=== PATIENT | female | born 1965 | race Caucasian/White ===

== ENCOUNTER → 2016-10-14 | Outpatient (CLI) | payer BC ==
[~2016-10-14] MED LIST: VALA500T60 PO
== END | disposition home or self-care (01) ==
LOC: C.LAB1850 09:43
PROVIDERS: ATTEND Family Medicine
DX: Z11.59 Encounter for screening for other viral diseases (principal)

== ENCOUNTER → 2017-01-06 | Outpatient (CLI) | payer BC ==
[~2017-01-06] MED LIST changes: +ATV5X PO; +CMP/10 PO; +DXM/4 PO; +FAMO20TA11 IV; +LVNIS40 SQ; +METO-157 PO; +MRLP527 PO; +ONDA-63 PO; +OXYC-292 PO; +OXYC-609 PO; +PANC1CAP PO; +PANT40TA2 PO; +PIPE1INJ11 IV; +SCOP1.5D2 TD; +SENN1TAB91 PO; +SIME1CAP9 PO; +VANC1CAP3 IV
== END | disposition home or self-care (01) ==
LOC: C.PAPS 08:55
PROVIDERS: ATTEND Obstetrics & Gynecology
DX: Z01.419 Encounter for gynecological examination (general) (routine) without abnormal findings (principal)

== ENCOUNTER → 2017-06-13 | Outpatient (CLI) | payer BC ==
[~2017-06-13] MED LIST changes: -ATV5X PO; -CMP/10 PO; -DXM/4 PO; -FAMO20TA11 IV; -LVNIS40 SQ; -METO-157 PO; -MRLP527 PO; -ONDA-63 PO; -OXYC-292 PO; -OXYC-609 PO; -PANC1CAP PO; -PANT40TA2 PO; -PIPE1INJ11 IV; -SCOP1.5D2 TD; -SENN1TAB91 PO; -SIME1CAP9 PO; -VANC1CAP3 IV
--- NOTE | 2017-06-14 15:12 | MAMMOGRAPHY REPORT ---
BILATERAL DIGITAL SCREENING MAMMOGRAM TOMOSYNTHESIS WITH CAD: 06/13/2017 CLINICAL HISTORY: Routine screening. Patient has no complaints. TECHNIQUE: Breast tomosynthesis in addition to standard 2D mammography was performed. Current study was also evaluated with a Computer Aided Detection (CAD) system. COMPARISON: Comparison is made to exams dated: 06/10/2016 mammogram, 06/02/2015 mammogram, 05/30/2014 ma mmogram, 05/28/2013 mammogram, 05/26/2012 mammogram, and 05/27/2011 mammogram - [facility]. BREAST COMPOSITION: There are scattered areas of fibroglandular density in both breasts. FINDINGS: There are 3 stable circumscribed subcentimeter masses in the left breast. A few benign ri m calcifications bilaterally. No new suspicious mass, architectural distortion or cluster of microcal cifications is seen. IMPRESSION: ACR BI-RADS CATEGORY 2: BENIGN There is no mammographic evidence of malignancy. A 1 year screening mammogram is recommended. The pa tient will receive written notification of the results. Approximately 10% of breast cancers are not detected with mammography. A negative mammographic report should not delay biopsy if a clinically suggestive mass is present. Maricruz Zeng M.D. ay/:06/13/2017 16:21:51 Laborer Pipelines: Rona PATEL)(Angie)(BD), [facility] letter sent: Normal 1/2 BI-RADS Code: ACR BI-RADS Category 2: Benign
== END | disposition home or self-care (01) ==
LOC: C.MAMM 10:28
PROVIDERS: ATTEND Obstetrics & Gynecology
DX: Z12.31 Encounter for screening mammogram for malignant neoplasm of breast (principal)

== ENCOUNTER → 2017-06-25 | Outpatient (CLI) | payer BC ==
[2017-06-25 16:49] LABS: BASO % 0.6 %; BASO ABS # 0.05 K/uL (0-0.2); EOS % 1.1 %; HEMATOCRIT 40.2 % (37-47); IG% 0.2 %; LYMPH % 30.7 %; LYMPH ABS # 2.63 K/uL (1.2-3.4); MEAN CELL VOLUME 94.8 fL (80-100); MEAN CORPUSCULAR HEMOGLOBIN 31.4 pg (25-34); MEAN PLATELET VOLUME 12.2 fL (7.4-10.4); MONO % 9.5 %; NEUT % 57.9 %; PLATELET COUNT 209 K/uL (130-400); RED BLOOD COUNT 4.24 M/uL (4.2-5.4); WHITE BLOOD COUNT 8.56 K/uL (4.8-10.8)
[2017-06-25 16:50] LABS: COMPLETE YES; MEAN CORPUSCULAR HGB CONC 33.1 g/dl (32-36)
[2017-06-25 17:05] LABS: PROTHROMBIN TIME (PATIENT) 10.3 SECONDS (9.0-12.0)
[2017-06-25 17:32] LABS: ALKALINE PHOSPHATASE 463 U/L (45-117); ALT/SGPT 628 U/L (12-78); AST/SGOT 292 U/L (15-37); BLOOD UREA NITROGEN 12 mg/dl (7-18); BUN/CREATININE RATIO 14.9 (10-20); CALCIUM 9.7 mg/dl (8.5-10.1); CARBON DIOXIDE 26 mmol/L (21-32); CHLORIDE 102 mmol/L (98-107); CREATININE 0.77 mg/dl (0.60-1.20); GLUCOSE 88 mg/dl (70-99); POTASSIUM 3.5 mmol/L (3.5-5.1); SODIUM 138 mmol/L (136-145)
--- NOTE | 2017-06-25 17:47 | DIAGNOSTIC IMAGING REPORT ---
ABDOMINAL ULTRASOUND, RIGHT UPPER QUADRANT HISTORY: JAUNDICE R17 *STAT JAUNDICE R17 *STAT. COMPARISON: Abdomen and pelvis CT 11/07/2015. FINDINGS: Pancreas: The pancreas demonstrates a normal echotexture. Main pancreatic duct is normal in caliber measuring 2 mm Liver: 20 cm in length. There is moderate intrahepatic bile duct dilatation. Gallbladder: The gallbladder is distended measuring up to 13 cm in length. The gallbladder is filled with sludge. CBD: Distended up to 1.3 cm. Right kidney: No hydronephrosis. The 2.0 x 1.9 x 1.8 cm complex interpolar lesion is again noted. This is similar in size compared to the prior study. IMPRESSION: 1. Interval development of moderate intra and extra hepatic bile duct dilatation. This raises the possibility of an obstructing gallstone or mass. Of note, the pancreas appears to be unremarkable and the main pancreatic duct is not distended. Follow-up ERCP is recommended for further evaluation. 2. Distended gallbladder filled with sludge. This could represent developing acute cholecystitis. Clinical correlation recommended. 3. Mild hepatomegaly. 4. No significant change in size in the 2 cm complex indeterminate lesion within the right kidney. Electronically signed by: Jone Huitron M.D. 06/25/2017 5:46 PM Dictated Date/Time: 06/25/2017 5:40 PM
[2017-06-25 18:04] LABS: URINE APPEARANCE CLEAR (CLEAR); URINE COLOR DK YELLOW; URINE EPITHELIAL CELL AUTO 0-5 /lpf (0-5); URINE NITRITE NEG (NEG); URINE SPECIFIC GRAVITY 1.012 (1.000-1.030); UROBILINOGEN NEG (NEG)
[2017-06-25 18:19] LABS: MANUAL MICROSCOPIC REQUIRED? NO; REVIEW REQ? NO; URINE BILIRUBIN 1+ (NEG)
== END | disposition home or self-care (01) ==
LOC: C.ULTR 15:37
PROVIDERS: ATTEND Family Medicine Adolescent Medicine
DX: R17 Unspecified jaundice (principal)

== ENCOUNTER 2017-06-28 06:00 | Inpatient (IN) | payer BC ==
[~2017-06-28] VITALS: Ht 160 cm; Wt 72.7 kg
[2017-06-28] MEDS ORDERED: SODIUM CHLORIDE 0.9% 1000ML 1,000 ML IV STA ×2 (06:43→07:20)
[2017-06-28 06:45] LABS: BASO % 0.6 %; BASO ABS # 0.05 K/uL (0-0.2); COMPLETE YES; EOS % 1.4 %; HEMATOCRIT 38.9 % (37-47); IG% 0.1 %; LYMPH ABS # 2.35 K/uL (1.2-3.4); MEAN CELL VOLUME 91.3 fL (80-100); MEAN CORPUSCULAR HEMOGLOBIN 32.9 pg (25-34); MEAN PLATELET VOLUME 12.2 fL (7.4-10.4); MONO % 9.8 %; NEUT % 58.1 %; PLATELET COUNT 200 K/uL (130-400); RED BLOOD COUNT 4.26 M/uL (4.2-5.4); WHITE BLOOD COUNT 7.84 K/uL (4.8-10.8)
[2017-06-28] MEDS ORDERED: ONDANSETRON INJ 2 MG/ML 2 ML VIAL IV STA (06:47)
[2017-06-28] MEDS: HYDROmorphone INJ 1 MG/ML SYR IV PRN ×3 (06:54→22:01)
[2017-06-28 07:06] LABS: ALB/GLOB RATIO 0.8 (0.9-2); BUN/CREATININE RATIO 14.6 (10-20); CALCIUM 9.8 mg/dl (8.5-10.1); CREATININE 0.6 mg/dl (0.60-1.20); POTASSIUM 3.8 mmol/L (3.5-5.1)
[2017-06-28] MEDS ORDERED: AMPICILLIN/SULBACTAM SOD INJ 3,000 MG in SODIUM CHLORIDE 0.9% 100ML 100 ML IV ONE (07:15)
--- NOTE | 2017-06-28 08:13 | DIAGNOSTIC IMAGING REPORT ---
GALLBLADDER-ABD LIMITED HISTORY: 52 years-old Female worsening jaundice, severe RUQ pain acute right upper quadrant abdominal pain. Initial exam. COMPARISON: Ultrasound of the abdomen 06/25/2017, CT study 11/07/2015 TECHNIQUE: Multiple real-time sonographic images of the abdominal right upper quadrant were obtained assessing grayscale appearance and color flow. FINDINGS: The imaged pancreas is unremarkable and the pancreatic duct measures within the upper limits of normal at 3 mm. The common bile duct is again dilated, 1.1 cm which appears unchanged from prior. Moderate intrahepatic biliary ductal dilation is redemonstrated. No definite obstructing stone or mass is seen. The liver measures up to 21.8 cm in length. Distended sludge-filled gallbladder is again seen without definite gallbladder wall thickening. Gallbladder measures up to 13.3 cm in length. There is trace pericholecystic fluid noted. A positive sonographic Wild's sign was not reported. Complex indeterminate 2.4 cm lesion of the interpolar right kidney is again seen. This appears unchanged from prior. IMPRESSION: 1. Persistent moderate intrahepatic and extrahepatic biliary ductal dilation without definite obstructing stone or mass identified. The pancreatic duct measures in the upper limits of normal at 3 mm. Again, correlation with ERCP is recommended. 2. Sludge filled distended gallbladder is noted with trace pericholecystic fluid. Correlate clinically to exclude developing acute cholecystitis. 3. Complex indeterminate 2.4 cm right kidney lesion redemonstrated. The above report was generated using voice recognition software. It may contain grammatical, syntax or spelling errors. Electronically signed by: Matt Escalante M.D. 06/28/2017 8:11 AM Dictated Date/Time: 06/28/2017 8:05 AM
[2017-06-28] MEDS ORDERED: MAGNESIUM HYDROXIDE SUSP 30 ML UDC PO PRN (08:45)
[2017-06-28] MEDS ORDERED: ACETAMINOPHEN 325 MG TAB PO PRN (08:45)
[2017-06-28] MEDS ORDERED: ONDANSETRON INJ 2 MG/ML 2 ML VIAL IV PRN ×2 (08:45→15:45)
[2017-06-28] MEDS ORDERED: POLYETHYLENE (MIRALAX) 17 GM PACK PO PRN (08:45)
[2017-06-28 09:08] VITALS: O2SAT 99; Ht 160 cm; Wt 72.7 kg
--- NOTE | 2017-06-28 09:17 | History and Physical ---
History & Physical Date & Time of Service: Jun 28, 2017 at 08:54 Chief Complaint: Jaundice,Nausea,Pain Primary Care Physician: Carla Carolina C.R.N.P. History of Present Illness Source: patient This is a 52 yo F with PMHx of recurrent SBO, asthma, depression, R renal mass found to be renal glomerulosclerosis sized 1.[address] a/p on 11/07/15, and genital herpes simplex virus who presents after 1 week of feeling ill/abdominal pain. She reports last tuesday thought she had food poisioning d/t 1 episode of nausea and vomiting. She has had a decline in appetite over the past week as well. On Tuesday she developed worsening abdominal pain in the RUQ which wrapped around to her back, pain worsened, and due to concerns for hx of SBO, she presented to an urgent care center. A RUQ ultrasound was completed showing gallbladder sludge. She was scheduled for an ERCP today with Dr. Jackman. Pt has also noticed an increase in yellow colored skin and eyes. Yesterday her pain , nausea, and episodes of vomiting worsened so she presented to the ER today. Pt notes her bowel s moved yesterday and were tim colored, loose and floating. She denies fever, chills or sweats. Pt denies intake of alcohol other than 1x monthly. 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 Her pain is currently tolerable after pain medications administered in the ER. Here in [place] [id number], total bili is 9.8. AST 306, ALT 535, Alk phos 496. CBC wnl. VSS Gallbladder U/S reviewed showing CBD dilation to 1.1 cm, gallbladder sludge and trace pericholecystic fluid, and renal lesion measuring 2.4 cm. Past Medical/Surgical History Medical Problems: (1) Abdominal pain Status: Resolved (2) Asthma, Unspecified Status: Chronic (3) Depressive Disorder Nec Status: Chronic (4) Hand laceration Status: Resolved (5) Hemoperitoneum Status: Resolved (6) Ileus Status: Resolved (7) Ileus Status: Resolved (8) Ovarian cyst Status: Resolved (9) Renal cyst Status: Resolved (10) Small bowel obstruction Status: Resolved (11) Syncope Status: Resolved Surgical Problems: (1) History of appendectomy Status: Resolved (2) S/P tubal ligation Status: Resolved (3) Status post endometrial ablation Status: Resolved Family History Patient reports no known family medical history. Social History Smoking Status: Never Smoker Smokeless Tobacco Use: No Alcohol Use: occasionally Drug Use: none Marital Status: Occupational Status: employed Immunizations History of Influenza Vaccine: Unknown History of Tetanus Vaccine?: Unknown History of Pneumococcal: Unknown History of Hepatitis B Vaccine: Unknown Multi-Drug Resistant Organisms History of MDRO: No Allergies Coded Allergies: No Known Allergies (Unverified , 06/28/17) Home Medications Scheduled Valacyclovir (Valtrex), 500 MG PO DAILY Review of Systems Constitutional: No fever, No chills, No sweats Eyes: No diplopia, No problem reported ENT: No trouble swallowing Respiratory: No cough, No shortness of breath, No dyspnea on exertion Cardiovascular: No chest pain, No palpitations Abdomen: + pain, + nausea, + vomiting Musculoskeletal: No joint pain, No swelling Genitourinary - Female: No dysuria Neurologic: No memory loss, No numbness/tingling Psychiatric: No depression symptoms, No anxiety Endocrine: No fatigue Integumentary: No rash, No itch Physical Exam Vital Signs Date Time Temp Pulse Resp B/P (MAP) Pulse Ox O2 Delivery O2 Flow Rate FiO2 06/28/17 07:56 61 22 132/79 97 Room Air 06/28/17 06:57 67 23 148/95 99 Room Air 06/28/17 06:38 55 06/28/17 06:37 61 16 156/97 96 Room Air 06/28/17 06:03 36.9 70 20 156/83 97 Room Air General Appearance: WD/WN, + mild distress, + pertinent finding (+ jaundice) Head: normocephalic, atraumatic Eyes: PERRL, EOMI, + abnormal sclerae exam (+icterus) ENT: hearing grossly normal, pharynx normal Neck: supple, no JVD Respiratory/Chest: lungs clear, no respiratory distress, no accessory muscle use Cardiovascular: regular rate, rhythm, no murmur, + bradycardia Abdomen/GI: soft, + tenderness (RUQ, no guarding or rebound tenderness, negative Murpheys sign), + pertinent finding (hypoactive bowel sounds) Back: normal inspection, no CVA tenderness Extremities/Musculoskelatal: no calf tenderness, no pedal edema Neurologic/Psych: alert, normal mood/affect, oriented x 3 Skin: warm/dry, + jaundice Diagnostics Laboratory Results Results Past 24 Hours Test 06/28/17 06:25 Range/Units White Blood Count 7.84 4.8-10.8 K/uL Red Blood Count 4.26 4.2-5.4 M/uL Hemoglobin 14.0 12.0-16.0 g/dL Hematocrit 38.9 37-47 % Mean Corpuscular Volume 91.3 80-100 fL Mean Corpuscular Hemoglobin 32.9 25-34 pg Mean Corpuscular Hemoglobin Concent 36.0 32-36 g/dl Platelet Count 200 130-400 K/uL Mean Platelet Volume 12.2 7.4-10.4 fL Neutrophils (%) (Auto) 58.1 % Lymphocytes (%) (Auto) 30.0 % Monocytes (%) (Auto) 9.8 % Eosinophils (%) (Auto) 1.4 % Basophils (%) (Auto) 0.6 % Neutrophils # (Auto) 4.55 1.4-6.5 K/uL Lymphocytes # (Auto) 2.35 1.2-3.4 K/uL Monocytes # (Auto) 0.77 0.11-0.59 K/uL Eosinophils # (Auto) 0.11 0-0.5 K/uL Basophils # (Auto) 0.05 0-0.2 K/uL RDW Standard Deviation 43.3 36.4-46.3 fL RDW Coefficient of Variation 13.0 11.5-14.5 % Immature Granulocyte % (Auto) 0.1 % Immature Granulocyte # (Auto) 0.01 0.00-0.02 K/uL Sodium Level 137 136-145 mmol/L Potassium Level 3.8 3.5-5.1 mmol/L Chloride Level 102 98-107 mmol/L Carbon Dioxide Level 24 21-32 mmol/L Anion Gap 11.0 3-11 mmol/L Blood Urea Nitrogen 9 7-18 mg/dl Creatinine 0.60 0.60-1.20 mg/dl Est Creatinine Clear Calc Drug Dose 102.4 ml/min Estimated GFR () 119.8 Estimated GFR (Non- 103.3 BUN/Creatinine Ratio 14.6 10-20 Random Glucose 87 70-99 mg/dl Calcium Level 9.8 8.5-10.1 mg/dl Total Bilirubin 9.8 0.2-1 mg/dl Aspartate Amino Transf (AST/SGOT) 306 15-37 U/L Alanine Aminotransferase (ALT/SGPT) 535 12-78 U/L Alkaline Phosphatase 496 45-117 U/L Total Protein 7.8 6.4-8.2 gm/dl Albumin 3.5 3.4-5.0 gm/dl Globulin 4.3 2.5-4.0 gm/dl Albumin/Globulin Ratio 0.8 0.9-2 Lipase 83291 73-393 U/L Diagnostic Radiology GALLBLADDER-ABD LIMITED HISTORY: 52 years-old Female worsening jaundice, severe RUQ pain acute right upper quadrant abdominal pain. Initial exam. COMPARISON: Ultrasound of the abdomen 06/25/2017, CT study 11/07/2015 TECHNIQUE: Multiple real-time sonographic images of the abdominal right upper quadrant were obtained assessing grayscale appearance and color flow. FINDINGS: The imaged pancreas is unremarkable and the pancreatic duct measures within the upper limits of normal at 3 mm. The common bile duct is again dilated, 1.1 cm which appears unchanged from prior. Moderate intrahepatic biliary ductal dilation is redemonstrated. No definite obstructing stone or mass is seen. The liver measures up to 21.8 cm in length. Distended sludge-filled gallbladder is again seen without definite gallbladder wall thickening. Gallbladder measures up to 13.3 cm in length. There is trace pericholecystic fluid noted. A positive sonographic Wild's sign was not reported. Complex indeterminate 2.4 cm lesion of the interpolar right kidney is again seen. This appears unchanged from prior. IMPRESSION: 1. Persistent moderate intrahepatic and extrahepatic biliary ductal dilation without definite obstructing stone or mass identified. The pancreatic duct measures in the upper limits of normal at 3 mm. Again, correlation with ERCP is recommended. 2. Sludge filled distended gallbladder is noted with trace pericholecystic fluid. Correlate clinically to exclude developing acute cholecystitis. 3. Complex indeterminate 2.4 cm right kidney lesion redemonstrated. The above report was generated using voice recognition software. It may contain grammatical, syntax or spelling errors. Electronically signed by: Matt Escalante M.D. 06/28/2017 8:11 AM Dictated Date/Time: 06/28/2017 8:05 AM The status of this report is Signed. EKG Vent. rate 57 BPM WY interval 128 ms QRS duration 108 ms QT/QTc 450/438 ms P-R-T axes 38 49 38 Sinus bradycardia Minimal voltage criteria for LVH, may be normal variant Borderline ECG When compared with ECG of 13-NOV-2014 14:50, No significant change was found Impression Assessment and Plan This is a 52 yo F with PMHx of recurrent SBO, asthma, depression, R renal mass found to be renal glomerulosclerosis sized 1.[address] a/p on 11/07/15, and genital herpes simplex virus who presents after 1 week of feeling ill/abdominal pain. Pancreatitis, possibly due to gallstone/sludge ?Cholecystitis - [place] [address], total bili is 9.8. AST 306, ALT 535, Alk phos 496. - CBC wnl. - VSS - Gallbladder U/S reviewed showing CBD dilation to 1.1 cm, gallbladder sludge and trace pericholecystic fluid, and renal lesion measuring 2.4 cm. - Was started on Unasyn in the ER, will continue on Zosyn - Lactate ringers at 200ml/hr x 1 day - Pain control with dilaudid IV - GI consult, Dr. Tavera for ERCP today - NPO except meds for now Hx of SBO - Pt initially had SBO occur in 2012 which was resolved with bowel rest. Previous surgical intervention includes appendectomy, endometrial ablation and tubal ligation. Had laparoscopic surgery in Sep 2016 for lysis of adhesions and has not had SBO since that time - Repeat CT scan to r/o Hx of R renal lesion - Last CT completed on 11/07/15 which showed stability of the lesion. Biopsy was done in 2013 which showed renal glomerulosclerosis and is being monitored by her PCP, Dr. Harry with yearly CTs. - Repeat CT abd ordered here in the ER Bradycardia - Athletic heart secondary to intensive physical training. Asthma - Stable, not currently on any medications Depression - Improved with exercise and emotional wellbeing. 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 DVT ppx: Teds, scds, heparin subq CODE STATUS: FULL CODE Disposition: From home, discharge when medically stable. Level of Care Med/Surg Advanced Directives Existing Advance Directive: No Existing Living Will: No Existing Power of Machine Ii Cutter: No Existing Health Care Proxy: No Resuscitation Status FULL RESUSCITATION VTE Prophylaxis VTE Risk Assessment Done? Y/N: Yes Risk Level: Low Given or contraindicated: Unfractionated heparin SQ, T.E.D. Stockings, SCD's Note Attending Admission note & attestation: Pt seen/examined, chart reviewed, care plan d/w AMIE Ortiz. I agree with the mohan components of her admission documentation. 52yo female with h/o SBO and right-sided renal lesion (benign) who presented today with worsening abdominal pain. Labs c/w acute pancreatitis along with obstructive jaundice. Symptoms began about 7-10 days ago when she developed painless jaundice. This, however, changed in the last 3-4 days when her abdominal pain began. Chronically she has been in good health as she had been training for an "[employer] " competition. PMH, PSH, allergies, meds, sochx, famhx, ros - reviewed VSS gen - NAD, anxious skin - jaundice to about the upper chest eyes - icteric mouth - MM dry heart - RRR lungs - CTA b/l abd - liver edge palpable but nontender, minimal tenderness epigastric region, BS+ ext - no edema CT findings reviewed labs reviewed A/P: 1. acute pancreatitis - 2nd to gallstones/sludge? NPO, copious LR, pain meds, serial labs 2. abnormal pancreas with potential pancreatic head lesion - concerning for cancer. 3. liver lesions - concerning for metastatic cancer. 4. obstructive jaundice - to endo suite today for ERCP with Dr. Tavera. ERCP will dictate plan of care May need gen surgery consult Misha Walter MD Additional Copies To Carla Carolina C.R.N.P.
[2017-06-28] MEDS ORDERED: OPTIRAY 320 IV PRN (09:30)
[2017-06-28 09:39] LABS: URINE APPEARANCE CLOUDY (CLEAR); URINE COLOR DK YELLOW; URINE EPITHELIAL CELL AUTO 0-5 /lpf (0-5); URINE NITRITE NEG (NEG); URINE SPECIFIC GRAVITY 1.019 (1.000-1.030); UROBILINOGEN NEG (NEG); ZZUR CULT IF INDIC CLEAN CATCH NO
[2017-06-28 09:48] LABS: MANUAL MICROSCOPIC REQUIRED? NO; REVIEW REQ? NO; URINE BILIRUBIN 3+ (NEG)
--- NOTE | 2017-06-28 09:51 | EMERGENCY ROOM VISIT NOTE ---
History Report prepared by Duc: Patrick Blake Under the Supervision of: Dr. Jelani Acevedo M.D. First contact with patient: 06:43 Chief Complaint: OTHER COMPLAINT Stated Complaint: JAUNDICE,NAUSEA,PAIN History of Present Illness The patient is a 52 year old female who presents to the Emergency Room with complaints of worsening abdominal pain for the past three days. She currently rates her discomfort as an 8/10 in severity. The patient additionally states that she has been jaundiced for the past four days, and she states that she is scheduled for a ERCP today. She states that recently they did an ultrasound of her gall bladder, and they found sludge, her bile ducts were enlarged, her liver was enlarged, and her liver enzymes are elevated. She additionally has been tested for hepatitis, and she was negative for C and B, though she is unsure about A. She states that she has no known exposure to hepatitis. She states that she has not taken a lot of Tylenol, alcohol, and she has not eaten any raw mushrooms. She states that she has not been prescribed anything for pain , and she states that she has had a lot of surgeries, and her last one was in September to remove scar tissue in her bowels. She states that she has been nauseous, and she has been having some diarrhea. Pt denies LOC, headache, fevers , chills, diaphoresis, visual changes, neck pain, chest pain, breathing difficulties, vomiting, back pain, melena, hematochezia, urinary symptoms, numbness, weakness, lymphadenopathy, rash, itchiness, or other complaints. Source of History: patient Onset: three days ago Position: abdomen Symptom Intensity: 8/10 Timing: worsening Associated Symptoms: + nausea, + diarrhea Note: Associated symptoms: Jaundiced Review of Systems See HPI for pertinent positives and negatives. A total of ten systems were reviewed and were otherwise negative. Past Medical & Surgical Medical Problems: (1) Abdominal pain (2) Acute gallstone pancreatitis (3) Asthma, Unspecified (4) Asthma, Unspecified (5) Depressive Disorder Nec (6) Hand laceration (7) Hemoperitoneum (8) Ileus (9) Ileus (10) Ovarian cyst (11) Renal cyst (12) Small bowel obstruction (13) Small bowel obstruction (14) Syncope Surgical Problems: (1) History of appendectomy (2) S/P tubal ligation (3) Status post endometrial ablation Family History Patient reports no known family medical history. Social History Smoking Status: Never Smoker Alcohol Use: occasionally Drug Use: none Marital Status: Housing Status: lives with family Occupation Status: employed Current/Historical Medications Scheduled Valacyclovir (Valtrex), 500 MG PO DAILY Allergies Uncoded Allergies: STITCHES (Allergy, Unknown, did not heal, 06/28/17) Physical Exam Vital Signs Date Time Temp Pulse Resp B/P (MAP) Pulse Ox O2 Delivery O2 Flow Rate FiO2 06/28/17 09:10 58 21 126/72 99 Room Air 06/28/17 09:08 99 Room Air 06/28/17 07:56 61 22 132/79 97 Room Air 06/28/17 06:57 67 23 148/95 99 Room Air 06/28/17 06:38 55 06/28/17 06:37 61 16 156/97 96 Room Air 06/28/17 06:03 36.9 70 20 156/83 97 Room Air Physical Exam GENERAL: Awake, alert, uncomfortable-appearing, in no distress HENT: Normocephalic, atraumatic. Oropharynx unremarkable. EYES: Normal conjunctiva. Scleral icterus. NECK: Supple. No nuchal rigidity. FROM. No JVD. RESPIRATORY: Clear to auscultation. CARDIAC: Regular rate, normal rhythm. Extremities warm and well perfused. Pulses equal. ABDOMEN: Right upper quadrant tenderness. Soft, non-distended. No rebound or guarding. No masses. RECTAL: Deferred. MUSCULOSKELETAL: Chest examination reveals no tenderness. The back is symmetrical on inspection without obvious abnormality. There is no CVA tenderness to palpation. No joint edema. LOWER EXTREMITIES: Calves are equal size bilaterally and non-tender. No edema. No discoloration. NEURO: Normal sensorium. No sensory or motor deficits noted. SKIN: Significant jaundice. No rash Medical Decision & Procedures ER Provider Diagnostic Interpretation: Radiology results as stated below per my review and radiologist interpretation: GALLBLADDER-ABD LIMITED HISTORY: 52 years-old Female worsening jaundice, severe RUQ pain acute right upper quadrant abdominal pain. Initial exam. COMPARISON: Ultrasound of the abdomen 06/25/2017, CT study 11/07/2015 TECHNIQUE: Multiple real-time sonographic images of the abdominal right upper quadrant were obtained assessing grayscale appearance and color flow. FINDINGS: The imaged pancreas is unremarkable and the pancreatic duct measures within the upper limits of normal at 3 mm. The common bile duct is again dilated, 1.1 cm which appears unchanged from prior. Moderate intrahepatic biliary ductal dilation is redemonstrated. No definite obstructing stone or mass is seen. The liver measures up to 21.8 cm in length. Distended sludge-filled gallbladder is again seen without definite gallbladder wall thickening. Gallbladder measures up to 13.3 cm in length. There is trace pericholecystic fluid noted. A positive sonographic Wild's sign was not reported. Complex indeterminate 2.4 cm lesion of the interpolar right kidney is again seen. This appears unchanged from prior. IMPRESSION: 1. Persistent moderate intrahepatic and extrahepatic biliary ductal dilation without definite obstructing stone or mass identified. The pancreatic duct measures in the upper limits of normal at 3 mm. Again, correlation with ERCP is recommended. 2. Sludge filled distended gallbladder is noted with trace pericholecystic fluid. Correlate clinically to exclude developing acute cholecystitis. 3. Complex indeterminate 2.4 cm right kidney lesion redemonstrated. The above report was generated using voice recognition software. It may contain grammatical, syntax or spelling errors. Electronically signed by: Matt Escalante M.D. 06/28/2017 8:11 AM Dictated Date/Time: 06/28/2017 8:05 AM Laboratory Results 06/28/17 06:25 Red Blood Count 4.26, Mean Corpuscular Volume 91.3, Mean Corpuscular Hemoglobin 32.9, Mean Corpuscular Hemoglobin Concent 36.0, Mean Platelet Volume 12.2, Neutrophils (%) (Auto) 58.1, Lymphocytes (%) (Auto) 30.0, Monocytes (%) (Auto) 9.8, Eosinophils (%) (Auto) 1.4, Basophils (%) (Auto) 0.6, Neutrophils # (Auto) 4.55, Lymphocytes # (Auto) 2.35, Monocytes # (Auto) 0.77, Eosinophils # (Auto) 0.11, Basophils # (Auto) 0.05 06/28/17 06:25 Test 06/28/17 06:25 06/28/17 09:03 White Blood Count 7.84 K/uL (4.8-10.8) Red Blood Count 4.26 M/uL (4.2-5.4) Hemoglobin 14.0 g/dL (12.0-16.0) Hematocrit 38.9 % (37-47) Mean Corpuscular Volume 91.3 fL (80-100) Mean Corpuscular Hemoglobin 32.9 pg (25-34) Mean Corpuscular Hemoglobin Concent 36.0 g/dl (32-36) Platelet Count 200 K/uL (130-400) Mean Platelet Volume 12.2 fL (7.4-10.4) Neutrophils (%) (Auto) 58.1 % Lymphocytes (%) (Auto) 30.0 % Monocytes (%) (Auto) 9.8 % Eosinophils (%) (Auto) 1.4 % Basophils (%) (Auto) 0.6 % Neutrophils # (Auto) 4.55 K/uL (1.4-6.5) Lymphocytes # (Auto) 2.35 K/uL (1.2-3.4) Monocytes # (Auto) 0.77 K/uL (0.11-0.59) Eosinophils # (Auto) 0.11 K/uL (0-0.5) Basophils # (Auto) 0.05 K/uL (0-0.2) RDW Standard Deviation 43.3 fL (36.4-46.3) RDW Coefficient of Variation 13.0 % (11.5-14.5) Immature Granulocyte % (Auto) 0.1 % Immature Granulocyte # (Auto) 0.01 K/uL (0.00-0.02) Anion Gap 11.0 mmol/L (3-11) Est Creatinine Clear Calc Drug Dose 102.4 ml/min Estimated GFR () 119.8 Estimated GFR (Non- 103.3 BUN/Creatinine Ratio 14.6 (10-20) Calcium Level 9.8 mg/dl (8.5-10.1) Total Bilirubin 9.8 mg/dl (0.2-1) Aspartate Amino Transf (AST/SGOT) 306 U/L (15-37) Alanine Aminotransferase (ALT/SGPT) 535 U/L (12-78) Alkaline Phosphatase 496 U/L (45-117) Total Protein 7.8 gm/dl (6.4-8.2) Albumin 3.5 gm/dl (3.4-5.0) Globulin 4.3 gm/dl (2.5-4.0) Albumin/Globulin Ratio 0.8 (0.9-2) Lipase 92954 U/L (73-393) Urine Color DK YELLOW Urine Appearance CLOUDY (CLEAR) Urine pH 7.0 (4.5-7.5) Urine Specific [place] 1.019 (1.000-1.030) Urine Protein NEG (NEG) Urine Glucose (UA) NEG (NEG) Urine Ketones 2+ (NEG) Urine Occult Blood NEG (NEG) Urine Nitrite NEG (NEG) Urine Bilirubin 3+ (NEG) Urine Urobilinogen NEG (NEG) Urine Leukocyte Esterase TRACE (NEG) Urine WBC (Auto) 0 /hpf (0-5) Urine RBC (Auto) 0-4 /hpf (0-4) Urine Hyaline Casts (Auto) 0 /lpf (0-5) Urine Epithelial Cells (Auto) 0-5 /lpf (0-5) Urine Bacteria (Auto) NEG (NEG) Laboratory results reviewed by me Medications Administered Medications (Trade) Dose Ordered Sig/Poppy Route Start Time Stop Time Status Last Admin Dose Admin Sodium Chloride 1,000 ml @ 250 mls/hr Q4H STAT IV 06/28/17 06:43 06/28/17 10:42 06/28/17 06:54 250 MLS/HR Hydromorphone HCl (Dilaudid Inj) 1 mg Q15M PRN IV 06/28/17 07:00 07/12/17 06:59 06/28/17 09:08 1 MG Ondansetron HCl (Zofran Inj) 4 mg NOW STAT IV 06/28/17 06:47 06/28/17 06:48 DC 06/28/17 06:54 4 MG Ampicillin Sodium/ Sulbactam Sodium 3000 mg/Sodium Chloride 108 ml @ 200 mls/hr ONE ONCE IV 06/28/17 07:15 06/28/17 07:47 DC 06/28/17 07:29 200 MLS/HR Sodium Chloride 1,000 ml @ 999 mls/hr Q1H1M STAT IV 06/28/17 07:20 06/28/17 08:20 DC 06/28/17 07:29 999 MLS/HR ECG Indication: abdominal pain Rate (beats per minute): 57 Rhythm: sinus bradycardia Findings: no acute ischemic change, no ectopy, other (LVH) ED Course 0643: The patient was evaluated in room A3. A complete history and physical exam was performed. I ordered Sodium Chloride 1000 ml @ 250 mls/hr IV 0647: Zofran Inj 4mg IV 0700: Dilaudid Inj 1mg IV 0715: Ampicillin Sodium/ Sulbactam Sodium 3000mg/ Sodium Chloride 108ml @ 200mls/hr IV 0720: Sodium Chloride 1000 ml @ 999 mls/hr IV 0724: I reevaluated the patient, and I discussed the treatment plan with her. 0755: I discussed the patient's case with ALEXANDRIA Way, and he states that he will evaluate the patient. He agrees with [facility] use of antibiotics, CT scan, and further evaluation by a hospitalist. 08: Discussed the patient's case With Dr. Walter. The patient will be evaluated for further treatment and disposition. 0905: I reevaluated the patient, and she was doing well. Medical Decision Triage Nursing notes reviewed. The patient's presentation and history were concerning for abdominal and jaundice. Etiologies such as biliary pathology, pancreatitis, appendicitis, diverticulitis , obstruction, inflammatory bowel disease, renal colic, PUD, mesenteric ischemia, aortic pathology, infections, genitourinary, UTI, perforated viscus, as well as others were entertained. The patient was evaluated. She was uncomfortable. She had right upper quadrant tenderness. She was hydrated with normal saline and received a normal saline bolus. She received Zofran and multiple doses of IV Dilaudid. Blood work was obtained. Her CBC was unremarkable. Chemistry panel revealed elevated LFTs which were slightly worse than prior. The patient's urinalysis is pending. Her right upper quadrant ultrasound revealed findings concerning for an obstructive pattern with possible early cholecystitis. Given the pain the patient received IV Unasyn. I did consult with estrogen neurology who will evaluate the patient. I also consulted with internal medicine for admission. CT scan of the abdomen and pelvis was ordered. Results are pending. The patient was evaluated in the Emergency Room by internal medicine and admitted for further treatment. Medication Reconcilliation Current Medication List: was personally reviewed by me Blood Pressure Screening Patient's blood pressure: Elevated blood pressure Blood pressure disposition: Elevated BP felt to be situational Consults Time Called: 726 Consulting Physician: ALEXANDRIA Way Returned Call: [phone] I discussed the patient's case with Dr. Inverso, GI, and he states that he will evaluate the patient. He agrees with [facility] use of antibiotics, CT scan, and further evaluation by a hospitalist. Additional Consults: Time Called: 726 Consulted Physician: Dr. Walter Returned Call: 08 Additional Comments: Discussed the patient's case with Dr. Walter. The patient will be evaluated for further treatment and disposition. Impression Primary Impression: Pancreatitis Additional Impressions: Elevated LFTs Right upper quadrant abdominal pain Scribe Attestation The scribe's documentation has been prepared under my direction and personally reviewed by me in its entirety. I confirm that the note above accurately reflects all work, treatment, procedures, and medical decision making performed by me. Departure Information Dispostion Being Evaluated By Hospitalist Referrals Carla Carolina C.R.N.P. (PCP) Patient Instructions My [facility] Problem Qualifiers
[2017-06-28] MEDS ORDERED: PIPERACILLIN/TAZOBACTAM 4.5 GM/100ML D5W IV SCH (10:00)
[2017-06-28 10:30] VITALS: BP 154/87; PULSE 53; TEMP 36.6; O2SAT 96
--- NOTE | 2017-06-28 11:06 | DIAGNOSTIC IMAGING REPORT ---
ABDOMEN AND PELVIS CT WITH AND WITHOUT INTRAVENOUS CONTRAST, PANCREAS PROTOCOL HISTORY: Jaundice. Abnormal bile duct dilatation. elevated lfts, pancreatitis- pancreas protocol TECHNIQUE: Multiaxial CT images of the abdomen and pelvis were performed both before and after the intravenous administration of contrast to evaluate the pancreas. Oral contrast was also administered. COMPARISON STUDY: Abdominal ultrasound 06/28/2017. Abdomen and pelvis CT 11/07/2015. FINDINGS: Mild dependent changes seen within the lung bases. No suspicious lytic or blastic osseous lesions. No splenic masses. The adrenal glands are unremarkable. The gallbladder is mildly distended. There is again noted a 1.8 cm enhancing mass within the right kidney. This is stable to slightly increased in size compared to the studies dating back to 2013. Best seen on the delayed sequences there is a subtle 1.6 cm lesion within the periphery the right hepatic lobe on image 144. There may be an additional subtle slightly hypodense 1.2 cm lesion within the right hepatic lobe on image 188. The left kidney and adrenal glands are unremarkable. There is moderate intra and hepatic bile duct dilatation. There is abrupt cut off within the mid common bile duct. There is a subtle 2.1 cm hypoenhancing area within the pancreatic head at the level of the common bile duct narrowing. Therefore, this is consistent with a pancreatic mass. No retroperitoneal lymphadenopathy. Normal bladder, uterus, bilateral adnexa. No bowel wall thickening or obstruction. IMPRESSION: 1. Moderate intra and extra hepatic bile duct dilatation with an abrupt cut off at the mid common bile duct. At the location of the common bile duct narrowing there is a 2.1 cm hypoenhancing area at the pancreatic head consistent with a pancreatic mass. This is highly suspicious for pancreatic adenocarcinoma. 2. Stable to slight increase in size in the 1.8 cm enhancing lesion within the right kidney. This could represent a renal cell carcinoma. 3. There are 2 subtle lesions within the right hepatic lobe as described above. These were not present on the prior studies and are highly suspicious for metastatic disease. Electronically signed by: Jone Huitron M.D. 06/28/2017 11:05 AM Dictated Date/Time: 06/28/2017 10:47 AM
[2017-06-28] MEDS: LACTATED RINGER'S 1000ML 1,000 ML IV SCH ×3 (11:31→19:44)
--- NOTE | 2017-06-28 12:48 | History & Physical Bridge Note ---
H&P Re-Evaluation Bridge Note: I have examined the patient, reviewed the History & Physical and in the interval since the performance of the History & Physical I have noted the following changes of clinical significance: Full consult dictated Pt AAOx3 icteric Nl s1s2 Lungs CTA Abd soft NT/ND + BS - CCE ERCP with brushing No changes noted
[2017-06-28] MEDS: PIPERACILL/TAZOBAC IV 3.375 GM in DEXTROSE 5% 100ML 100 ML IV SCH (14:00)
[2017-06-28] MEDS: HEPARIN SOD 5000 UNIT/0.5 ML CARP SQ SCH ×2 (14:00→22:00)
--- NOTE | 2017-06-28 14:29 | GASTROINTESTINAL CONSULTATION ---
DATE OF CONSULTATION: 06/28/2017 CHIEF COMPLAINT: Gallstone pancreatitis, abnormal ultrasound, and abnormal liver tests. HISTORY OF PRESENT ILLNESS: Mrs. Guy is a 52-year-old white female, known to me, initially since yesterday at that time which she was seen in GI Clinic for an abnormal ultrasound and liver test. The patient was in her usual state of health until approximately 8 days ago or so when she began to notice increasing yellow appearance to her eyes and skin and some changes in her urine and stool color. She was actually training down in [place] for a half marathon and was seen at a local urgent clinic, where she was found to be jaundiced and was suspected of having viral hepatitis. It is unclear if she had any blood work done. The patient returned back to the [facility] where she lives and was seen in [facility] urgent clinic on Tuesday. An ultrasound at that time revealed markedly dilated intra and extrahepatic bile ducts along with an enlarged gallbladder filled with sludge. There was no evidence of acute cholecystitis. LFT showed an obstructive pattern, but there was no evidence of leukocytosis. She did not experience any fevers or chills during any of this time. Over the past 24-48 hours, she did experience a mild increase in abdominal pain, although this does not radiate to any place and was mostly in the right upper quadrant area. Plans were to have an outpatient ERCP this afternoon, As an afternoon case could not be added for the patient on Tuesday at the hospital. The patient was doing well overall, although approximately 10:00 p.m. through midnight, the patient noted an increase in abdominal discomfort and reports it as an 8/10 abdominal pain. She presented to the Emergency Room with there was evidence of elevated lipase around 25,000, mild increase in the LFTs that had previously elevated and an ultrasound that suggested a dilated gallbladder with sludge, some mild pericholecystic fluid and persistence of the dilated ductal system. I was contacted by the Emergency Room this morning at approximately 07:45 a.m. regarding the patient and plans for admission. PAST MEDICAL HISTORY: Includes a renal lesion that has been followed at [place], which has had a stable pattern. She had a CT scan in January 2017, which did not identify abnormalities in the liver, biliary system, pancreas ductal system or pancreas. The lesion in the right kidney was stable at that time. She does have a history of asthma, depressive disorder, hand laceration, surgeries for small bowel obstruction for which she underwent surgery [address] Iyer and this was as a result of prior gynecologic surgery with adhesion formation. These were taken down 1 year ago and the patient has actually done quite well without features of recurrent obstruction or abdominal pain. She has also a tubal ligation, endometrial ablation, renal cyst and ovarian cyst. SOCIAL HISTORY: The patient denies tobacco and only rarely uses alcoholic beverages. He is and employed at [employer]. ALLERGIES: TO STITCHES, but has no known drug allergies. HOME MEDICATIONS: Valtrex, but other than that she takes no other chronic medications either prescription or over the counter. FAMILY HISTORY: Noncontributory. There is no history of pancreatic cancer, liver disorders or gallstones. PHYSICAL EXAMINATION: VITAL SIGNS: Today on admission, the patient is afebrile at 36.9, blood pressure 156/83, heart rate 70, and respirations 20. GENERAL: The patient is awake, alert and oriented x3. She is 97% on room air. HEENT: Sclerae are anicteric. Conjunctiva is moist. Oral mucosa moist. NECK: There is no cervical or supraclavicular adenopathy. I do not appreciate thyromegaly. LUNGS: Clear to auscultation. There are no rales, rhonchi or wheezes on lung exam. ABDOMEN: Soft and flat. Tender mildly in the right upper quadrant and to a lesser extent in the right flank region. The patient does describe the pain wrapped around to the back on the right side, which was different than presentation yesterday. There is no evidence of ascites or shifting dullness. EXTREMITIES: Without clubbing, cyanosis or edema. RECTAL: Deferred. LABORATORY STUDIES: On admission this morning, white count 7.8, hemoglobin 14.0, MCV 91, and platelets 200,000. BUN and creatinine are 9 and 0.6, potassium 3.8, and sodium 137. The patient's LFTs are increased with now a total bilirubin of 9.8, which is up approximately 1 mg. AST of 306, ALT of 535, and alkaline phosphatase 496 with normal total protein and albumin. The lipase was elevated at 25,681. IMAGING STUDIES: On admission was a gallbladder study, which was described above and showed persistent intra and extrahepatic dilation without clear obstructing stone or mass identified. The pancreatic duct is 3 mm. Sludge was in the gallbladder and trace pericholecystic fluid was identified. Again, a renal lesion was identified in the right kidney and is chronic. After discussion with the ER attending, a CT scan was recommended along with antibiotics and the CT scan demonstrated features that are new compared to a prior CT scan in November 2015. Again, intra and extrahepatic bile duct dilation was noted to the level of mid common bile duct with a cutoff. Additionally, there is a common bile duct narrowing. There is a 2.1-cm hypoenhancing area at the pancreatic head consistent with a mass, which is suspicious for pancreatic adenocarcinoma. The renal lesion overall is stable to slight increase in size; however, 2 subtle right lesions within the right hepatic lobe are described. These were not seen previously. The one lesion is seen in the periphery of the right hepatic lobe and an additional possible subtle area within the right lobe of the liver. IMPRESSION: The patient is with symptoms of acute onset of jaundice without any meaningful weight loss over the past few months, although over the past 8 days, she did have an approximately 6-8 pound reduction of weight. She considers that some of her recent increase physical activity and dietary changes for a marathon training may have contributed to this and prior to this, she had actually reported a slight weight gain over the last many months. The early part of this syndrome was mostly painless, although 24-48 hours prior to admission today, she was experiencing some right upper quadrant pain. Differential diagnosis remains choledocholithiasis or sludge. There was evidence of sludge in the gallbladder. Acute cholecystitis is less likely with the absence of fever or leukocytosis, but may also be contributing to some of her discomfort. More concerning is the potential lesion in the head of the pancreas at 2.1 cm and smaller lesions in the periphery and central in the right lobe of the liver and these will need further assessment. For today, we will plan for ERCP to decompress the bile duct, extract any stones, and take fresh samples if necessary. Additionally, this may require stent placement. Surgery evaluation for gallbladder is prudent. A CA-19 and CEA levels would be also helpful. At some point, repeat imaging either with endoscopic ultrasound to interrogate the pancreas or a repeat cross-sectional imaging with attempts at CT guided biopsy of the peripheral right hepatic lobe lesions may be helpful to exclude metastatic disease. All questions answered. Consent was obtained for the patient the ERCP today after risks, benefits, and alternatives were discussed including worsening of pancreatitis, inability to accomplish drainage, possibility of stent placement, bleeding, infection, or perforation. She agreed to proceed. Would continue antibiotics. All questions answered. LORA
--- NOTE | 2017-06-28 15:39 | DIAGNOSTIC IMAGING REPORT ---
ERCP BILIARY DUCTAL HISTORY: 52 years-old Female ERCP new biliary ductal dilation with possible pancreatic head mass. COMPARISON: CT study of same day TECHNIQUE: Single frontal spot fluoroscopic image of the abdomen was obtained with ERCP. 325.3 seconds of fluoroscopy time was utilized. FINDINGS: Single image from ERCP demonstrates endoscope in the duodenum. No additional images were submitted. IMPRESSION: Fluoroscopic assistance as above. Please see procedural report for further details. The above report was generated using voice recognition software. It may contain grammatical, syntax or spelling errors. Electronically signed by: Matt Escalante M.D. 06/28/2017 3:38 PM Dictated Date/Time: 06/28/2017 3:36 PM
[2017-06-28] MEDS ORDERED: FENTANYL CITRATE INJ 50 MCG/1 ML 2 ML VIAL IV PRN (15:45)
[2017-06-28] MEDS ORDERED: ATROPINE SULFATE 0.1 MG/ML 5ML SYR IV PRN (15:45)
--- NOTE | 2017-06-28 16:11 | Anesthesiology Progress Note ---
Anesthesia Post Op Note Date & Time Jun 28, 2017 at 16:11 Vital Signs Pain Intensity: 0 Vital Signs Past 12 Hours Date Time Temp Pulse Resp B/P (MAP) Pulse Ox O2 Delivery O2 Flow Rate FiO2 06/28/17 16:05 36.9 49 17 136/82 100 Room Air 06/28/17 15:55 53 22 137/81 100 Room Air 06/28/17 15:45 52 21 142/83 100 Oxymask 10 06/28/17 15:35 53 21 142/83 100 Oxymask 10 06/28/17 15:29 36.7 64 20 145/88 100 Oxymask 10 06/28/17 10:30 Room Air 06/28/17 10:30 36.6 53 18 154/87 (109) 96 Room Air 06/28/17 10:03 53 20 118/84 96 Room Air 06/28/17 09:10 58 21 126/72 99 Room Air 06/28/17 09:08 99 Room Air 06/28/17 07:56 61 22 132/79 97 Room Air 06/28/17 06:57 67 23 148/95 99 Room Air 06/28/17 06:38 55 06/28/17 06:37 61 16 156/97 96 Room Air 06/28/17 06:03 36.9 70 20 156/83 97 Room Air Notes Mental Status: alert / awake / arousable, participated in evaluation Pt Amnestic to Procedure: Yes Nausea / Vomiting: adequately controlled Pain: adequately controlled Airway Patency, RR, SpO2: stable & adequate BP & HR: stable & adequate Hydration State: stable & adequate Anesthetic Complications: no major complications apparent
[2017-06-28 16:25] VITALS: BP 143/83; PULSE 55; TEMP 36.6; O2SAT 100
[2017-06-28 17:25] VITALS: BP 134/65; PULSE 57; TEMP 36.6; O2SAT 99
[2017-06-28] MEDS ORDERED: PANTOprazole INJ 80 MG in DEXTROSE 5% 100ML IV SCH (17:45)
--- NOTE | 2017-06-28 17:45 | GASTROENTEROLOGY PROGRESS NOTE ---
DATE: 06/28/2017 GASTROENTEROLOGY INPATIENT PROGRESS NOTE Addendum to earlier history and physical. SUBJECTIVE: I spoke with the patient and her following ERCP attempt. There are deeply ulcerated lesions may represent malignant involvement in the region of the ampulla that precluded proper identification of the ampulla. Several attempts were made to probe areas that may have represented an ampullary orifice; however, these were unsuccessful. There was also an ulcer in the duodenum in the postbulbar area which was deep, neither of these were bleeding, although the ulcerated lesion at the ampulla was friable. There is also a stenosis that occurs just proximal to the large ulcer in the periampullary region. Mucosal samples were taken of this. I did speak with the patient and her regarding these findings and that this may represent a malignancy of at the present time determine type. There is a pancreatic lesion and the pancreatic head of 2.1 cm and it is possible this represents pancreatic cancer. There is also concern that there are small lesions in the right lobe of the liver, one in the parenchyma and one near the periphery that may represent metastatic disease. The patient did have a colonoscopy at age 48 and therefore colon cancer is less likely. Malignancy of the biliary system may also be a culprit (cholangiocarcinoma). The presence of these deep ulcers also raises the possibility of Ariel-Martin syndrome and possible gastrinoma. The renal lesion has been stable in size and this is a less likely source for this, although this too remains a possibility. I made the following recommendations: I believe it would be prudent to transfer the patient to a referral center for several purposes, initially for a percutaneous drainage and decompression of the bile duct and possibly breast samples of the bile duct, if successful. 2. CT-guided biopsies of the suspected lesions in the liver would be helpful. At some point, endoscopic ultrasound if technically possible due to the stenosis may be reasonable to interrogate the pancreatic head and for any surrounding adenopathy. Will obtain gastrin level and await the mucosal biopsies. In addition, we will place the patient on a PPI drip. The patient does not use NSAIDs and therefore NSAID-induced peptic ulcer disease is less likely. The gastric mucosa had a normal appearance with this two with biopsy for H. pylori, although I think traditional peptic ulcer disease are less likely except for possibly hypersecretory state. I did speak with the interventional sales promotion representative and they would be happy to see the patient once transferred down at [place]. I will discuss this with Dr. Morocho so that a hospital transfer can be arranged at the earliest time. All questions answered for the patient and her . LORA
[2017-06-28] MEDS: PANTOprazole INJ 40 MG in DEXTROSE 5% 100ML IV SCH ×2 (18:20→22:35)
[2017-06-28 18:25] VITALS: BP 146/87; PULSE 59; TEMP 36.7; O2SAT 97
--- NOTE | 2017-06-28 19:41 | Discharge Instructions ---
Discharge Instructions Date of Service Jun 28, 2017. Admission Reason for Admission: acute pancreatitis Discharge Discharge Diagnosis / Problem: acute pancreatitis, obstructive jaundice, duodenal ulcers Discharge Goals Goal(s): Learn about illness, Diagnostic testing, Therapeutic intervention Activity Recommendations Activity Limitations: resume your previous activity . Current Hospital Diet Patient's current hospital diet: Discharge Diet Recommended Diet: N/A Procedures Procedures Performed: Attempted Endoscopic Retrograde Cholangiopancreatogram, Upper Endoscopy with Biopsy Pending Studies Studies pending at discharge: yes List of pending studies: CA 19-9 level gastrin level Medical Emergencies . Who to Call and When: Medical Emergencies: If at any time you feel your situation is an emergency, please call 911 immediately. . Non-Emergent Contact Non-Emergency issues call your: Tree Worker Call Non-Emergent contact if: temperature is above 100.5, your pain is not controlled . . "Provider Documentation" section prepared by Misha Walter. . VTE Core Measure Inpt VTE Proph given/why not?: Unfractionated heparin SAMEERA, TBacilioEClaude Martin, SCD 's
--- NOTE | 2017-06-28 21:11 | Discharge Summary ---
Discharge Summary Date of Service Jun 28, 2017. Discharge Summary Admission Date: Jun 28, 2017 at 08:53 Discharge Date: Jun 28, 2017 Discharge Disposition: Acute care facility ([facility] - accepting attending physician: Dr. Perla Noland) Principal Diagnosis: acute pancreatitis Problems/Secondary Diagnoses: 1. obstructive jaundice / CBD obstruction 2. concern of pancreatic head lesion 3. multiple duodenal ulcers - uncertain etiology 4. hepatic lesions concerning for possible metastatic disease 5. 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 asthma 7. depression Immunizations: Have You Had Influenza Vaccine: Unknown History of Tetanus Vaccine?: Unknown History of Pneumococcal: Unknown History of Hepatitis B Vaccine: Unknown Procedures: 1. RUQ ultrasound: FINDINGS: The imaged pancreas is unremarkable and the pancreatic duct measures within the upper limits of normal at 3 mm. The common bile duct is again dilated, 1.1 cm which appears unchanged from prior. Moderate intrahepatic biliary ductal dilation is re-demonstrated. No definite obstructing stone or mass is seen. The liver measures up to 21.8 cm in length. Distended sludge-filled gallbladder is again seen without definite gallbladder wall thickening. Gallbladder measures up to 13.3 cm in length. There is trace pericholecystic fluid noted. A positive sonographic Wild's sign was not reported. Complex indeterminate 2.4 cm lesion of the interpolar right kidney is again seen. This appears unchanged from prior. IMPRESSION: 1. Persistent moderate intrahepatic and extrahepatic biliary ductal dilation without definite obstructing stone or mass identified. The pancreatic duct measures in the upper limits of normal at 3 mm. Again, correlation with ERCP is recommended. 2. Sludge filled distended gallbladder is noted with trace pericholecystic fluid. Correlate clinically to exclude developing acute cholecystitis. 3. Complex indeterminate 2.4 cm right kidney lesion redemonstrated. 2. CT abdomen/pelvis: IMPRESSION: 1. Moderate intra and extra hepatic bile duct dilatation with an abrupt cut off at the mid common bile duct. At the location of the common bile duct narrowing there is a 2.1 cm hypoenhancing area at the pancreatic head consistent with a pancreatic mass. This is highly suspicious for pancreatic adenocarcinoma. 2. Stable to slight increase in size in the 1.8 cm enhancing lesion within the right kidney. This could represent a renal cell carcinoma. 3. There are 2 subtle lesions within the right hepatic lobe as described above. These were not present on the prior studies and are highly suspicious for metastatic disease. 3. ERCP - Higinio Tavera MD - see HOSPITAL COURSE section for procedure details Consultations: gastroenterology - Higinio Tavera MD Discharge Exam Physical Exam: General Appearance: WD/WN, no apparent distress Eyes: + abnormal sclerae exam (icterus) ENT: + pertinent finding (MM dry, mucosal icterus) Neck: no JVD Respiratory/Chest: lungs clear, no respiratory distress, no accessory muscle use Cardiovascular: regular rate, rhythm, no gallop, no murmur, normal peripheral pulses Abdomen / GI: normal bowel sounds, non tender, soft, no organomegaly Extremities: no pedal edema Neurologic/Psychiatric: alert, oriented x 3 Skin: + jaundice (to the upper chest ) Hospital Course HISTORY OF PRESENT ILLNESS: 52yo female with history of recurrent SBO, asthma, depression, and right-sided renal mass found to be renal glomerulosclerosis (followed by [facility]) who presented with 1 week of feeling ill, jaundice, and then abdominal pain. She reported that about one week ago while traveling in [place] she noted the jaundice. She was seen by a local urgent care in [place] and they felt she had viral hepatitis. In addition to the jaundice she had nausea and emesis. She subsequently traveled back to [place] where she had a gradual decline in appetite over the last week. Her abdominal pain worsened over the last 3-4 days and she experienced ongoing nausea with emesis. She denied fevers, chills or sweats. Patient denied any significant intake of alcohol other than once monthly. She was seen again at a local urgent care on where she underwent RUQ ultrasound showing gall bladder sludge but no evidence of acute cholecystitis. Finally, her abdominal pain became quite severe overnight and thus she presented to the [facility] ER overnight for evaluation. [place] [address], total bilirubin was 9.8, AST 306, ALT 535, Alk phos 496. CBC was normal. A repeat RUQ ultrasound showed CBD dilation to 1.1 cm, gallbladder sludge and trace pericholecystic fluid. A right-sided renal lesion measuring 2.4 cm was also seen corresponding to the previous renal mass that has been followed at [facility]. She was admitted with a working diagnosis of acute pancreatitis, perhaps due to gallstones. Over the last few months the patient had been feeling well. 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 HOSPITAL COURSE: While awaiting admission in the ER the patient underwent a contrast CT of the abdomen and pelvis showing a suspected pancreatic head lesion, obstruction of the common bile duct, potentially two lesions in the liver, as well as the right -sided renal lesion. She was started on lactated ringers, broad-spectrum IV antibiotic therapy, kept NPO, given pain medication, and Dr. Higinio Tavera from [facility] was consulted. He performed ERCP which demonstrated multiple , deep ulcers surrounding the ampulla. There was also an ulcer in the duodenum in the postbulbar area. None of the ulcers were bleeding. The ulcers precluded identification of the ampullary orifice and thus cannulation of the ampulla was not achieved. There was also a stenosis that occurred just proximal to one of the large ulcers in the periampullary region. Biopsy was taken of one of the ulcers. Following her ERCP she was initiated on a protonix drip. The significance of the ulcers seen on ERCP was uncertain. But, in light of the CT abd/pelvis findings, there was considerable concern that her constellation of findings represented some form of malignancy, whether it was of pancreatic or biliary origin or even a gastric secreting tumor. CEA was checked and found to be normal. Gastrin level and CA 19-9 levels were sent and were pending at time of discharge from [facility]. In light of the complexity of her radiographic and ERCP findings it was felt that she would be best served at a tertiary care center. Due to her prior relationship with [facility] they were contacted and Dr. Perla Noland of the hospitalist service graciously accepted the patient. Prior to transfer the patient was made aware of all radiographic and ERCP findings. She was agreeable to transfer to [facility]. All vital signs remained stable during her brief stay at [facility]. I would like to thank Dr. Perla Noland and the medical team at [facility] for accepting this pleasant patient in transfer for ongoing care. 06/28/17 06:25 Red Blood Count 4.26, Mean Corpuscular Volume 91.3, Mean Corpuscular Hemoglobin 32.9, Mean Corpuscular Hemoglobin Concent 36.0, Mean Platelet Volume 12.2, Neutrophils (%) (Auto) 58.1, Lymphocytes (%) (Auto) 30.0, Monocytes (%) (Auto) 9.8, Eosinophils (%) (Auto) 1.4, Basophils (%) (Auto) 0.6, Neutrophils # (Auto) 4.55, Lymphocytes # (Auto) 2.35, Monocytes # (Auto) 0.77, Eosinophils # (Auto) 0.11, Basophils # (Auto) 0.05 06/28/17 06:25 Test 06/28/17 06:25 06/28/17 09:03 06/28/17 18:11 White Blood Count 7.84 K/uL (4.8-10.8) Red Blood Count 4.26 M/uL (4.2-5.4) Hemoglobin 14.0 g/dL (12.0-16.0) Hematocrit 38.9 % (37-47) Mean Corpuscular Volume 91.3 fL (80-100) Mean Corpuscular Hemoglobin 32.9 pg (25-34) Mean Corpuscular Hemoglobin Concent 36.0 g/dl (32-36) Platelet Count 200 K/uL (130-400) Mean Platelet Volume 12.2 fL (7.4-10.4) Neutrophils (%) (Auto) 58.1 % Lymphocytes (%) (Auto) 30.0 % Monocytes (%) (Auto) 9.8 % Eosinophils (%) (Auto) 1.4 % Basophils (%) (Auto) 0.6 % Neutrophils # (Auto) 4.55 K/uL (1.4-6.5) Lymphocytes # (Auto) 2.35 K/uL (1.2-3.4) Monocytes # (Auto) 0.77 K/uL (0.11-0.59) Eosinophils # (Auto) 0.11 K/uL (0-0.5) Basophils # (Auto) 0.05 K/uL (0-0.2) RDW Standard Deviation 43.3 fL (36.4-46.3) RDW Coefficient of Variation 13.0 % (11.5-14.5) Immature Granulocyte % (Auto) 0.1 % Immature Granulocyte # (Auto) 0.01 K/uL (0.00-0.02) Anion Gap 11.0 mmol/L (3-11) Est Creatinine Clear Calc Drug Dose 102.4 ml/min Estimated GFR () 119.8 Estimated GFR (Non- 103.3 BUN/Creatinine Ratio 14.6 (10-20) Calcium Level 9.8 mg/dl (8.5-10.1) Total Bilirubin 9.8 mg/dl (0.2-1) Aspartate Amino Transf (AST/SGOT) 306 U/L (15-37) Alanine Aminotransferase (ALT/SGPT) 535 U/L (12-78) Alkaline Phosphatase 496 U/L (45-117) Total Protein 7.8 gm/dl (6.4-8.2) Albumin 3.5 gm/dl (3.4-5.0) Globulin 4.3 gm/dl (2.5-4.0) Albumin/Globulin Ratio 0.8 (0.9-2) Lipase 36672 U/L (73-393) Urine Color DK YELLOW Urine Appearance CLOUDY (CLEAR) Urine pH 7.0 (4.5-7.5) Urine Specific [place] 1.019 (1.000-1.030) Urine Protein NEG (NEG) Urine Glucose (UA) NEG (NEG) Urine Ketones 2+ (NEG) Urine Occult Blood NEG (NEG) Urine Nitrite NEG (NEG) Urine Bilirubin 3+ (NEG) Urine Urobilinogen NEG (NEG) Urine Leukocyte Esterase TRACE (NEG) Urine WBC (Auto) 0 /hpf (0-5) Urine RBC (Auto) 0-4 /hpf (0-4) Urine Hyaline Casts (Auto) 0 /lpf (0-5) Urine Epithelial Cells (Auto) 0-5 /lpf (0-5) Urine Bacteria (Auto) NEG (NEG) Carcinoembryonic Antigen < 0.5 ng/ml (0-2.5) Current Inpatient Medications Medications (Trade) Dose Ordered Sig/Poppy Route Start Time Stop Time Status Last Admin Dose Admin Heparin Sodium (Porcine) (Heparin Sq 5000 Unit/0.5ml) 5,000 unit Q8 SQ 06/28/17 14:00 07/28/17 13:59 Acetaminophen (Tylenol Tab) 650 mg Q4H PRN PO 06/28/17 08:45 07/28/17 08:44 Magnesium Hydroxide (Milk Of Magnesia Susp) 30 ml Q6H PRN PO 06/28/17 08:45 07/28/17 08:44 Polyethylene (Miralax Powder Packet) 17 gm DAILY PRN PO 06/28/17 08:45 07/28/17 08:44 Ondansetron HCl (Zofran Inj) 4 mg Q6H PRN IV 06/28/17 08:45 07/28/17 08:44 Lactated Ringer's 1,000 ml @ 200 mls/hr Q5H IV 06/28/17 08:44 06/29/17 08:43 06/28/17 19:44 200 MLS/HR Piperacillin Sod/ Tazobactam Sod 3.375 gm/Dextrose 115 ml @ 28.75 mls/ hr Q8H IV 06/28/17 14:00 07/08/17 11:29 Hydromorphone HCl (Dilaudid Inj) 1 mg Q3H PRN IV 06/28/17 09:00 07/12/17 08:59 Ioversol (Optiray 320) 125 ml UD PRN IV 06/28/17 09:30 07/02/17 09:29 Ondansetron HCl (Zofran Inj) 4 mg ONE PRN IV 06/28/17 15:45 06/28/17 20:45 Atropine Sulfate (Atropine Sulfate 0.1MG/Ml Inj) 0.5 mg Q1M PRN IV 06/28/17 15:45 06/28/17 20:45 Fentanyl Citrate (Fentanyl Inj) 25 mcg Q5M PRN IV 06/28/17 15:45 06/28/17 20:45 Pantoprazole Sodium 40 mg/ Dextrose 100 ml @ 20 mls/hr Q5H IV 06/28/17 18:00 07/28/17 17:59 06/28/17 18:20 20 MLS/HR Total Time Spent: Greater than 30 minutes This includes examination of the patient, discharge planning, medication reconciliation, and communication with other providers. Discharge Instructions Please refer to the electronic Patient Visit Report (Discharge Instructions) for additional information. Follow-Up to be arranged after her admission at [facility] Additional Copies To Higinio Tavera M.D.; Carla Carolina C.R.NIssac. ; [facility]
[2017-06-28 23:04] VITALS: BP 130/76; PULSE 49; TEMP 36.9; O2SAT 96
[2017-06-29] MEDS: LACTATED RINGER'S 1000ML 1,000 ML IV SCH ×2 (00:16→04:01)
[2017-06-29] MEDS: PIPERACILL/TAZOBAC IV 3.375 GM in DEXTROSE 5% 100ML 100 ML IV SCH ×3 (00:16→13:50)
[2017-06-29] MEDS: HYDROmorphone INJ 1 MG/ML SYR IV PRN ×4 (01:05→11:45)
[2017-06-29] MEDS: PANTOprazole INJ 40 MG in DEXTROSE 5% 100ML IV SCH ×3 (04:01→13:06)
[2017-06-29] MEDS: HEPARIN SOD 5000 UNIT/0.5 ML CARP SQ SCH ×2 (05:53→13:50)
[2017-06-29 06:00] LABS: BASO % 0.4 %; BASO ABS # 0.03 K/uL (0-0.2); COMPLETE YES; EOS % 1.3 %; HEMATOCRIT 35.9 % (37-47); IG% 0.3 %; LYMPH ABS # 2.09 K/uL (1.2-3.4); MEAN CORPUSCULAR HEMOGLOBIN 31.4 pg (25-34); MEAN CORPUSCULAR HGB CONC 33.4 g/dl (32-36); MEAN PLATELET VOLUME 12.1 fL (7.4-10.4); MONO % 10.2 %; NEUT % 56.8 %; PLATELET COUNT 199 K/uL (130-400); RED BLOOD COUNT 3.82 M/uL (4.2-5.4); WHITE BLOOD COUNT 6.75 K/uL (4.8-10.8)
[2017-06-29 06:55] VITALS: BP 134/85; PULSE 53; TEMP 37; O2SAT 98
[2017-06-29 07:14] LABS: ALB/GLOB RATIO 0.8 (0.9-2); CREATININE 0.64 mg/dl (0.60-1.20); POTASSIUM 3.6 mmol/L (3.5-5.1)
[2017-06-29 07:20] VITALS: O2SAT 98
[2017-06-29] MEDS ORDERED: NURSING VERBAL MED ORDER ONE (10:30)
--- NOTE | 2017-06-29 10:58 | Anesthesiology Progress Note ---
Anesthesia Post Op Note Date & Time Jun 29, 2017 at 10:57 Vital Signs Pain Intensity: 4.0 Vital Signs Past 12 Hours Date Time Temp Pulse Resp B/P (MAP) Pulse Ox O2 Delivery O2 Flow Rate FiO2 06/29/17 07:20 98 Room Air 06/29/17 06:55 37.0 53 18 134/85 (101) 98 Room Air 06/28/17 23:38 Room Air 06/28/17 23:04 36.9 49 16 130/76 (94) 96 Room Air Notes Mental Status: alert / awake / arousable Pt Amnestic to Procedure: Yes Nausea / Vomiting: adequately controlled Pain: adequately controlled Airway Patency, RR, SpO2: stable & adequate BP & HR: stable & adequate Hydration State: stable & adequate No issues with anesthesia care.
[2017-06-29] MEDS ORDERED: LACTATED RINGER'S 1000ML 1,000 ML IV SCH (11:00)
[2017-06-29 12:55] VITALS: BP 134/85; PULSE 53; TEMP 37; O2SAT 98
== END 2017-06-29 13:45 | disposition short-term general hospital (02) | DRG 438 ==
LOC: C.EDB 06:01 → C.MSW 08:53 → ENRESERV 09:47
PROVIDERS: ADMIT Internal Medicine; ATTEND Internal Medicine
PROC: BF11YZZ Fluoroscopy of Biliary and Pancreatic Ducts using Other Contrast (ICD-10-PCS; principal; 2017-06-28 13:30)
DX: K85.90 Acute pancreatitis without necrosis or infection, unspecified (principal); K83.1 Obstruction of bile duct; J45.909 Unspecified asthma, uncomplicated; F32.9 Major depressive disorder, single episode, unspecified; R79.89 Other specified abnormal findings of blood chemistry; K81.9 Cholecystitis, unspecified; R00.1 Bradycardia, unspecified; K76.9 Liver disease, unspecified; Z98.51 Tubal ligation status

== ENCOUNTER 2017-08-28 20:42 | Observation (INO) | payer BC ==
[~2017-08-28] VITALS: Ht 160 cm; Wt 67.0 kg
[2017-08-28] MEDS ORDERED: ONDANSETRON INJ 2 MG/ML 2 ML VIAL IV STA (21:15)
[2017-08-28] MEDS ORDERED: SODIUM CHLORIDE 0.9% 1000ML 1,000 ML IV STA (21:15)
--- NOTE | 2017-08-28 21:33 | EMERGENCY ROOM VISIT NOTE ---
History Report prepared by Duc: Sierra De La Rosa Under the Supervision of: Dr. Nasir Carmona M.D. First contact with patient: 21:03 Chief Complaint: FEVER Stated Complaint: CHEMO THEP PATIENT, FEVER History of Present Illness The patient is a 52 year old female who presents to the Emergency Room with complaints of an episode of fever of 100.6 degrees Fahrenheit occurring just prior to arrival. The patient stage 4 pancreatic cancer which is advanced to her liver and lymph nodes. The patient had her first round of chemotherapy in July. The patient was supposed to have another round of chemotherapy in the beginning of August but was unable too because they found a boil on her leg which was positive for MRSA. The patient was treated August 12- in [place]. The patient has a biliary drain. Per , the dressing on the drain are normally yellow. He states today the dressings had black drainage which he has never seen before. The patient notes vomiting about once a day since starting her chemotherapy treatments. Presently, the patient is nauseous. The patient was referred to the ED by Dr. Ramos for neutropenia concerns. The patient's chemotherapy medications are etopaside and cisplatin. Source of History: patient Onset: just prior to arrival Position: other (global) Symptom Intensity: 100.6 Quality: other (fever) Timing: other (episode) Associated Symptoms: + nausea Review of Systems See HPI for pertinent positives and negatives. A total of ten systems were reviewed and were otherwise negative. Past Medical & Surgical Medical Problems: (1) Abdominal pain (2) Acute gallstone pancreatitis (3) Asthma, Unspecified (4) Asthma, Unspecified (5) Depressive Disorder Nec (6) Fever (7) Hand laceration (8) Hemoperitoneum (9) Ileus (10) Ileus (11) Ovarian cyst (12) Pancreatic cancer (13) Renal cyst (14) Small bowel obstruction (15) Small bowel obstruction (16) Syncope Surgical Problems: (1) History of appendectomy (2) S/P tubal ligation (3) Status post endometrial ablation Family History Patient reports no known family medical history. Social History Smoking Status: Former Smoker Alcohol Use: occasionally Drug Use: none Marital Status: Housing Status: lives with family Occupation Status: employed Current/Historical Medications Scheduled Dexamethasone (Decadron), 4 MG PO BID Oxycodone HCl (Oxycodone HCl), 5 MG PO Q6 Oxycodone Hcl (Oxycodone Hcl Er), 10 MG PO Q12 Pancrelipase (Lipase-Protease- (Creon), 1 CAP PO AC Pantoprazole (Pantoprazole Sodium), 40 MG PO BID Polyethylene (Polyethylene Glycol 3350), 17 GM PO DAILY Sennosides-Docusate Sodium (Ra Senna Plus 8.6-50 mg), 1 TAB PO DAILY Simethicone (Gas Relief), 180 MG PO PRN UD Valacyclovir (Valtrex), 500 MG PO DAILY Scheduled PRN Lorazepam (Lorazepam), 0.5 MG PO TID PRN for Anxiety Ondansetron (Ondansetron HCl), 8 MG PO Q8 PRN for Nausea or Vomiting Prochlorperazine Maleate (Prochlorperazine Maleate), 10 MG PO Q6 PRN for Nausea or Vomiting Allergies Coded Allergies: No Known Allergies (Unverified , 06/28/17) Physical Exam Vital Signs Date Time Temp Pulse Resp B/P (MAP) Pulse Ox O2 Delivery O2 Flow Rate FiO2 08/29/17 00:05 69 20 122/77 98 Room Air 08/28/17 22:50 74 20 114/74 96 Room Air 08/28/17 22:10 65 20 100/53 96 Room Air 08/28/17 21:52 78 08/28/17 20:44 37.2 77 18 126/86 98 Room Air Physical Exam GENERAL: Awake, alert, uncomfortable, chronically ill-appearing, in no distress HENT: Normocephalic, atraumatic. Oropharynx unremarkable. Dry cracked MM. EYES: Normal conjunctiva. Sclera non-icteric. NECK: Supple. No nuchal rigidity. FROM. No JVD. RESPIRATORY: Clear to auscultation. CARDIAC: Regular rate, normal rhythm. Extremities warm and well perfused. Pulses equal. ABDOMEN:Right biliary drain site, clean and intact, mild epigastric discomfort with no peritoneal signs. Soft, non-distended. No rebound or guarding. No masses. RECTAL: Deferred. MUSCULOSKELETAL: Chest examination reveals no tenderness. The back is symmetrical on inspection without obvious abnormality. There is no CVA tenderness to palpation. No joint edema. LOWER EXTREMITIES: Calves are equal size bilaterally and non-tender. No edema. No discoloration. NEURO: Normal sensorium. No sensory or motor deficits noted. SKIN: No rash or jaundice noted. Medical Decision & Procedures ER Provider Diagnostic Interpretation: Radiology results as stated below per my review and radiologist interpretation: CHEST ONE VIEW PORTABLE FINDINGS: The lungs are clear. Cardiac silhouette is normal in size. No pleural effusions. No pneumothorax. IMPRESSION: No acute process. Electronically signed by: Jone Huitron M.D. STATRAD read: Preliminary Findings Only See Final Report For Complete Findings CT ABDOMEN & PELVIS With Contrast: Comparison 06/28/17 No infiltrate at the lung bases. Atelectasis and tiny nodular opacities, example right lower lobe. These not appear significantly changed. Interval placement of biliary stent. Pneumobilia nonspecific given stent placement. Decreasing biliary dilatation compared to the prior. Pancreatic mass again noted. Allowing for differences in study, grossly stable in appearance compared to the prior. Liver lesions seen on the previous again identified. Perhaps slightly increased in size though apparent increase may at least be in part due to technical differences between studies. Indeterminate right renal lesion appears similar in size to the prior examination. No bowel obstruction, evidence for acute pancreatitis or other acute process is identified. Radiologist: Dion Solano M.D. Study ready at 23:19 and initial results transmitted at 23:47 Laboratory Results 08/28/17 21:30 Red Blood Count 3.01, Mean Corpuscular Volume 90.7, Mean Corpuscular Hemoglobin 30.9, Mean Corpuscular Hemoglobin Concent 34.1, Mean Platelet Volume 12.0, Neutrophils (%) (Auto) 74.6, Lymphocytes (%) (Auto) 19.5, Monocytes (%) (Auto) 1.4, Eosinophils (%) (Auto) 2.7, Basophils (%) (Auto) 0.7, Neutrophils # (Auto) 7.60, Lymphocytes # (Auto) 1.99, Monocytes # (Auto) 0.14, Eosinophils # (Auto) 0.27, Basophils # (Auto) 0.07 08/28/17 21:30 Test 08/28/17 21:30 White Blood Count 10.18 K/uL (4.8-10.8) Red Blood Count 3.01 M/uL (4.2-5.4) Hemoglobin 9.3 g/dL (12.0-16.0) Hematocrit 27.3 % (37-47) Mean Corpuscular Volume 90.7 fL (80-100) Mean Corpuscular Hemoglobin 30.9 pg (25-34) Mean Corpuscular Hemoglobin Concent 34.1 g/dl (32-36) Platelet Count 199 K/uL (130-400) Mean Platelet Volume 12.0 fL (7.4-10.4) Neutrophils (%) (Auto) 74.6 % Lymphocytes (%) (Auto) 19.5 % Monocytes (%) (Auto) 1.4 % Eosinophils (%) (Auto) 2.7 % Basophils (%) (Auto) 0.7 % Neutrophils # (Auto) 7.60 K/uL (1.4-6.5) Lymphocytes # (Auto) 1.99 K/uL (1.2-3.4) Monocytes # (Auto) 0.14 K/uL (0.11-0.59) Eosinophils # (Auto) 0.27 K/uL (0-0.5) Basophils # (Auto) 0.07 K/uL (0-0.2) RDW Standard Deviation 42.4 fL (36.4-46.3) RDW Coefficient of Variation 12.8 % (11.5-14.5) Immature Granulocyte % (Auto) 1.1 % Immature Granulocyte # (Auto) 0.11 K/uL (0.00-0.02) Anion Gap 9.0 mmol/L (3-11) Est Creatinine Clear Calc Drug Dose 60.1 ml/min Estimated GFR () 75.8 Estimated GFR (Non- 65.4 BUN/Creatinine Ratio 19.9 (10-20) Lactic Acid Level 1.4 mmol/L (0.4-2.0) Calcium Level 8.8 mg/dl (8.5-10.1) Total Bilirubin 1.0 mg/dl (0.2-1) Direct Bilirubin mg/dl (0-0.2) Aspartate Amino Transf (AST/SGOT) 175 U/L (15-37) Alanine Aminotransferase (ALT/SGPT) 253 U/L (12-78) Alkaline Phosphatase 848 U/L (45-117) Total Protein 7.4 gm/dl (6.4-8.2) Albumin 2.9 gm/dl (3.4-5.0) Chemistry Specimen Hemolysis Laboratory results reviewed by me Medications Administered Medications (Trade) Dose Ordered Sig/Poppy Route Start Time Stop Time Status Last Admin Dose Admin Sodium Chloride 1,000 ml @ 999 mls/hr Q1H1M STAT IV 08/28/17 21:15 08/28/17 22:15 DC 08/28/17 21:37 999 MLS/HR Ondansetron HCl (Zofran Inj) 4 mg NOW STAT IV 08/28/17 21:15 08/28/17 21:20 DC 08/28/17 21:37 4 MG Fentanyl Citrate (Fentanyl Inj) 50 mcg NOW STAT IV 08/28/17 21:59 08/28/17 22:00 DC 08/28/17 22:05 50 MCG Piperacillin Sod/ Tazobactam Sod (Zosyn Iv) 4.5 gm NOW STAT IV 08/29/17 00:02 08/29/17 00:05 DC 08/29/17 00:51 4.5 GM Sodium Chloride 1,000 ml @ 999 mls/hr Q1H1M STAT IV 08/29/17 00:06 08/29/17 01:06 DC 08/29/17 00:53 999 MLS/HR Vancomycin HCl 1250 mg/Sodium Chloride 275 ml @ 125 mls/hr NOW STAT IV 08/29/17 00:21 08/29/17 02:32 DC 08/29/17 00:53 125 MLS/HR ECG Indication: other (fever) Rate (beats per minute): 75 Rhythm: normal sinus Findings: no acute ischemic change, other (Normal axis, LVH) ED Course 2113: The patient was evaluated in room B12B. A complete history and physical exam was performed. Medical Decision I reviewed the patient's past medical history, medications, and the nursing notes as described above. Differential Diagnoses: Pneumonia, bronchitis, UTI, sepsis, intraabdominal infection, worsening malignancy. The patient is a 52-year-old woman with a past medical history of actively treated stage IV pancreatic cancer she is status post biliary drain for obstructed CBD was asked emergency department with worsening fever and malaise since yesterday with a fever of 100.6 at home per history of present illness. The patient appears uncomfortable and nauseated and did vomit. Here she is afebrile with stable vital signs. On exam the patient is fatigued, biliary drain site is clean dry and intact. WBC within normal limits and no evidence of neutropenia. Chest x-ray negative for pneumonia. CT scan of the patient's abdomen pelvis appears stable to prior. While reassuring workup, given the patient did have an objective fever at home, in the setting of her chemotherapy will admit the patient for broad-spectrum antibiotics. Given Vanc/Zosyn. Case was discussed with admitting resident who will admit the patient for the [facility] hospitalist for further management. Medication Reconcilliation Current Medication List: was personally reviewed by me Impression Primary Impression: Fever of unknown origin Additional Impression: Pancreatic cancer Critical Care I have personally spent greater than 35 minutes of critical care time in the direct management of this patient. This includes bedside care, interpretation of diagnostic studies, and testing, discussion with consultants, patient, and family members, and other required patient management activities. This 35 minutes is in excess of all separately billable procedures. Scribe Attestation The scribe's documentation has been prepared under my direction and personally reviewed by me in its entirety. I confirm that the note above accurately reflects all work, treatment, procedures, and medical decision making performed by me. Departure Information Referrals Carla Carolina C.R.N.P. (PCP) Patient Instructions My [facility] Problem Qualifiers
[2017-08-28] MEDS ORDERED: OPTIRAY 320 IV PRN (21:45)
[2017-08-28 21:49] LABS: BASO % 0.7 %; BASO ABS # 0.07 K/uL (0-0.2); COMPLETE YES; EOS % 2.7 %; HEMATOCRIT 27.3 % (37-47); IG% 1.1 %; LYMPH % 19.5 %; LYMPH ABS # 1.99 K/uL (1.2-3.4); MEAN CELL VOLUME 90.7 fL (80-100); MEAN CORPUSCULAR HEMOGLOBIN 30.9 pg (25-34); MEAN CORPUSCULAR HGB CONC 34.1 g/dl (32-36); MONO % 1.4 %; NEUT % 74.6 %; PLATELET COUNT 199 K/uL (130-400); RED BLOOD COUNT 3.01 M/uL (4.2-5.4); WHITE BLOOD COUNT 10.18 K/uL (4.8-10.8)
[2017-08-28] MEDS ORDERED: FENTANYL CITRATE INJ 50 MCG/1 ML 2 ML VIAL IV STA (21:59)
--- NOTE | 2017-08-28 22:02 | DIAGNOSTIC IMAGING REPORT ---
CHEST ONE VIEW PORTABLE HISTORY: Evaluate Fever/Sepsis COMPARISON: Chest 11/29/2015. FINDINGS: The lungs are clear. Cardiac silhouette is normal in size. No pleural effusions. No pneumothorax. IMPRESSION: No acute process. Electronically signed by: Jone Huitron M.D. 08/28/2017 10:00 PM Dictated Date/Time: 08/28/2017 9:58 PM
[2017-08-28 22:22] LABS: ALKALINE PHOSPHATASE 848 U/L (45-117); ALT/SGPT 253 U/L (12-78); AST/SGOT 175 U/L (15-37); BLOOD UREA NITROGEN 20 mg/dl (7-18); BUN/CREATININE RATIO 19.9 (10-20); CALCIUM 8.8 mg/dl (8.5-10.1); CARBON DIOXIDE 30 mmol/L (21-32); CHLORIDE 93 mmol/L (98-107); CREATININE 0.98 mg/dl (0.60-1.20); GLUCOSE 108 mg/dl (70-99); POTASSIUM 3.3 mmol/L (3.5-5.1); SODIUM 132 mmol/L (136-145)
[2017-08-28] MEDS ORDERED: SIME1CAP9 PO (22:35)
[2017-08-28] MEDS ORDERED: MRLP527 PO (22:35)
[2017-08-28] MEDS ORDERED: OXYC-609 PO (22:35)
[2017-08-28] MEDS ORDERED: OXYC-292 PO (22:35)
[2017-08-28] MEDS ORDERED: CMP/10 PO (22:35)
[2017-08-28] MEDS ORDERED: SENN1TAB91 PO (22:35)
[2017-08-28] MEDS ORDERED: DXM/4 PO (22:35)
[2017-08-28] MEDS ORDERED: PANT40TA2 PO (22:35)
[2017-08-28] MEDS ORDERED: PANC1CAP PO (22:35)
[2017-08-28] MEDS ORDERED: ATV5X PO (22:35)
[2017-08-28] MEDS ORDERED: ONDA-63 PO (22:35)
[2017-08-29] VITALS (8 sets, daily range): BP systolic 111–152; BP diastolic 76–88; PULSE 57–69; TEMP 36.5–37.1; O2SAT 96–100; Ht 160 cm; Wt 67.0 kg
[2017-08-29] MEDS ORDERED: VANCOMYCIN INJ 1,250 MG in SODIUM CHLORIDE 0.9% 500ML 500 ML IV STA (00:02)
[2017-08-29] MEDS ORDERED: PIPERACILLIN/TAZOBACTAM 4.5 GM/100ML D5W IV STA (00:02)
[2017-08-29] MEDS ORDERED: SODIUM CHLORIDE 0.9% 1000ML 1,000 ML IV STA (00:06)
[2017-08-29] MEDS ORDERED: VANCOMYCIN INJ 1,250 MG in SODIUM CHLORIDE 0.9% 250ML 250 ML IV STA (00:21)
[2017-08-29] MEDS ORDERED: MAGNESIUM HYDROXIDE SUSP 30 ML UDC PO PRN (01:00)
[2017-08-29] MEDS ORDERED: ALUMINUM/MAGNESIUM/SIMETH (MAALOX MAX) 30 ML UDC PO PRN (01:00)
[2017-08-29] MEDS ORDERED: ACETAMINOPHEN 325 MG TAB PO PRN (01:00)
[2017-08-29] MEDS ORDERED: OXYCODONE HCL IR 5 MG TAB (IMMEDIATE RELEASE) PO PRN (01:00)
[2017-08-29] MEDS ORDERED: ONDANSETRON 8 MG TAB PO PRN (01:00)
[2017-08-29] MEDS ORDERED: POLYETHYLENE (MIRALAX) 17 GM PACK PO PRN (01:00)
[2017-08-29] MEDS ORDERED: IV FLUIDS COMPLETED PRN (01:15)
[2017-08-29 01:39] LABS: URINE APPEARANCE CLEAR (CLEAR); URINE BILIRUBIN NEG (NEG); URINE COLOR YELLOW; URINE NITRITE NEG (NEG); URINE SPECIFIC GRAVITY 1.024 (1.000-1.030); UROBILINOGEN NEG (NEG); ZZUR CULT IF INDIC CLEAN CATCH NO
[2017-08-29] MEDS ORDERED: VANCOMYCIN CONSULT ACTIVE PRN (01:45)
[2017-08-29] MEDS ORDERED: PIPERACILL/TAZOBAC CONSULT ACTIVE PRN (01:45)
[2017-08-29] MEDS ORDERED: SIMETHICONE 80 MG CHEW PO PRN (01:45)
[2017-08-29 01:49] LABS: MANUAL MICROSCOPIC REQUIRED? NO; REVIEW REQ? NO
--- NOTE | 2017-08-29 02:03 | History and Physical ---
History & Physical Date of Service Aug 29, 2017. History & Physical Please see dictated H&P for full report HISTORY: 52 YO female with stage IV Pancreatic Ca, s/p biliary drain placement, hx MRSA abscess, who presents to ER with 1 day of fevers and 4 days of inability to take PO. Notes she had 2nd cycle chemotherapy on 08/24. notes dark tinge to biliary drainage site today, which is normally clear yellow. Call on-call Oncologist who advised coming to ER today with concerns for possible Neutropenia. Recent admission to [facility] from 08/12-08/25 for MRSA cellulitis on right thigh. Had biliary drain replaced at that time. Completed course of Vanco/Zosyn there. PHYSICAL EXAM: VSS, afebrile so far during hospitalization No erythema or purulence from biliary drain site Well healing site of previous MRSA abscess. No drainage, no edema or tenderness to palpation. LABS/STUDIES: - WBC 10, Hb 9 (baseline) Item Value Date Time Sodium Level 132 mmol/L L 08/28/172129 Potassium Level 3.3 mmol/L L 08/28/172129 Aspartate Amino Transf (AST/SGOT) 175 U/L H 08/28/172129 Alanine Aminotransferase (ALT/SGPT) 253 U/L H 08/28/172129 Alkaline Phosphatase 848 U/L H 08/28/172129 Total Bilirubin 1.0 mg/dl 08/28/172129 Blood Urea Nitrogen 20 mg/dl H 08/28/172129 Creatinine 0.98 mg/dl 08/28/172129 Liver enzymes at [facility] on 08/25 were AST 37, ALT 51, AlkPhos 477 - UA pending - Blood Cx: pending - CXR: normal - CT: no acute process ASSESSMENT/PLAN: 52 year old female with - Fever in the setting of chemotherapy on 08/24: Vanc/Zosyn empirically; continue home Valacyclovir; blood cultures pending - Pancreatic Ca, stage IV: Continue usual Rx: Creon, Oxycodone, Viral suppression with Valacyclovir, no other action at this time, follows with [facility] - Hx MRSA abscess: Vancomycin coverage as above. Site appears to be healing well at this time - Nausea/Vomiting/Generalized Weakness: Continue Decadron, Zofran, and Compazine - Transaminitis: No evidence of blockage on CT; possible effect of chemotherapy; trend liver enzymes daily - Chronic Anemia: Likely 2/2 malignancy + chemo; trend CBC daily - Hyponatremia: NSS + 20 KCl to rehydrate, re-check BMP daily - Hypokalemia: NSS + 20 KCl to rehydrate, re-check BMP daily - DVT: SCD, Teds, Lovenox - OT/PT - Level 5 - Med/Surg Resident Physician Supervision Note: I was present with during the history and exam. I discussed the case with the resident and agree with the findings and plan as documented in the note. Any exceptions or clarifications are listed here: 52 y/o F - metastatic pancreatic CA diagnosed 06/19 - Recent prolonged admission to [place] with an MRSA abscess and bacteremia. Pt has a biliary drain in place and a history of bowel obstruction. She is receiving chemo with Etoposide and Cisplatinum. She presents with nausea, vomiting and a reported fever of 100.6. No clear source is identified - she does report a change in the quality of her biliary drainage which is of unclear significance. OE AAO x 3 S1,2 R CTAB No significant abdominal tenderness to palpation No CCE P: Placed on Zosyn and received a dose of Vanc considering recent MRSA infection and pending culture results. Pt may benefit from the ability to receive outpt hydration locally as she tends to develop nausea and dehydration following chemo cycles. Above discussed with pt , resident , ER attending Documented By: Dima Santo
--- NOTE | 2017-08-29 02:48 | HISTORY & PHYSICAL EXAMINATION ---
DATE OF ADMISSION: 08/29/2017 HISTORY OF PRESENTING ILLNESS: Rona Guy is a pleasant 52-year-old female with a history of recently diagnosed stage IV pancreatic cancer. She presents today to the Emergency Room complaining of subjective fevers for the past 24 hours. Her who looks after her at home notes that he took her temperature on several occasions and noticed 3 consecutive temperature measurements of 100.6, 100.6, and then 100.2. In addition to this, he has noted around her biliary drain site that there has been an increasingly dark discharge. They deny any increasing redness around the site. Mrs. Guy does, however, note that for the past day, it has been slightly more tender. In addition to this, Mrs. Guy complains that she has been unable to take anything orally for the past 4 days since completing her most recent course of etoposide and cisplatin chemotherapy at [facility]. She has been prescribed Zofran, Compazine and Decadron which have been minimally helpful in this regard. She denies any diarrhea at this time. She denies any shortness of breath, coughing or wheezing. She denies any urinary symptoms such as urinary frequency or dysuria. She denies any chest pain, palpitations, syncope or lower extremity swelling. The patient does note that she was admitted to [facility] from 08/12/2017 until 08/25/2017 due to a MRSA positive abscess on her posterior right thigh. In addition to this at this time, there is also note that she had right upper quadrant pain and tenderness. She was treated with vancomycin and Zosyn at that time. During her admission, she also received her second course of chemotherapy with etoposide and cisplatin. Her last treatment was completed on 08/24/2017. The patient notes at that time that she did have a mild elevation in her transaminases which did improve towards the end of her hospitalization. In light of her fevers today, the patient phoned the [facility]'s millinery salesperson oncologist who recommended that she come to the Emergency Room to be evaluated with concerns for the possibility of a neutropenic fever. In the Emergency Room, her white count was shown to be 10. She was noted to have elevated transaminases in the ER. A CT of the abdomen and pelvis was done which did show some stable findings consistent with her malignancy, but no acute findings. REVIEW OF SYSTEMS: A 10-point review of systems was otherwise negative unless stated above in the history of the presenting illness. PAST MEDICAL AND SURGICAL HISTORY: 1. History of pancreatic cancer stage IV. 2. History of MRSA positive abscess. 3. History of biliary drain placement. 4. History of bowel obstruction. MEDICATIONS: Dexamethasone 4 mg p.o. twice daily for nausea, lorazepam 0.5 mg 3 times a day p.r.n. for anxiety, Zofran 8 mg every 8 hours p.o. p.r.n. for nausea, oxycodone 5 mg q. 6 p.o. p.r.n. for pain, oxycodone extended release 10 mg p.o. q. 12 for pain, pancrelipase 1 cap with meals, pantoprazole 40 mg p.o. twice daily, polyethylene glycol 17 grams p.o. daily, prochlorperazine 10 mg p.o. q. 6 hours p.r.n. for nausea, senna 1 tab p.o. daily, simethicone 180 mg p.o. p.r.n. for gas and bloating, valacyclovir 500 mg p.o. daily. ALLERGIES: There are no known medication allergies. SOCIAL HISTORY: The patient is a nonsmoker. The patient denies drinking alcohol. She lives at home with her and daughter. At the time she is not working due to her treatment for cancer. Her background is that she has previously been quite active and prior to her diagnosis was in fact running marathons. FAMILY HISTORY: The patient states that she does have a family history of neuroendocrine tumor. It is uncertain whether her current malignancy diagnosis is in anyway related to her family history of these neuroendocrine tumors. PHYSICAL EXAMINATION: VITAL SIGNS: Are as noted in the electronic medical records. On arrival, her temperature was 37.2, pulse 77, respiration rate 18, blood pressure 126/86, pulse oximetry 98% on room air. GENERAL: The patient appears comfortable, not in any overt pain or distress. NEUROLOGICAL: The patient is alert and oriented x3. HEAD: Normocephalic, atraumatic, no obvious scalp lesions. EYES: Pupils are equal, round and reactive bilaterally. There are normal extraocular eye movements. EAR, NOSE AND THROAT: Mucous membranes are slightly dry, TMs are clear bilaterally, pharynx is clear, there is no sinus tenderness. NECK: No JVD, no thyromegaly, neck is supple, there is no obvious lymphadenopathy. RESPIRATORY/CHEST: Breath sounds are vesicular bilaterally, there is no evidence of crackles or wheezing, there is no chest tenderness to palpation. HEART: S1 and S2 with no added sounds or murmurs, rubs or gallops. ABDOMEN/GASTROINTESTINAL: Soft, nontender and nondistended. There is a biliary drain in the right upper quadrant without any obvious tenderness to palpation around the site. There is very trace erythema around the drain placement site which is normal according to her . Bowel sounds are present in all 4 quadrants. BACK: No tenderness to palpation along the spinous processes or the paraspinal areas. EXTREMITIES: No calf tenderness. No calf swelling. There is a noted lesion on the posterior of her right thigh consistent with her previous abscess. The area is slightly erythematous, but there is no obvious purulence, and there is no tenderness to palpation. SKIN: There are no other obvious integumentary abnormalities. LABORATORY DATA AND INVESTIGATIONS: Hematology: WBC 10.1, hemoglobin 9.3, hematocrit 27.3, platelets 199. Electrolytes: Sodium 132, potassium 3.3, chloride 93, bicarbonate 30. Renal function: BUN 20, creatinine 0.98, EGFR of 65.4. Liver enzymes/function: AST 175, ALT 253, alkaline phosphatase 848 (these numbers were compared to labs done at [facility] on 08/25/2017, which showed AST 37, ALT 51 and alkaline phosphatase 477. Urinalysis is pending at this time. Blood cultures have been drawn and are pending at this time. Chest x-ray: Shows no acute process. CT of the abdomen and pelvis: Is read as no infiltrate at the lung base. Atelectasis and tiny nodular opacities, example right lower lobe. These do not appear significantly changed. Interval placement of biliary stent. Pneumobilia nonspecific given stent placement. Decreasing biliary dilatation compared to the prior. Pancreatic mass again noted. Allowing for differences in study, grossly stable in appearance compared to the prior. Liver lesion seen on the previous CT again identified. Perhaps slightly increased in size though apparent increase may at least be in part due to technical differences between studies. Indeterminate right renal lesion appears similar in size to previous examination. No bowel obstruction, evidence for acute pancreatitis or other acute process is identified. ASSESSMENT AND PLAN: This is a pleasant 52-year-old female with a history of stage IV pancreatic CA, who presents with subjective fevers in the setting of recent completion of chemotherapy. Her problem list is as follows: 1. Fever in the setting of recent chemotherapy. 2. Pancreatic cancer, stage IV. 3. History of methicillin-resistant Staphylococcus aureus abscess. 4. Nausea/vomiting/inability to take p.o. 5. Generalized weakness. 6. Acute on chronic transaminitis. 7. Anemia. 8. Hyponatremia. 9. Hypokalemia. PLAN: 1. With regards to her fever, we will start empiric treatment with vancomycin and piperacillin/tazobactam. These should cover her for her history of MRSA as well as cover for a biliary/intra-abdominal process. In addition, blood cultures have been drawn and are currently pending. We will evaluate her fever curve overnight. 2. With regards to her MRSA abscess, this appears stable at this time. However, in the setting of her fever, we will cover with antibiotics as noted above with vancomycin. 3. Regarding her pancreatic cancer stage IV. We will continue all her regular medications which include oxycodone, pancrelipase and chronic viral suppression with valacyclovir. 4. With regards to her nausea and vomiting, we will continue to treat her with Decadron, Zofran, and prochlorperazine. 5. Regarding her generalized weakness, this is likely secondary effect to her fevers as well as recent treatment with chemotherapy. We will attempt to treat this with IV rehydration as well as consult for occupational and physical therapy. 6. Regarding her transaminitis, her transaminases do appear to increase slightly since her most recent admission. We will trend these daily at this time. She does have the stent in place. At this time, there is no indication to consults additional services. 7. Regarding her anemia, this appears to be chronic and likely related to her diagnosis of pancreatic cancer. We will continue to trend her CBC daily. 8. Regarding her hyponatremia, we are treating the patient with IV normal saline. At this time, we will merely monitor the BMP daily. 9. Regarding her hypokalemia, her IV fluids are supplemented with potassium chloride and as such we will simply monitor the BMP level daily as well. 10. Regarding DVT prophylaxis, the patient will be given SCDs and PIERRE stockings. In addition, we will treat her with enoxaparin 40 mg subcutaneously daily. 11. As noted above we will give the patient occupational and physical therapy orders to hopefully help improve her weakness. 12. The patient states that she is a level 5 DNR. She appoints her to be her substitute decision maker in case she cannot make decisions for herself. 13. The patient will be admitted to the medical surgical floor for continued management and observation.
[2017-08-29] MEDS: NSS + 20MEQ KCL 1000ML 1,000 ML IV SCH ×3 (02:57→20:49)
[2017-08-29] MEDS: ONDANSETRON INJ 2 MG/ML 2 ML VIAL IV PRN ×3 (06:39→22:12)
[2017-08-29] MEDS: PIPERACILL/TAZOBAC IV 3.375 GM in DEXTROSE 5% 100ML 100 ML IV SCH ×3 (06:44→22:16)
[2017-08-29 07:02] LABS: PROTHROMBIN TIME (PATIENT) 10.8 SECONDS (9.0-12.0)
[2017-08-29] MEDS: PANTOprazole SOD 40 MG TAB PO SCH ×2 (07:54→20:28)
[2017-08-29] MEDS: PANCREAZE (LIPASE 10,500U) CAP PO SCH ×3 (07:54→16:22)
[2017-08-29] MEDS: DEXAMETHASONE 4 MG TAB PO SCH ×2 (07:54→20:28)
[2017-08-29] MEDS: DOCUSATE SODIUM/SENNA 50/8.6MG TAB PO SCH (07:54)
[2017-08-29] MEDS: POLYETHYLENE (MIRALAX) 17 GM PACK PO SCH (07:55)
--- NOTE | 2017-08-29 07:58 | DIAGNOSTIC IMAGING REPORT ---
CT SCAN OF THE ABDOMEN AND PELVIS WITH IV CONTRAST CLINICAL HISTORY: Nausea and vomiting. Pancreatic cancer. Fever. Biliary drain. COMPARISON STUDY: Abdominal CT dated 06/28/2017. TECHNIQUE: Following the IV administration of 93 cc of Optiray 320, CT scan of the abdomen and pelvis is performed from the lung bases to the proximal femora. Images are reviewed in the axial, sagittal, and coronal planes. IV contrast was administered without complication. A dose lowering technique was utilized adhering to the principles of ALARA. CT DOSE: 292.92 mGy.cm FINDINGS: Lung bases: The heart is enlarged and without pericardial effusion. The lung bases are clear noting dependent atelectasis. An 8 mm nodule in the left breast seen on image #3 is unchanged. Liver: The contrast-enhanced liver is normal in size and contour. Hepatic attenuation is heterogeneous. A biliary drain is new from previous. This extends percutaneous from the right lobe and terminates in the duodenum. There is mild to moderate intrahepatic biliary ductal dilatation. Pneumobilia is observed. The hepatic veins and portal veins are patent. There has been progression of hepatic metastatic disease as compared to 06/28/2017. A lesion in the right lobe seen on image #147 measures 3.1 cm (previously measured 1.6 cm). A 2.0 cm low-attenuation lesion in the inferior right lobe seen on image #196. A 1.2 cm lesion in the left lobe is suggested on image #120. These were not seen previously. Gallbladder: Unremarkable. Spleen: Normal in size and attenuation. Pancreas: There is an ill-defined mass lesion again suggested involving the pancreatic head. The pancreas body and tail are normal in appearance. The pancreatic duct is prominent measuring up to 4 mm in diameter. Adrenal glands: Unremarkable. Kidneys: The contrast enhanced kidneys appear enlarged and without hydronephrosis. The kidneys enhance heterogeneously. A 2.3 cm low-attenuation focus is again suggested in the right kidney on image #135. Abdominal vasculature: The abdominal aorta is normal in course and caliber. Bowel: The small bowel and colon are normal in course and caliber. The appendix is not visualized. Peritoneum: There is no intraperitoneal free air. Trace free fluid is seen in the cul-de-sac. Lymphadenopathy: Mildly enlarged retroperitoneal lymph nodes are suggested. A node on image #176 measures 1.2 cm in short axis. Pelvic viscera: The bladder, uterus, and adnexa are normal as visualized. Skeletal structures: The skeletal structures are osteopenic. There is mild lumbosacral spondylosis. No lytic or blastic lesions are seen. IMPRESSION: 1. A percutaneous biliary drain is new from 06/28/2017. This extends from the inferior right lobe to the duodenum. 2. There is [id number] intrahepatic biliary ductal dilatation which has decreased from previous. Pneumobilia suggests patency of the drain. 3. Progression of hepatic metastatic disease as compared to 06/28/2017. 4. An ill-defined mass lesion is again seen in the pancreatic head. This is not delineated. 5. The kidneys appear enlarged and demonstrate heterogeneous perfusion. Correlation with clinical findings and urinalysis will be required. 6. A 2.2 cm low-attenuation lesion is again suggested in the interpolar right kidney and similar to previous. 7. Mildly enlarged retroperitoneal lymph nodes are identified. 8. There is a small volume of free fluid in the pelvis. 9. Cardiomegaly. 10. Additional findings as above. Electronically signed by: Javon Castro M.D. 08/29/2017 7:56 AM Dictated Date/Time: 08/29/2017 7:45 AM
--- NOTE | 2017-08-29 09:37 | Pharmacy Progress Note ---
Pharmacy Abx Initial Consult Date of Service Aug 29, 2017. Pharmacy Dosing Scope Date of Consult: 08/29/17 Consultation requested by: Dr. Frausto Pharmacy is consulted to initiate VANCOMYCIN and ZOSYN IV therapy, order appropriate labs and adjust drug dose/frequency. Subjective The patient is a 52 year old female admitted on Aug 29, 2017 at 00:58 for nausea , vomiting, and fever in the setting of pancreatic CA with recent chemotherapy. Objective Height (Feet): 5 Height (Inches): 3.00 Weight (Kilograms): 68.200 Vital Signs (Past 12Hrs) Vital Signs Past 12 Hours Date Time Temp Pulse Resp B/P (MAP) Pulse Ox O2 Delivery O2 Flow Rate FiO2 08/29/17 08:17 36.9 64 16 136/84 (101) 98 08/29/17 02:01 37.1 69 20 111/76 96 Room Air 08/29/17 01:42 65 20 96/60 96 08/29/17 00:05 69 20 122/77 98 Room Air 08/28/17 22:50 74 20 114/74 96 Room Air 08/28/17 22:10 65 20 100/53 96 Room Air 08/28/17 21:52 78 Lab Results (24Hrs) Laboratory Tests (24 Hours) Test 08/28/17 21:30 Lactic Acid Level 1.4 mmol/L (0.4-2.0) White Blood Count 10.18 K/uL (4.8-10.8) Red Blood Count 3.01 M/uL (4.2-5.4) L Hemoglobin 9.3 g/dL (12.0-16.0) L Hematocrit 27.3 % (37-47) L Mean Corpuscular Volume 90.7 fL (80-100) Mean Corpuscular Hemoglobin 30.9 pg (25-34) Mean Corpuscular Hemoglobin Concent 34.1 g/dl (32-36) Platelet Count 199 K/uL (130-400) Mean Platelet Volume 12.0 fL (7.4-10.4) H Neutrophils (%) (Auto) 74.6 % Lymphocytes (%) (Auto) 19.5 % Monocytes (%) (Auto) 1.4 % Eosinophils (%) (Auto) 2.7 % Basophils (%) (Auto) 0.7 % Neutrophils # (Auto) 7.60 K/uL (1.4-6.5) H Lymphocytes # (Auto) 1.99 K/uL (1.2-3.4) Monocytes # (Auto) 0.14 K/uL (0.11-0.59) Eosinophils # (Auto) 0.27 K/uL (0-0.5) Basophils # (Auto) 0.07 K/uL (0-0.2) Micro Results Date/Time Source Procedure Growth Status 08/28/17 21:45 Blood Blood Culture Pending Received 08/28/17 21:30 Blood Blood Culture Pending Received Risk Factors for Resistance * Hospitalization for 48 hours or more within the past 90 days * Immunocompromised (chemotherapy: cisplatin + etoposide 08/24) * History of infection with a multidrug-resistant organism: MRSA R thigh abscess * Antimicrobial use within the last 90 days Assessment & Plan Assessment * 52 year old female admitted for fever, nausea and vomiting. * She has a h/o stage 4 pancreatic CA w/ recent chemotherapy in the past week. No neutropenia noted on admission labs. * Recently admitted to [facility] 08/12 thru 08/25 for MRSA abscess of R thigh * Empiric abx therapy ordered for 48 hrs pending diagnostic workup * Has been afebrile since admission, lactate WNL and WBC/neut also WNL * UA not suggestive of infection, CXR read as negative for acute process, CT abd /pelvis reported stable / no acute changes per attending * She may have an element of NURIS, reviewed prior labs and it appears baseline SCr ~0.6-0.7; current SCr 0.98 Plan Vancomycin IV * Loading dose: 1250 mg (18.3 mg/kg) * Maintenance dose: 1000 mg IV (14.7 mg/kg) every 12 hours * Goal trough level for MRSA skin/skin structure infxn +/- intraabd infxn : 15 to 20 mcg/mL until results of C&S known * Dosing was based upon near baseline renal fxn as she is receiving IV hydration ; if SCr not improving tomorrow may need to reduce dose * P'kinetic estimates: Vd 0.7L/kg; half-life ~10-12 hours * Will order trough level if therapy to continue beyond 48 hours Piperacillin/tazobactam * 4.5 g bolus administered over 30 minutes, then 3.375 g IV extended infusion every 8 hours for CrCl greater than 20 mL/min Pharmacy will continue to follow and will adjust dose/frequency as necessary. Thank you.
--- NOTE | 2017-08-29 09:53 | Family Medicine Progress Note ---
Progress Note Date of Service Aug 29, 2017. Subjective Pt evaluation today including: conversation w/ patient, physical exam, chart review, lab review, review of inpatient medication list Pain: LUQ and epigastric pain reported PO Intake: Tolerating PO intake Voiding: no voiding problems Ms. Guy reports that she feels pain in her LUQ and epigastric region after eating. She states her abdomen feels "growly" and that she has gas after she eats. She also reports unrelenting nausea, despite her medicatons, in addition to generalized aches and pains. She denies chest pain, SOB, vomiting, dysuria, frequency, or pain over her previous abscess site. Her notes that her biliary drain was draining darker fluid than usual, but denies increased production, blood or foul odor to discharge. Constitutional: No fever, No chills Respiratory: No cough, No sputum, No wheezing, No shortness of breath Abdomen: + pain, No vomiting, No diarrhea, No constipation Female : No dysuria, No urinary frequency All Other Systems: Reviewed and Negative Medications Current Inpatient Medications Medications (Trade) Dose Ordered Sig/Poppy Route Start Time Stop Time Status Last Admin Dose Admin Ioversol (Optiray 320) 100 ml UD PRN IV 08/28/17 21:45 09/01/17 21:44 Enoxaparin Sodium (Lovenox Inj) 40 mg Q24H SQ 08/29/17 09:00 09/28/17 08:59 Acetaminophen (Tylenol Tab) 650 mg Q4H PRN PO 08/29/17 01:00 09/28/17 00:59 Al Hydrox/Mg Hydrox/Simethicone (Maalox Max Susp) 15 ml Q4H PRN PO 08/29/17 01:00 09/28/17 00:59 Magnesium Hydroxide (Milk Of Magnesia Susp) 30 ml Q6H PRN PO 08/29/17 01:00 09/28/17 00:59 Polyethylene (Miralax Powder Packet) 17 gm DAILY PRN PO 08/29/17 01:00 09/28/17 00:59 Ondansetron HCl (Zofran Inj) 4 mg Q6H PRN IV 08/29/17 01:00 09/28/17 00:59 08/29/17 06:39 4 MG Potassium Chloride/Sodium Chloride 1,000 ml @ 125 mls/hr Q8H IV 08/29/17 02:00 09/28/17 01:59 08/29/17 02:57 125 MLS/HR Dexamethasone (Decadron Tab) 4 mg BID PO 08/29/17 08:00 09/01/17 07:59 08/29/17 07:54 4 MG Lorazepam (Ativan Tab) 0.5 mg TID PRN PO 08/29/17 01:00 09/28/17 00:59 Ondansetron HCl (Zofran Tab) 8 mg Q8 PRN PO 08/29/17 01:00 09/28/17 00:59 Oxycodone HCl (Oxycontin Tab) 10 mg Q12 PO 08/29/17 09:00 09/12/17 08:59 Pantoprazole Sodium (Protonix Tab) 40 mg BID PO 08/29/17 08:00 09/28/17 08:59 08/29/17 07:54 40 MG Prochlorperazine Maleate (Compazine Tab) 10 mg Q6 PRN PO 08/29/17 01:00 09/28/17 00:59 Senna/Docusate Sodium (Senokot S Tab) 1 tab DAILY PO 08/29/17 08:00 09/28/17 08:59 08/29/17 07:54 1 TAB Valacyclovir HCl (Valtrex Tab) 500 mg DAILY PO 08/29/17 08:00 09/28/17 08:59 08/29/17 07:54 500 MG Amylase/Lipase/ Protease (Pancreaze (Lipase 10,500U) Cap) 1 cap AC PO 08/29/17 06:30 09/28/17 07:59 08/29/17 07:54 1 CAP Polyethylene (Miralax Powder Packet) 17 gm DAILY PO 08/29/17 08:00 09/28/17 08:59 08/29/17 07:55 17 GM Simethicone (Mylicon Chew Tab) 160 mg Q6H PRN PO 08/29/17 01:45 09/28/17 01:44 08/29/17 07:55 160 MG Oxycodone HCl (Roxicodone Immediate Rel Tab) 5 mg Q6H PRN PO 08/29/17 01:00 09/12/17 00:59 Miscellaneous (Iv Fluids Completed) 1 ea PRN PRN N/A 08/29/17 01:15 08/29/18 01:14 Piperacillin Sod/ Tazobactam Sod 3.375 gm/Dextrose 115 ml @ 28.75 mls/ hr Q8H IV 08/29/17 06:00 08/31/17 05:59 08/29/17 06:44 28.75 MLS/HR Vancomycin HCl (Consult) 1 ea UD PRN N/A 08/29/17 01:45 09/28/17 01:44 Piperacillin Sod/ Tazobactam Sod (Consult) 1 ea UD PRN N/A 08/29/17 01:45 09/28/17 01:44 Vancomycin HCl 1000 mg/Sodium Chloride 270 ml @ 125 mls/hr Q12H IV 08/29/17 12:00 08/31/17 11:59 Objective Vital Signs Date Time Temp Pulse Resp B/P (MAP) Pulse Ox O2 Delivery O2 Flow Rate FiO2 08/29/17 08:17 36.9 64 16 136/84 (101) 98 08/29/17 02:01 37.1 69 20 111/76 96 Room Air 08/29/17 01:42 65 20 96/60 96 08/29/17 00:05 69 20 122/77 98 Room Air 08/28/17 22:50 74 20 114/74 96 Room Air 08/28/17 22:10 65 20 100/53 96 Room Air 08/28/17 21:52 78 08/28/17 20:44 37.2 77 18 126/86 98 Room Air Physical Exam General Appearance: WD/WN, no apparent distress, + pertinent finding (appears fatigued) Respiratory/Chest: chest non-tender, lungs clear, normal breath sounds, no respiratory distress, no accessory muscle use Cardiovascular: regular rate, rhythm, no edema, no gallop, no JVD, no murmur Abdomen: normal bowel sounds, non tender, soft, no organomegaly, no pulsatile mass, + pertinent finding (dressing in place over biliary drain) Laboratory Results Last 24 Hours Test 08/28/17 21:30 08/29/17 01:12 08/29/17 06:23 08/29/17 09:28 White Blood Count 10.18 K/uL Red Blood Count 3.01 M/uL Hemoglobin 9.3 g/dL Hematocrit 27.3 % Mean Corpuscular Volume 90.7 fL Mean Corpuscular Hemoglobin 30.9 pg Mean Corpuscular Hemoglobin Concent 34.1 g/dl Platelet Count 199 K/uL Mean Platelet Volume 12.0 fL Neutrophils (%) (Auto) 74.6 % Lymphocytes (%) (Auto) 19.5 % Monocytes (%) (Auto) 1.4 % Eosinophils (%) (Auto) 2.7 % Basophils (%) (Auto) 0.7 % Neutrophils # (Auto) 7.60 K/uL Lymphocytes # (Auto) 1.99 K/uL Monocytes # (Auto) 0.14 K/uL Eosinophils # (Auto) 0.27 K/uL Basophils # (Auto) 0.07 K/uL RDW Standard Deviation 42.4 fL RDW Coefficient of Variation 12.8 % Immature Granulocyte % (Auto) 1.1 % Immature Granulocyte # (Auto) 0.11 K/uL Sodium Level 132 mmol/L Potassium Level 3.3 mmol/L Chloride Level 93 mmol/L Carbon Dioxide Level 30 mmol/L Anion Gap 9.0 mmol/L Blood Urea Nitrogen 20 mg/dl Creatinine 0.98 mg/dl Est Creatinine Clear Calc Drug Dose 60.1 ml/min Estimated GFR () 75.8 Estimated GFR (Non- 65.4 BUN/Creatinine Ratio 19.9 Random Glucose 108 mg/dl Lactic Acid Level 1.4 mmol/L Calcium Level 8.8 mg/dl Total Bilirubin 1.0 mg/dl Direct Bilirubin mg/dl Aspartate Amino Transf (AST/SGOT) 175 U/L Alanine Aminotransferase (ALT/SGPT) 253 U/L Alkaline Phosphatase 848 U/L Total Protein 7.4 gm/dl Albumin 2.9 gm/dl Chemistry Specimen Hemolysis Urine Color YELLOW Urine Appearance CLEAR Urine pH 7.0 Urine Specific [place] 1.024 Urine Protein TRACE Urine Glucose (UA) NEG Urine Ketones NEG Urine Occult Blood NEG Urine Nitrite NEG Urine Bilirubin NEG Urine Urobilinogen NEG Urine Leukocyte Esterase NEG Urine WBC (Auto) 1-5 /hpf Urine RBC (Auto) 0-4 /hpf Urine Hyaline Casts (Auto) 0 /lpf Urine Epithelial Cells (Auto) 10-20 /lpf Urine Bacteria (Auto) NEG Prothrombin Time 10.8 SECONDS Prothromb Time International Ratio 1.0 Assessment and Plan Ms. Guy is a pleasant 52 year old lady with a history of stage 4 pancreatic cancer s/p biliary drain placement who presents to [facility] following fevers measured at home. Fever - empirically treating with Zosyn and Vanc -> covering for biliary source as well as previous hx of MRSA abscess in right leg - bcx pending - no fevers overnight - WCC 10.18 - AST 117, ALT 208, Alk phos 744 and total bilirubin 1.1 - given transaminase elevation and biliary drain - likely source is biliary tree - consult Dr. Tavera for possible ERCP given transaminase picture is obstructive in nature Elevated liver enzymes - increased from her most recent admission - trend -> slightly decreased from yesterday MRSA abscess on posterior right thigh - treated at [place] - no recurrence of symptoms Pancreatic cancer, stage 4 - continue regular meds - oxycodone, pancrelipase and chronic viral suppression with valacyclovir Nausea and vomiting - continue regimen of Decadron, Zofran, and prochlorperazine. - had been on decadron for 2 days prior to admission - added in metoclopramide 5mg q6hr as per pharmacy to aid with unrelenting nausea - ?3.1mg 24 hour granisetron patch on d/c to help with future episodes of nausea - will write to PCP to ensure she receives IVF after chemotherapy as she seems particularly susceptible to n/v Generalized weakness - secondary to chemo/infection, will hopefully improve with resolution of infection - OT/PT eval Anemia - chronic, likely related to pancreatic cancer Hyponatremia/Hypokalemia - IV fluids - Kcl/NaCl - 125mls/hr Code status: DNR, is surrogate decision maker if she is incapacitated DVT Prophylaxis: SCDs, PIERRE stockings and 40mg enoxaparin SQ daily Dispo: remains on med/surg, OT/PT evals Resident Physician Supervision Note: I interviewed and examined the patient. Discussed with Dr. Sharp and agree with findings and plan as documented in the note. Any exceptions or clarifications are listed here: None Documented By: Den Steiner feeling much better, no pain no nausea no more fevers. vitals noted nad no pallor or icterus fever with predominantly obstructive LFT pattern - much higher than just on , suspect infection of biliary source. stabilized w abx, consult GI for ? definitive management vs just needing ongoing abx anemia - likely hypoproliferative from chemo induced marrow suppression otherwise as above Resident Tracking Resident Involvement: Resident Care Provided Care Provided: Adult Hospital Medicine
[2017-08-29] MEDS: OXYCODONE HCL 10 MG TABCR (OXYCONTIN) PO SCH ×2 (09:56→20:29)
[2017-08-29 10:09] LABS: BUN/CREATININE RATIO 16.2 (10-20); CALCIUM 8.6 mg/dl (8.5-10.1); CREATININE 0.93 mg/dl (0.60-1.20); POTASSIUM 3.4 mmol/L (3.5-5.1)
[2017-08-29 10:12] LABS: ALB/GLOB RATIO 0.7 (0.9-2)
[2017-08-29] MEDS: ENOXAPARIN 40 MG/0.4 ML SYR SQ SCH (10:30)
[2017-08-29] MEDS: VANCOMYCIN INJ 1,000 MG in SODIUM CHLORIDE 0.9% 250ML 250 ML IV SCH (11:47)
[2017-08-29] MEDS ORDERED: VANCOMYCIN INJ 750 MG in SODIUM CHLORIDE 0.9% 250ML 250 ML IV SCH (12:00)
[2017-08-29] MEDS ORDERED: METOCLOPRAMIDE HCL 5 MG TAB PO PRN (13:00)
[2017-08-29] MEDS: PROCHLORPERAZINE MALEATE 10 MG TAB PO PRN (17:41)
[2017-08-29] MEDS: LORAZEPAM 0.5 MG TAB PO PRN (20:28)
[2017-08-29] MEDS: METOCLOPRAMIDE HCL 5 MG TAB PO PRN (20:28)
--- NOTE | 2017-08-29 20:38 | Medical Student: [facility] ---
Med Student Progress Note Date of Service Aug 29, 2017. Subjective Pt evaluation today including: conversation w/ patient, physical exam Pain: None PO Intake: Poor Voiding: no voiding problems Ms. Guy is a 52-year-old woman with a history of Stage 4 pancreatic cancer s/ p biliary drain placement who presented to the ED with fevers measured at home over the past 24 hours. measured her temperature which ranged from 100.2 to 110.6. This prompted them to call her oncologist who encouraged her to come to the hospital to have this worked up. Despite these readings, the voiced skepticism of the measurement because he took her temperature right after she took a hot shower. In addition to the fever, the patient reports that the fluid draining from her biliary drain has been darker in color recently. However, there has been no change in the amount or odor of the drainage, and she denies RUQ pain. She also has been more nauseous lately and states that she has vomited at least once per day for the past 4 days. She says that her stomach is "burpy and growly." Patient also notes that she was hospitalized from 08/12 - 08/25 for a MRSA+ abscess on her right posterior thigh for which she was hospitalized in [place] and treated with Vancomycin and Zosyn. She denies pain, tenderness, or warmth in the region now. Review of Systems Constitutional: No fever, No chills Respiratory: No cough, No sputum, No shortness of breath Cardiac: No chest pain, No edema Abdomen: + nausea, + vomiting, No pain Female : No dysuria, No problem reported Psychiatric: + problem reported (reports "crying every day") Objective Vital Signs Date Time Temp Pulse Resp B/P (MAP) Pulse Ox O2 Delivery O2 Flow Rate FiO2 08/29/17 19:41 36.9 57 16 152/88 (109) 99 Room Air 08/29/17 16:15 100 Room Air 08/29/17 15:21 36.6 58 16 132/83 (99) 100 08/29/17 10:54 36.7 63 16 142/88 (106) 96 08/29/17 08:30 98 Room Air 08/29/17 08:17 36.9 64 16 136/84 (101) 98 08/29/17 02:01 37.1 69 20 111/76 96 Room Air 08/29/17 01:42 65 20 96/60 96 08/29/17 00:05 69 20 122/77 98 Room Air 08/28/17 22:50 74 20 114/74 96 Room Air 08/28/17 22:10 65 20 100/53 96 Room Air 08/28/17 21:52 78 08/28/17 20:44 37.2 77 18 126/86 98 Room Air Physical Exam Respiratory/Chest: lungs clear, normal breath sounds, no respiratory distress Cardiovascular: regular rate, rhythm, no edema, no gallop Abdomen: normal bowel sounds, non tender, soft Extremities: non-tender, no pedal edema, no calf tenderness Neurologic/Psychiatric: + pertinent finding (tearful when discussing cancer) Laboratory Results Last 24 Hours Test 08/28/17 21:30 08/29/17 01:12 08/29/17 06:23 White Blood Count 10.18 K/uL Red Blood Count 3.01 M/uL Hemoglobin 9.3 g/dL Hematocrit 27.3 % Mean Corpuscular Volume 90.7 fL Mean Corpuscular Hemoglobin 30.9 pg Mean Corpuscular Hemoglobin Concent 34.1 g/dl Platelet Count 199 K/uL Mean Platelet Volume 12.0 fL Neutrophils (%) (Auto) 74.6 % Lymphocytes (%) (Auto) 19.5 % Monocytes (%) (Auto) 1.4 % Eosinophils (%) (Auto) 2.7 % Basophils (%) (Auto) 0.7 % Neutrophils # (Auto) 7.60 K/uL Lymphocytes # (Auto) 1.99 K/uL Monocytes # (Auto) 0.14 K/uL Eosinophils # (Auto) 0.27 K/uL Basophils # (Auto) 0.07 K/uL RDW Standard Deviation 42.4 fL RDW Coefficient of Variation 12.8 % Immature Granulocyte % (Auto) 1.1 % Immature Granulocyte # (Auto) 0.11 K/uL Sodium Level 132 mmol/L 134 mmol/L Potassium Level 3.3 mmol/L 3.4 mmol/L Chloride Level 93 mmol/L 99 mmol/L Carbon Dioxide Level 30 mmol/L 28 mmol/L Anion Gap 9.0 mmol/L 7.0 mmol/L Blood Urea Nitrogen 20 mg/dl 15 mg/dl Creatinine 0.98 mg/dl 0.93 mg/dl Est Creatinine Clear Calc Drug Dose 60.1 ml/min 64.1 ml/min Estimated GFR () 75.8 80.8 Estimated GFR (Non- 65.4 69.7 BUN/Creatinine Ratio 19.9 16.2 Random Glucose 108 mg/dl 91 mg/dl Lactic Acid Level 1.4 mmol/L Calcium Level 8.8 mg/dl 8.6 mg/dl Total Bilirubin 1.0 mg/dl 1.1 mg/dl Direct Bilirubin mg/dl Aspartate Amino Transf (AST/SGOT) 175 U/L 117 U/L Alanine Aminotransferase (ALT/SGPT) 253 U/L 208 U/L Alkaline Phosphatase 848 U/L 744 U/L Total Protein 7.4 gm/dl 7.0 gm/dl Albumin 2.9 gm/dl 2.8 gm/dl Chemistry Specimen Hemolysis Urine Color YELLOW Urine Appearance CLEAR Urine pH 7.0 Urine Specific [place] 1.024 Urine Protein TRACE Urine Glucose (UA) NEG Urine Ketones NEG Urine Occult Blood NEG Urine Nitrite NEG Urine Bilirubin NEG Urine Urobilinogen NEG Urine Leukocyte Esterase NEG Urine WBC (Auto) 1-5 /hpf Urine RBC (Auto) 0-4 /hpf Urine Hyaline Casts (Auto) 0 /lpf Urine Epithelial Cells (Auto) 10-20 /lpf Urine Bacteria (Auto) NEG Prothrombin Time 10.8 SECONDS Prothromb Time International Ratio 1.0 Globulin 4.2 gm/dl Albumin/Globulin Ratio 0.7 Assessment and Plan Assessment and Plan: Ms. Guy is a 52-year-old woman with a history of Stage 4 pancreatic cancer s/ p biliary drain placement who presented to the ED with fevers measured at home over the past 24 hours. FEVER - Although pt reports fevers from home, there has been no documented fever since admission. However due to her immunosuppressed state, the possibility of infection is still present. With history of changes in biliary drainage and elevated liver enzymes, it is possible the infection is in the biliary tree. We will culture the drainage to find a causative organism and obtain blood cultures. We will start Zosyn for Gram - coverage. - CXR does not show lobar opacities or infiltrates suggestive of pneumonia. Pt does not report shortness of breath, cough, or chest pain. These findings make pneumonia less likely. - Pt reports no symptoms of UTI. UA only showed trace protein and epithelial cells. This makes UTI unlikely. - Pt reports no tenderness, warmth, or pain around previous abscess. Reinfection is unlikely but still a possibility. We will start vancomycin because it will cover MRSA if this is the case. ELEVATED LIVER ENZYMES - On 08/29: AST 175, ALT 253, Alk Phos 848. - Elevation could be secondary to liver metastases from the pancreatic cancer or an acute obstruction due to possible cholangitis as described above. We will continue to monitor as we administer empiric antibiotics. ABSCESS - As above - appears to be resolved. PANCREATIC CANCER - Continue palliative medicines including oxycodone, lorazepam, pancrealipase. NAUSEA AND VOMITING - Continue to offer Zofran and Prochlorperazine. - Encourage liquids and solids. - Consider Phenergan if symptoms continue. ANEMIA - Likely due to chronic disease and/or chemotherapy. HYPONATREMIA AND HYPOKALEMIA - Start normal saline at 125 cc/hour. - Consider potassium supplementation if NS does not correct on its own. DVT PROPHYLAXIS - Start enoxaparin at 40 mg. - Provide PIERRE stockings. - Encourage pt to ambulate as tolerated.
[2017-08-30] MEDS: VANCOMYCIN INJ 1,000 MG in SODIUM CHLORIDE 0.9% 250ML 250 ML IV SCH ×2 (00:03→12:09)
[2017-08-30 02:55] VITALS: BP 169/101; PULSE 64; TEMP 36.9; O2SAT 97
[2017-08-30] MEDS: PIPERACILL/TAZOBAC IV 3.375 GM in DEXTROSE 5% 100ML 100 ML IV SCH ×3 (05:56→21:56)
[2017-08-30 06:53] LABS: BASO ABS # 0.07 K/uL (0-0.2); EOS % 3.6 %; HEMATOCRIT 23.4 % (37-47); IG% 0.9 %; LYMPH % 27.1 %; LYMPH ABS # 1.86 K/uL (1.2-3.4); MEAN CELL VOLUME 92.1 fL (80-100); MEAN CORPUSCULAR HEMOGLOBIN 30.7 pg (25-34); MEAN CORPUSCULAR HGB CONC 33.3 g/dl (32-36); MEAN PLATELET VOLUME 11.7 fL (7.4-10.4); MONO % 3.6 %; NEUT % 63.8 %; PLATELET COUNT 152 K/uL (130-400); RED BLOOD COUNT 2.54 M/uL (4.2-5.4); WHITE BLOOD COUNT 6.86 K/uL (4.8-10.8)
--- NOTE | 2017-08-30 07:19 | GASTROINTESTINAL CONSULTATION ---
DATE OF CONSULTATION: 08/29/2017 CHIEF COMPLAINT: Abnormal liver test, history of pancreatic cancer metastatic to liver, status post MRSA, skin infection and chemotherapy. HISTORY OF PRESENT ILLNESS: Mrs. Guy is a 52-year-old white female, known to me from a prior hospitalization in June of this year. At that time, the patient had evidence of pancreatitis and ultimately was found to have metastatic carcinoma of the pancreas. This was ultimately diagnosed at [facility]. Since that time, the patient has received two rounds of chemotherapy; one initially in July and again one anticipated for mid August. However, the patient was experiencing fevers and chills, was found to have a "boil" on the back of her leg which turned out to be MRSA and was hospitalized for 14 days of vancomycin and Zosyn. During that time, her liver tests were elevated and approximately on 08/18/2017 underwent replacement of her percutaneous internalized biliary drain placed by the Interventional Radiology at [place]. The patient has struggled with difficulty with nausea and vomiting, but was eventually discharged on where she continued to experience some episodes of nausea and vomiting and was unable to tolerate meaningful amounts of oral intake. The patient denies any fever, chills or rigors at home and has not noticed any change in her stool or urine color to suggest increasing obstructive features. She and her did notice a small amount of green bilious drainage around the upsized percutaneous biliary drain over the past several days. The bile flow is internalized. LABORATORY STUDIES: Showed a white count of 10.18, with a hemoglobin of 9.3 and platelets of 199,000. Her serum chemistry last evening at 9:30 showed a bilirubin of 1.0, AST 175, ALT 253, alkaline phosphatase 848, BUN and creatinine of 20 and 0.98. Earlier this morning, BUN and creatinine are down to 15 and 0.9. Bilirubin is minimally elevated at 1.1, although AST has decreased to 117, ALT 208 and alkaline phosphatase of 744. The patient has no abdominal pain. INR is normal at 1.0. Blood cultures were obtained and are pending. PAST MEDICAL HISTORY: Stage IV pancreatic cancer and MRSA. Her chemotherapy at [place] includes a regimen of etoposide and cisplatin with her second dose on 08/24/2017. Although the patient denied any fevers or rigors, there is notation that the patient's had taken her temperature and recorded fever curves of 100.6 and 100.2. Her past medical history is as noted above. HOME MEDICATIONS: Include; dexamethasone, lorazepam, Zofran, pantoprazole 40 mg twice daily, MiraLax, Compazine for nausea, Senokot, simethicone and valacyclovir. ALLERGIES: She has no known drug allergies. SOCIAL HISTORY: The patient denies tobacco or alcohol usage. FAMILY HISTORY: Unremarkable and noncontributory for the current malignancy, although there is a report of neuroendocrine tumor in the family. REVIEW OF SYSTEMS: Otherwise, noncontributory based on 13-point exam except for as mentioned above. The patient denies any melena, bright red blood per rectum, hematemesis or coffee ground emesis. There is no dysuria or hematuria. There are no rashes reported. PHYSICAL EXAMINATION: VITAL SIGNS: Today, the patient is currently afebrile at 36.6, blood pressure 132/83, pulse ox 100% on room air, respirations 16 and heart rate 58. GENERAL: The patient is awake, alert and oriented x3. HEENT: Sclerae are anicteric, conjunctiva moist. Oral mucosa is moist. HEART: Normal S1, S2. LUNGS: Clear to auscultation without rales, rhonchi or wheezes. ABDOMEN: Soft, nontender and nondistended with good bowel sounds. The drain is in the right upper abdomen with a scant amount of bilious clear material on the gauze pad, but no overt drainage from the biliary tube side or around it. EXTREMITIES: Without clubbing, cyanosis or edema. RECTAL: Deferred. OTHER LABORATORY STUDIES: On admission, were as described above. IMAGING STUDIES: Includes a CT scan last evening that shows biliary drain placement, mild to moderate intrahepatic bile duct dilation which has decreased from her initial study at [facility]. There is pneumobilia. Again, a mass was seen in the pancreatic head along with features to suggest progression of her hepatic metastatic disease compared to the June 2017 CT scan. There are mildly enlarged retroperitoneal lymph nodes and cardiomegaly. Her chest x-ray on admission showed no acute process. IMPRESSION: Mrs. Guy has stage IV pancreatic cancer who has received 2 rounds of chemotherapy, the last of which was on August 24. This was slightly delayed due to the identification of a methicillin-resistant staphylococcus aureus skin infection, for which she received 2 weeks of vancomycin and Zosyn. She was discharged on Thanksgiving. The patient has not reported any rigors and her white count on admission was in the normal range. She is not on Neupogen. I do not have the LFTs available from her [facility] records. She does not have a markedly elevated bilirubin at this point. Some of the laboratory tests are elevated, although they have come down from last evening until this morning; may suggest intrahepatic replacement of the liver as opposed to biliary obstruction. I would like an opportunity to review her liver test panels from [place] recently obtained to see if there is any meaningful change in these numbers. One goal should be to maintain good control with antiemetics that will permit adequate hydration. If there is any pattern that suggests the tube is no longer functioning, change in stool or urine color, fevers, rising liver tests, then the patient may need transfer to [facility] for interrogation of the biliary drain by Interventional Radiology. At the present time, would continue the current course of antibiotics pending blood culture results. In addition, would advance diet as tolerated. All questions were answered for the patient. Dr. Jackman will be following in the hospital setting over the next three days. Thank you for allowing me to participate in this patient's care.
[2017-08-30 07:26] LABS: BUN/CREATININE RATIO 13.3 (10-20); CALCIUM 8.4 mg/dl (8.5-10.1); CREATININE 0.79 mg/dl (0.60-1.20); POTASSIUM 3.5 mmol/L (3.5-5.1)
[2017-08-30 07:27] LABS: COMPLETE YES
--- NOTE | 2017-08-30 07:31 | Family Medicine Progress Note ---
Progress Note Date of Service Aug 30, 2017. Subjective Pt evaluation today including: conversation w/ patient, conversation w/ family , physical exam, chart review, review of studies, review of inpatient medication list Pain: No pain reported PO Intake: Tolerating PO intake Voiding: no voiding problems Ms. Guy reports that she is feeling slightly better today. She still remains with the nausea, but to a lesser degree than before. She denies chest pain, shortness of breath, abdominal pain, worsening biliary drainage, fever, or chills. Constitutional: No fever, No chills Respiratory: No cough, No sputum, No wheezing, No shortness of breath Cardiovascular: No chest pain Abdomen: + nausea, No pain, No vomiting All Other Systems: Reviewed and Negative Medications Current Inpatient Medications Medications (Trade) Dose Ordered Sig/Poppy Route Start Time Stop Time Status Last Admin Dose Admin Ioversol (Optiray 320) 100 ml UD PRN IV 08/28/17 21:45 09/01/17 21:44 Enoxaparin Sodium (Lovenox Inj) 40 mg Q24H SQ 08/29/17 09:00 09/28/17 08:59 08/30/17 08:31 40 MG Acetaminophen (Tylenol Tab) 650 mg Q4H PRN PO 08/29/17 01:00 09/28/17 00:59 Al Hydrox/Mg Hydrox/Simethicone (Maalox Max Susp) 15 ml Q4H PRN PO 08/29/17 01:00 09/28/17 00:59 Magnesium Hydroxide (Milk Of Magnesia Susp) 30 ml Q6H PRN PO 08/29/17 01:00 09/28/17 00:59 Polyethylene (Miralax Powder Packet) 17 gm DAILY PRN PO 08/29/17 01:00 09/28/17 00:59 Ondansetron HCl (Zofran Inj) 4 mg Q6H PRN IV 08/29/17 01:00 09/28/17 00:59 08/30/17 07:33 4 MG Dexamethasone (Decadron Tab) 4 mg BID PO 08/29/17 08:00 09/01/17 07:59 08/30/17 08:36 4 MG Lorazepam (Ativan Tab) 0.5 mg TID PRN PO 08/29/17 01:00 09/28/17 00:59 08/29/17 20:28 0.5 MG Ondansetron HCl (Zofran Tab) 8 mg Q8 PRN PO 08/29/17 01:00 09/28/17 00:59 08/29/17 11:47 8 MG Oxycodone HCl (Oxycontin Tab) 10 mg Q12 PO 08/29/17 09:00 09/12/17 08:59 Pantoprazole Sodium (Protonix Tab) 40 mg BID PO 08/29/17 08:00 09/28/17 08:59 08/30/17 08:36 40 MG Prochlorperazine Maleate (Compazine Tab) 10 mg Q6 PRN PO 08/29/17 01:00 09/28/17 00:59 08/29/17 17:41 10 MG Senna/Docusate Sodium (Senokot S Tab) 1 tab DAILY PO 08/29/17 08:00 09/28/17 08:59 08/30/17 08:36 1 TAB Valacyclovir HCl (Valtrex Tab) 500 mg DAILY PO 08/29/17 08:00 09/28/17 08:59 08/29/17 07:54 500 MG Amylase/Lipase/ Protease (Pancreaze (Lipase 10,500U) Cap) 1 cap AC PO 08/29/17 06:30 09/28/17 07:59 08/30/17 07:34 1 CAP Polyethylene (Miralax Powder Packet) 17 gm DAILY PO 08/29/17 08:00 09/28/17 08:59 08/30/17 08:31 17 GM Simethicone (Mylicon Chew Tab) 160 mg Q6H PRN PO 08/29/17 01:45 09/28/17 01:44 08/29/17 07:55 160 MG Oxycodone HCl (Roxicodone Immediate Rel Tab) 5 mg Q6H PRN PO 08/29/17 01:00 09/12/17 00:59 Miscellaneous (Iv Fluids Completed) 1 ea PRN PRN N/A 08/29/17 01:15 08/29/18 01:14 Piperacillin Sod/ Tazobactam Sod 3.375 gm/Dextrose 115 ml @ 28.75 mls/ hr Q8H IV 08/29/17 06:00 08/31/17 05:59 08/30/17 05:56 28.75 MLS/HR Vancomycin HCl (Consult) 1 ea UD PRN N/A 08/29/17 01:45 09/28/17 01:44 Piperacillin Sod/ Tazobactam Sod (Consult) 1 ea UD PRN N/A 08/29/17 01:45 09/28/17 01:44 Vancomycin HCl 1000 mg/Sodium Chloride 270 ml @ 125 mls/hr Q12H IV 08/29/17 12:00 08/31/17 11:59 08/30/17 00:03 125 MLS/HR Metoclopramide HCl (Reglan Tab) 5 mg Q6H PRN PO 08/29/17 15:45 09/28/17 15:44 08/30/17 08:36 5 MG Objective Vital Signs Date Time Temp Pulse Resp B/P (MAP) Pulse Ox O2 Delivery O2 Flow Rate FiO2 08/30/17 02:55 36.9 64 18 169/101 (123) 97 Room Air 08/30/17 01:00 Room Air 08/29/17 22:46 36.5 59 18 149/87 (107) 100 Room Air 08/29/17 20:00 Room Air 08/29/17 19:41 36.9 57 16 152/88 (109) 99 Room Air 08/29/17 16:15 100 Room Air 08/29/17 15:21 36.6 58 16 132/83 (99) 100 08/29/17 10:54 36.7 63 16 142/88 (106) 96 Physical Exam General Appearance: WD/WN, no apparent distress Respiratory/Chest: chest non-tender, lungs clear, normal breath sounds, no respiratory distress, no accessory muscle use Cardiovascular: regular rate, rhythm, no edema, no gallop, no JVD, no murmur Abdomen: normal bowel sounds, non tender, soft, no organomegaly, no pulsatile mass, + pertinent finding (dressing in place over RUQ biliary drain) Laboratory Results Last 24 Hours Test 08/30/17 06:33 White Blood Count 6.86 K/uL Red Blood Count 2.54 M/uL Hemoglobin 7.8 g/dL Hematocrit 23.4 % Mean Corpuscular Volume 92.1 fL Mean Corpuscular Hemoglobin 30.7 pg Mean Corpuscular Hemoglobin Concent 33.3 g/dl Platelet Count 152 K/uL Mean Platelet Volume 11.7 fL Neutrophils (%) (Auto) 63.8 % Lymphocytes (%) (Auto) 27.1 % Monocytes (%) (Auto) 3.6 % Eosinophils (%) (Auto) 3.6 % Basophils (%) (Auto) 1.0 % Neutrophils # (Auto) 4.37 K/uL Lymphocytes # (Auto) 1.86 K/uL Monocytes # (Auto) 0.25 K/uL Eosinophils # (Auto) 0.25 K/uL Basophils # (Auto) 0.07 K/uL RDW Standard Deviation 43.5 fL RDW Coefficient of Variation 12.9 % Immature Granulocyte % (Auto) 0.9 % Immature Granulocyte # (Auto) 0.06 K/uL Red Blood Cell Morphology Unremarkable Sodium Level 136 mmol/L Potassium Level 3.5 mmol/L Chloride Level 105 mmol/L Carbon Dioxide Level 25 mmol/L Anion Gap 6.0 mmol/L Blood Urea Nitrogen 11 mg/dl Creatinine 0.79 mg/dl Est Creatinine Clear Calc Drug Dose 75.8 ml/min Estimated GFR () 98.4 Estimated GFR (Non- 84.9 BUN/Creatinine Ratio 13.3 Random Glucose 115 mg/dl Calcium Level 8.4 mg/dl Total Bilirubin 0.7 mg/dl Direct Bilirubin 0.3 mg/dl Aspartate Amino Transf (AST/SGOT) 54 U/L Alanine Aminotransferase (ALT/SGPT) 136 U/L Alkaline Phosphatase 579 U/L Total Protein 6.2 gm/dl Albumin 2.6 gm/dl Assessment and Plan Ms. Guy is a pleasant 52 year old lady with a history of stage 4 pancreatic cancer s/p biliary drain placement who presents to [facility] following fevers measured at home. Fever & Elevated liver enzymes - empirically treating with Zosyn, anticipate 14 days total of abx treatment - d/c Vanc after 48 hours, will observe and add in again if she looks to be worsening - bcx negative - no fevers overnight - WCC decreased from 10 to 6.8 - liver enzymes continuing to improve - AST 117 down to 54, ALT 208 down to 136 , Alk phos 744 down to 549 and total bilirubin 1.1 down to 0.7 - Thank you to Dr. Tavera for consult. Recommendations include -> continue antiemetics + maintain hydration + continue abx and advance diet -> if concerns that the tube is no longer functioning, may require transfer [place] [facility] [place] interrogation of biliary drain by interventional radiology MRSA abscess on posterior right thigh - treated at [facility] - no recurrence of symptoms Pancreatic cancer, stage 4 - continue regular meds - oxycodone, pancrelipase and chronic viral suppression with valacyclovir Nausea and vomiting - continue regimen of Decadron, Zofran, and prochlorperazine. - had been on decadron for 2 days prior to admission - continue metoclopramide 5mg q6hr as per pharmacy to aid with unrelenting nausea - added in pepcid 20mg BID to help with symptoms - ?3.1mg 24 hour granisetron patch on d/c to help with future episodes of nausea - will write to PCP to ensure she receives IVF after chemotherapy as she seems particularly susceptible to n/v Generalized weakness - secondary to chemo/infection, will hopefully improve with resolution of infection - slowly improving - OT/PT eval Anemia - chronic, likely related to pancreatic cancer - Hgb 7.8, likely dilutional, will monitor Hyponatremia/Hypokalemia - discontinue IV fluids given adequate oral intake and BP increased - Na 136 and K 3.5 Code status: DNR, is surrogate decision maker if she is incapacitated DVT Prophylaxis: SCDs, PIERRE stockings and 40mg enoxaparin SQ daily Dispo: remains on med/surg, OT/PT evals Resident Physician Supervision Note: I interviewed and examined the patient. Discussed with Dr. Sharp and agree with findings and plan as documented in the note. Any exceptions or clarifications are listed here: None Documented By: Den Steiner nausea coming back - is actually about the same as what she's been feelign since starting chemo. no further fevers, no RUQ pain. d/w GI input appreciated vitals noted, sittign still appaering somewhat nauseated, no pain/respiratory distress. RUQ soft nd nt no guarding immunocompromised fever - w marked rise in LFTs from 08/26 --> admission, certainly biggest concern is on biliary source. she is, however, improving, and stent is not showing signs of obstruction. she notes that prior stent change a few weeks ago was really difficult on her and led to a lot of pain -- she would like to avoid having to go through this if at all possible. d/w pt/ and then later GI. at this point, since stent does appear functioning, she's no longer febrile, cultures are negative, LFTs improving - seems most reasonable to treat as biliary infection but hold off on stent change unless she worsens or has recurrence after off abx -- we all are in agreement with this plan since stent infection could possibly be playing a role but not clear that this is the case, and with unclear need to change stent, immediate risks ( worse pain, nausea, etc) outweigh benefits (possibly playing a role in preventing infection from comign back) -- further, since she was not in severe state with current infection, and knows what to watch for, vigilance w frequent evals, frequent LFTs, etc should catch any worsening at a mild state should it occur nausea - schedule zofran, IV pepcid, continue other antiemetics pancreatic cancer - ongoing outpt management otherwise as above Resident Tracking Resident Involvement: Resident Care Provided Care Provided: Adult Hospital Medicine
[2017-08-30] MEDS: ONDANSETRON INJ 2 MG/ML 2 ML VIAL IV PRN ×3 (07:33→16:17)
--- NOTE | 2017-08-30 07:33 | Medical Student: [facility] ---
Med Student Progress Note Date of Service Aug 30, 2017. Subjective Pt evaluation today including: conversation w/ patient, physical exam Pain: None PO Intake: Improved from admission Voiding: no voiding problems Hospital day 2: Ms. Guy is a 52-year-old woman with a history of Stage 4 pancreatic cancer s/p biliary drain placement who presented to the ED with fevers measured at home. Since admission she has not felt feverish. However, today the pt admits that she never felt feverish at home; it was only measured after noticing a change in biliary drainage. She says that her nausea has been much improved over the last 24 hours and denies vomiting. She has also been able to eat more at each meal and subjectively feels less dehydrated. She slept poorly last night but says that was due to late visitors, not discomfort. Her energy level is unchanged since admission. Gastroenterology came to see her; They noted that she has a non-elevated or suppressed WBC count and did not have a 'markedly' increase in LFTs. They are unsure if this is an obstructive process or an intrahepatic process due to her drain. They request we monitor her LFTs for changes and consider transfer to [facility] if worsening. Review of Systems Constitutional: No fever, No chills Respiratory: No cough, No sputum, No shortness of breath Cardiac: No chest pain, No edema Abdomen: + nausea, + constipation (last BM was 2 days ago), No pain, No vomiting, No diarrhea Female : No dysuria, No urinary frequency Objective Vital Signs Date Time Temp Pulse Resp B/P (MAP) Pulse Ox O2 Delivery O2 Flow Rate FiO2 08/30/17 02:55 36.9 64 18 169/101 (123) 97 Room Air 08/30/17 01:00 Room Air 08/29/17 22:46 36.5 59 18 149/87 (107) 100 Room Air 08/29/17 20:00 Room Air 08/29/17 19:41 36.9 57 16 152/88 (109) 99 Room Air 08/29/17 16:15 100 Room Air 08/29/17 15:21 36.6 58 16 132/83 (99) 100 08/29/17 10:54 36.7 63 16 142/88 (106) 96 08/29/17 08:30 98 Room Air 08/29/17 08:17 36.9 64 16 136/84 (101) 98 Physical Exam General Appearance: WD/WN, no apparent distress ENT: TMs normal (moist), pharynx normal Neck: no adenopathy, thyroid normal Respiratory/Chest: lungs clear, normal breath sounds, no respiratory distress Cardiovascular: regular rate, rhythm, no edema, no gallop, + systolic murmur ( over pulmonic area) Abdomen: normal bowel sounds, non tender (no suprapubic or RUQ tenderness), soft Extremities: non-tender, no pedal edema, no calf tenderness Laboratory Results Last 24 Hours Test 08/30/17 06:33 White Blood Count 6.86 K/uL Red Blood Count 2.54 M/uL Hemoglobin 7.8 g/dL Hematocrit 23.4 % Mean Corpuscular Volume 92.1 fL Mean Corpuscular Hemoglobin 30.7 pg Mean Corpuscular Hemoglobin Concent 33.3 g/dl Platelet Count 152 K/uL Mean Platelet Volume 11.7 fL Neutrophils (%) (Auto) 63.8 % Lymphocytes (%) (Auto) 27.1 % Monocytes (%) (Auto) 3.6 % Eosinophils (%) (Auto) 3.6 % Basophils (%) (Auto) 1.0 % Neutrophils # (Auto) 4.37 K/uL Lymphocytes # (Auto) 1.86 K/uL Monocytes # (Auto) 0.25 K/uL Eosinophils # (Auto) 0.25 K/uL Basophils # (Auto) 0.07 K/uL RDW Standard Deviation 43.5 fL RDW Coefficient of Variation 12.9 % Immature Granulocyte % (Auto) 0.9 % Immature Granulocyte # (Auto) 0.06 K/uL Red Blood Cell Morphology Unremarkable Sodium Level 136 mmol/L Potassium Level 3.5 mmol/L Chloride Level 105 mmol/L Carbon Dioxide Level 25 mmol/L Anion Gap 6.0 mmol/L Blood Urea Nitrogen 11 mg/dl Creatinine 0.79 mg/dl Est Creatinine Clear Calc Drug Dose 75.8 ml/min Estimated GFR () 98.4 Estimated GFR (Non- 84.9 BUN/Creatinine Ratio 13.3 Random Glucose 115 mg/dl Calcium Level 8.4 mg/dl Total Bilirubin 0.7 mg/dl Direct Bilirubin 0.3 mg/dl Aspartate Amino Transf (AST/SGOT) 54 U/L Alanine Aminotransferase (ALT/SGPT) 136 U/L Alkaline Phosphatase 579 U/L Total Protein 6.2 gm/dl Albumin 2.6 gm/dl Assessment and Plan Assessment and Plan: Hospital day 2: Ms. Guy is a 52-year-old woman with a history of Stage 4 pancreatic cancer s/p biliary drain placement who presented to the ED with fevers measured at home. FEVER - Although pt reports measured fevers from home, there has been no documented fever since admission. However due to her immunosuppressed state, the possibility of infection is still present. We investigated her biliary drain, lungs, urinary tract, and abscess for sources. - With history of changes in biliary drainage and elevated liver enzymes, it is possible the infection is in the biliary tree. LFTs are elevated from normal levels but have decreased over the past 24 hours. (See below). Appreciating pharmacy consult, we started Zosyn for Gram - coverage for 48 hours. We will reassess tomorrow. - CXR on admission. does not show lobar opacities or infiltrates suggestive of pneumonia. Today pt continues to deny. shortness of breath, cough, or chest pain. These findings make pneumonia less likely. - Pt continues to deny symptoms of UTI including dysuria and increased urinary frequency. UA on admission only showed trace protein and epithelial cells. This makes UTI unlikely. - Pt continues to deny tenderness, warmth, or pain around previous abscess. Reinfection is unlikely but still a possibility. We started vancomycin because it will cover MRSA if this is the case. ELEVATED LIVER ENZYMES - On 08/29: AST 175, ALT 253, Alk Phos 848. These labs are still elevated on but have decreased since 08/29: AST 54, ALT 136, Alk Phos 579, Direct bilirubin 0.3. Total bilirubin is non elevated at 0.7. - Elevation could be secondary to liver metastases from the pancreatic cancer or an acute obstruction due to possible cholangitis as described above. We will continue to monitor as we administer empiric antibiotics for 48 hours pending workup. ABSCESS - As above - appears to be resolved. PANCREATIC CANCER - Continue home palliative medicines including oxycodone, lorazepam, pancrealipase. NAUSEA AND VOMITING - Pt reports improvement with the addition of metoclopromide. - Continue to offer Zofran and Prochlorperazine. - Encourage liquids and solids. ANEMIA - Likely due to chronic disease and/or chemotherapy, however 08/30 shows Hb of 7.8 (9.3 on 08/29). This could be dilutional due to rehydration over the past 24 hours. HYPONATREMIA AND HYPOKALEMIA - Hyponatremia improving from 132 on admission, now 136. - Hypokalemia is improving from 3.3 to 3.5 today. - Continue normal saline at 125 cc/hour. CONSTIPATION - Last BM was 2 days ago. We offered pt Miralax this morning and will monitor for improvement. DVT PROPHYLAXIS - Continue enoxaparin at 40 mg. - Provide PIERRE stockings. - Encourage pt to ambulate as tolerated.
[2017-08-30] MEDS: PANCREAZE (LIPASE 10,500U) CAP PO SCH ×3 (07:34→16:19)
[2017-08-30 08:00] VITALS: O2SAT 97
[2017-08-30] MEDS: POLYETHYLENE (MIRALAX) 17 GM PACK PO SCH (08:31)
[2017-08-30] MEDS: ENOXAPARIN 40 MG/0.4 ML SYR SQ SCH (08:31)
[2017-08-30] MEDS: DEXAMETHASONE 4 MG TAB PO SCH ×2 (08:36→19:35)
[2017-08-30] MEDS: PANTOprazole SOD 40 MG TAB PO SCH ×2 (08:36→19:35)
[2017-08-30] MEDS: DOCUSATE SODIUM/SENNA 50/8.6MG TAB PO SCH (08:36)
[2017-08-30] MEDS: METOCLOPRAMIDE HCL 5 MG TAB PO PRN ×2 (08:36→14:04)
[2017-08-30] MEDS: OXYCODONE HCL 10 MG TABCR (OXYCONTIN) PO SCH ×2 (09:00→21:00)
[2017-08-30] MEDS: PROCHLORPERAZINE MALEATE 10 MG TAB PO PRN ×2 (14:04→19:35)
[2017-08-30 14:40] VITALS: BP 152/91; PULSE 64; TEMP 36.9; O2SAT 100
[2017-08-30 16:00] VITALS: O2SAT 95
[2017-08-30] MEDS ORDERED: FAMOTIDINE IV INJ 20 MG in DEXTROSE 5% 100ML 100 ML IV SCH (17:30)
[2017-08-30] MEDS ORDERED: ONDANSETRON INJ 2 MG/ML 2 ML VIAL IV SCH (17:30)
--- NOTE | 2017-08-30 17:35 | PROGRESS NOTE ---
DATE: 08/30/2017 SUBJECTIVE: The patient states that her nausea has diminished a little bit today. She has not vomited today yet. This is the worst time of the day she is nauseated. OBJECTIVE: VITAL SIGNS: Normal. She is afebrile. EXTREMITIES: Her posterior right thigh shows a draining MRSA infection, which is packed and healing with some minimal amount of erythema around the lesion but no tenderness and no drainage of pus or fluctuance. LABORATORY DATA: White count is 6.86, hemoglobin 7.8, platelets 152,000. Bilirubin is 0.7, alkaline phosphatase 579 which is decreased, albumin 2.6. IMPRESSION: The patient has metastatic pancreatic cancer to the liver. She has a percutaneous drainage draining internally. This was recently replaced. She just finished her second round of chemotherapy on August 24 and nausea and vomiting started right after that and I think that that is the major component for her nausea and vomiting. She is currently on Reglan, Zofran and Compazine for her nausea. For the MRSA infection in her leg, she is currently receiving Zosyn and vancomycin intravenously, which I agree with and we will continue to monitor her. Hopefully she will need to have her biliary drainage catheter exchanged which would need to be done at [facility] and is uncomfortable for the patient. Her main goal is to get to her son's [place] in [place] [facility] [place] on September 10. We will continue to follow her during her hospital stay.
[2017-08-30] MEDS: FAMOTIDINE IV INJ 20 MG in SYRINGE 3 ML IV SCH (18:00)
[2017-08-30] MEDS: ONDANSETRON INJ 8 MG in DEXTROSE 5% 50ML 50 ML IV SCH (18:00)
[2017-08-30 19:23] VITALS: BP 148/89; PULSE 59; TEMP 36.7; O2SAT 99
[2017-08-30] MEDS ORDERED: FAMOTIDINE 20 MG TAB PO SCH (20:00)
[2017-08-30 23:12] VITALS: BP 144/88; PULSE 64; TEMP 37.4; O2SAT 93
[2017-08-31] VITALS (12 sets, daily range): BP systolic 119–153; BP diastolic 77–96; PULSE 53–77; TEMP 36.3–39.1; O2SAT 96–100
[2017-08-31] MEDS: ONDANSETRON INJ 8 MG in DEXTROSE 5% 50ML 50 ML IV SCH ×4 (00:47→18:01)
[2017-08-31] MEDS: FAMOTIDINE IV INJ 20 MG in SYRINGE 3 ML IV SCH ×2 (06:00→18:01)
[2017-08-31] MEDS: PIPERACILL/TAZOBAC IV 3.375 GM in DEXTROSE 5% 100ML 100 ML IV SCH ×3 (06:02→22:13)
[2017-08-31 06:49] LABS: HEMATOCRIT 25.2 % (37-47); MEAN CELL VOLUME 91.6 fL (80-100); MEAN CORPUSCULAR HEMOGLOBIN 31.3 pg (25-34); MEAN CORPUSCULAR HGB CONC 34.1 g/dl (32-36); MEAN PLATELET VOLUME 11.7 fL (7.4-10.4); PLATELET COUNT 202 K/uL (130-400); RED BLOOD COUNT 2.75 M/uL (4.2-5.4); WHITE BLOOD COUNT 7.42 K/uL (4.8-10.8)
--- NOTE | 2017-08-31 06:59 | Family Medicine Progress Note ---
Progress Note Date of Service Aug 31, 2017. Subjective Pt evaluation today including: conversation w/ patient, conversation w/ family , physical exam, chart review, lab review, review of inpatient medication list Pain: No pain reported PO Intake: Tolerating PO intake Voiding: no voiding problems Ms. Guy states she feels slightly better today. Yesterday she felt "5% like herself" and today is "20% like herself." She is unsure if the new anti-nausea regimen has helped as she recently vomited this morning and does not usually feel nauseous right after she vomits. She states she does not have any chest pain, abdominal pain or shortness of breath. Constitutional: No fever, No chills Respiratory: No cough, No sputum, No wheezing, No shortness of breath Cardiovascular: No chest pain Abdomen: + nausea, + vomiting, No pain All Other Systems: Reviewed and Negative Medications Current Inpatient Medications Medications (Trade) Dose Ordered Sig/Poppy Route Start Time Stop Time Status Last Admin Dose Admin Ioversol (Optiray 320) 100 ml UD PRN IV 08/28/17 21:45 09/01/17 21:44 Enoxaparin Sodium (Lovenox Inj) 40 mg Q24H SQ 08/29/17 09:00 09/28/17 08:59 08/31/17 08:42 40 MG Acetaminophen (Tylenol Tab) 650 mg Q4H PRN PO 08/29/17 01:00 09/28/17 00:59 Al Hydrox/Mg Hydrox/Simethicone (Maalox Max Susp) 15 ml Q4H PRN PO 08/29/17 01:00 09/28/17 00:59 Magnesium Hydroxide (Milk Of Magnesia Susp) 30 ml Q6H PRN PO 08/29/17 01:00 09/28/17 00:59 Polyethylene (Miralax Powder Packet) 17 gm DAILY PRN PO 08/29/17 01:00 09/28/17 00:59 Dexamethasone (Decadron Tab) 4 mg BID PO 08/29/17 08:00 09/01/17 07:59 08/31/17 08:38 4 MG Lorazepam (Ativan Tab) 0.5 mg TID PRN PO 08/29/17 01:00 09/28/17 00:59 08/29/17 20:28 0.5 MG Ondansetron HCl (Zofran Tab) 8 mg Q8 PRN PO 08/29/17 01:00 09/28/17 00:59 08/29/17 11:47 8 MG Oxycodone HCl (Oxycontin Tab) 10 mg Q12 PO 08/29/17 09:00 09/12/17 08:59 Pantoprazole Sodium (Protonix Tab) 40 mg BID PO 08/29/17 08:00 09/28/17 08:59 08/31/17 08:39 40 MG Prochlorperazine Maleate (Compazine Tab) 10 mg Q6 PRN PO 08/29/17 01:00 09/28/17 00:59 08/31/17 08:40 10 MG Senna/Docusate Sodium (Senokot S Tab) 1 tab DAILY PO 08/29/17 08:00 09/28/17 08:59 08/31/17 08:41 1 TAB Valacyclovir HCl (Valtrex Tab) 500 mg DAILY PO 08/29/17 08:00 09/28/17 08:59 08/29/17 07:54 500 MG Amylase/Lipase/ Protease (Pancreaze (Lipase 10,500U) Cap) 1 cap AC PO 08/29/17 06:30 09/28/17 07:59 08/31/17 08:09 1 CAP Polyethylene (Miralax Powder Packet) 17 gm DAILY PO 08/29/17 08:00 09/28/17 08:59 08/31/17 08:39 17 GM Simethicone (Mylicon Chew Tab) 160 mg Q6H PRN PO 08/29/17 01:45 09/28/17 01:44 08/29/17 07:55 160 MG Oxycodone HCl (Roxicodone Immediate Rel Tab) 5 mg Q6H PRN PO 08/29/17 01:00 09/12/17 00:59 Miscellaneous (Iv Fluids Completed) 1 ea PRN PRN N/A 08/29/17 01:15 08/29/18 01:14 Piperacillin Sod/ Tazobactam Sod (Consult) 1 ea UD PRN N/A 08/29/17 01:45 09/28/17 01:44 Metoclopramide HCl (Reglan Tab) 5 mg Q6H PRN PO 08/29/17 15:45 09/28/17 15:44 08/31/17 08:09 5 MG Famotidine 20 mg/ Syringe 5 ml @ 2.5 mls/min Q12H IV 08/30/17 18:00 09/29/17 17:59 08/31/17 06:00 2.5 MLS/MIN Ondansetron HCl 8 mg/Dextrose 54 ml @ 216 mls/hr Q6H IV 08/30/17 18:00 09/29/17 17:59 08/31/17 06:01 216 MLS/HR Piperacillin Sod/ Tazobactam Sod 3.375 gm/Dextrose 115 ml @ 28.75 mls/ hr Q8H IV 08/30/17 22:00 09/10/17 23:59 08/31/17 06:02 28.75 MLS/HR Objective Vital Signs Date Time Temp Pulse Resp B/P (MAP) Pulse Ox O2 Delivery O2 Flow Rate FiO2 08/31/17 07:18 36.3 56 18 151/90 (110) 99 Room Air 08/31/17 07:18 36.3 56 08/31/17 07:15 36.3 58 18 151/90 (110) 99 Room Air 08/31/17 04:19 36.7 53 20 144/82 (102) 98 Room Air 08/31/17 02:31 Room Air 08/30/17 23:12 37.4 64 16 144/88 (106) 93 Room Air 08/30/17 22:24 Room Air 08/30/17 19:23 36.7 59 18 148/89 (108) 99 Room Air 08/30/17 16:00 95 Room Air 08/30/17 14:40 36.9 64 18 152/91 (111) 100 Room Air Physical Exam General Appearance: WD/WN, no apparent distress, + pertinent finding (tearful) Respiratory/Chest: chest non-tender, lungs clear, normal breath sounds, no respiratory distress, no accessory muscle use Cardiovascular: regular rate, rhythm, no edema, no gallop, no JVD, no murmur Abdomen: normal bowel sounds, non tender, soft, no organomegaly, no pulsatile mass Laboratory Results Last 24 Hours Test 08/31/17 06:34 White Blood Count 7.42 K/uL Red Blood Count 2.75 M/uL Hemoglobin 8.6 g/dL Hematocrit 25.2 % Mean Corpuscular Volume 91.6 fL Mean Corpuscular Hemoglobin 31.3 pg Mean Corpuscular Hemoglobin Concent 34.1 g/dl RDW Standard Deviation 43.2 fL RDW Coefficient of Variation 12.9 % Platelet Count 202 K/uL Mean Platelet Volume 11.7 fL Sodium Level 136 mmol/L Potassium Level 3.5 mmol/L Chloride Level 104 mmol/L Carbon Dioxide Level 27 mmol/L Anion Gap 6.0 mmol/L Blood Urea Nitrogen 9 mg/dl Creatinine 0.95 mg/dl Est Creatinine Clear Calc Drug Dose 62.1 ml/min Estimated GFR () 78.7 Estimated GFR (Non- 67.9 BUN/Creatinine Ratio 9.9 Random Glucose 112 mg/dl Calcium Level 9.1 mg/dl Total Bilirubin 0.8 mg/dl Direct Bilirubin 0.4 mg/dl Aspartate Amino Transf (AST/SGOT) 63 U/L Alanine Aminotransferase (ALT/SGPT) 166 U/L Alkaline Phosphatase 724 U/L Total Protein 6.9 gm/dl Albumin 2.9 gm/dl Assessment and Plan Ms. Guy is a pleasant 52 year old lady with a history of stage 4 pancreatic cancer s/p biliary drain placement who presents to [facility] following fevers measured at home. Fever & Elevated liver enzymes - empirically treating with Zosyn, anticipate 14 days total of abx treatment - d/c Vanc after 48 hours, will observe and add in again if she looks to be worsening - bcx negative - no fevers overnight - WCC remains normal at 7.42 - liver enzymes worsened from yesterday - AST 63, ALT 166, Alk phos 724 and total bilirubin 0.8 - still improved overall from admission - Thank you to Dr. Tavera/Dr. Jackman for consult. Recommendations include -> continue antiemetics + maintain hydration + continue abx and advance diet -> if concerns that the drain is no longer functioning, may require transfer to [facility] for interrogation of biliary drain by interventional radiology MRSA abscess on posterior right thigh - treated at [place] - no recurrence of symptoms Pancreatic cancer, stage 4 - continue regular meds - oxycodone, pancrelipase and chronic viral suppression with valacyclovir Nausea and vomiting - continue regimen of Decadron, Zofran, and prochlorperazine. - had been on decadron for 2 days prior to admission - continue metoclopramide 5mg q6hr as per pharmacy to aid with unrelenting nausea - continue pepcid 20mg BID to help with symptoms - continue new zofran regimen of 8mg q8h tabs prn and 8mg IV q6h - scopolamine patch added today to regimen - ?3.1mg 24 hour granisetron patch on d/c to help with future episodes of nausea - will write to PCP to ensure she receives IVF after chemotherapy as she seems particularly susceptible to n/v Generalized weakness - secondary to chemo/infection, will hopefully improve with resolution of infection - slowly improving - OT/PT eval Anemia - chronic, likely related to pancreatic cancer - Hgb 8.6 Hyponatremia/Hypokalemia - discontinue IV fluids given adequate oral intake and BP increased - Na 136 and K 3.5 Code status: DNR, is surrogate decision maker if she is incapacitated DVT Prophylaxis: SCDs, PIERRE stockings and 40mg enoxaparin SQ daily Dispo: remains on med/surg, OT/PT evals Resident Physician Supervision Note: I interviewed and examined the patient. Discussed with Dr. Sharp and agree with findings and plan as documented in the note. Any exceptions or clarifications are listed here: None Documented By: Den Steiner nausea ongoing. vomited last night. worried about ongoing nausea as well. tearful about how her cancer came from nowhere, despite taking good care of herself/eating right/exercising/etc. offered empathy and support. vitals noted nad breathing unlabored no pallor or icterus immunocompromised w presumed biliary infection - ongoing abx, no clear need for stent change, ongoing supportive care metastatic pancreatic cancer - empathy and support, ongoing chemo/etc as outpt nausea - likely multifactorial - continue aggressive management, trial of ativan. possibly trial of haldol vs ?other means of management. added scopolamine patch today as well otherwise as above Resident Tracking Resident Involvement: Resident Care Provided Care Provided: Adult Hospital Medicine
[2017-08-31 07:19] LABS: BUN/CREATININE RATIO 9.9 (10-20); CALCIUM 9.1 mg/dl (8.5-10.1); CREATININE 0.95 mg/dl (0.60-1.20); POTASSIUM 3.5 mmol/L (3.5-5.1)
[2017-08-31] MEDS: OXYCODONE HCL 10 MG TABCR (OXYCONTIN) PO SCH ×2 (07:19→21:00)
[2017-08-31] MEDS: PANCREAZE (LIPASE 10,500U) CAP PO SCH ×3 (08:09→15:49)
[2017-08-31] MEDS: METOCLOPRAMIDE HCL 5 MG TAB PO PRN ×3 (08:09→21:53)
[2017-08-31] MEDS: DEXAMETHASONE 4 MG TAB PO SCH ×2 (08:38→21:00)
[2017-08-31] MEDS: PANTOprazole SOD 40 MG TAB PO SCH ×2 (08:39→21:00)
[2017-08-31] MEDS: POLYETHYLENE (MIRALAX) 17 GM PACK PO SCH (08:39)
[2017-08-31] MEDS: PROCHLORPERAZINE MALEATE 10 MG TAB PO PRN ×2 (08:40→16:49)
[2017-08-31] MEDS: DOCUSATE SODIUM/SENNA 50/8.6MG TAB PO SCH (08:41)
[2017-08-31] MEDS: ENOXAPARIN 40 MG/0.4 ML SYR SQ SCH (08:42)
--- NOTE | 2017-08-31 09:00 | Medical Student: [facility] ---
Med Student Progress Note Date of Service Aug 31, 2017. Subjective Hospital day 3: Ms. Guy is a 52-year-old woman with a history of Stage 4 pancreatic cancer s/p biliary drain placement who presented to the ED with fevers measured at home. She reports feeling "much better today." Yesterday she was "5% me" but today is "20% me." She vomited one time last evening which made her feel much better. She received Pepcid and had a restful sleep. This AM she is sitting up in her chair and on her computer. She says that her ability to do these things are great signs for her. She also had a "well-formed" BM today. She is hoping that after vomiting last night, having a good BM, and receiving the medications that her nausea will be better today and that she will not vomit. Review of Systems Constitutional: No fever Respiratory: No cough, No shortness of breath Cardiac: No chest pain Abdomen: + nausea, + vomiting, No pain Female : No dysuria Objective Vital Signs Date Time Temp Pulse Resp B/P (MAP) Pulse Ox O2 Delivery O2 Flow Rate FiO2 08/31/17 07:18 36.3 56 18 151/90 (110) 99 Room Air 08/31/17 07:18 36.3 56 08/31/17 07:15 36.3 58 18 151/90 (110) 99 Room Air 08/31/17 04:19 36.7 53 20 144/82 (102) 98 Room Air 08/31/17 02:31 Room Air 08/30/17 23:12 37.4 64 16 144/88 (106) 93 Room Air 08/30/17 22:24 Room Air 08/30/17 19:23 36.7 59 18 148/89 (108) 99 Room Air 08/30/17 16:00 95 Room Air 08/30/17 14:40 36.9 64 18 152/91 (111) 100 Room Air Physical Exam General Appearance: WD/WN, no apparent distress (pt appears much more energetic today; making jokes and working on her computer) ENT: TMs normal Respiratory/Chest: lungs clear, normal breath sounds, no respiratory distress Cardiovascular: regular rate, rhythm, no edema, no gallop, no murmur Abdomen: normal bowel sounds, non tender, soft Extremities: no pedal edema, no calf tenderness Neurologic/Psychiatric: alert Laboratory Results Last 24 Hours Test 08/31/17 06:34 White Blood Count 7.42 K/uL Red Blood Count 2.75 M/uL Hemoglobin 8.6 g/dL Hematocrit 25.2 % Mean Corpuscular Volume 91.6 fL Mean Corpuscular Hemoglobin 31.3 pg Mean Corpuscular Hemoglobin Concent 34.1 g/dl RDW Standard Deviation 43.2 fL RDW Coefficient of Variation 12.9 % Platelet Count 202 K/uL Mean Platelet Volume 11.7 fL Sodium Level 136 mmol/L Potassium Level 3.5 mmol/L Chloride Level 104 mmol/L Carbon Dioxide Level 27 mmol/L Anion Gap 6.0 mmol/L Blood Urea Nitrogen 9 mg/dl Creatinine 0.95 mg/dl Est Creatinine Clear Calc Drug Dose 62.1 ml/min Estimated GFR () 78.7 Estimated GFR (Non- 67.9 BUN/Creatinine Ratio 9.9 Random Glucose 112 mg/dl Calcium Level 9.1 mg/dl Total Bilirubin 0.8 mg/dl Direct Bilirubin 0.4 mg/dl Aspartate Amino Transf (AST/SGOT) 63 U/L Alanine Aminotransferase (ALT/SGPT) 166 U/L Alkaline Phosphatase 724 U/L Total Protein 6.9 gm/dl Albumin 2.9 gm/dl Assessment and Plan Assessment and Plan: Hospital day 3: Ms. Guy is a 52-year-old woman with a history of Stage 4 pancreatic cancer s/p biliary drain placement who presented to the ED with fevers measured at home. Reports feeling much better today and is hoping to keep food down. FEVER - Pt continues to deny urinary and pulmonary problems as well as issues with her previous abscess. Fever upon admission is presumed to be from her biliary drain due to the associated findings of drainage change and elevated LFTs. - Pt remains afebrile, but LFTs are slightly increased today (see below). ELEVATED LIVER ENZYMES - LFTs increased over the past 24 hours (08/30: AST 54, ALT 136, Alk Phos 579, Direct bilirubin 0.3. Total bilirubin is non elevated at 0.7). 08/31: AST 63, ALT 166, Alk Phos 724, Total bili 0.8, Direct bili 0.4. - It is presumed that this is either due to drain infection or blockage. GI consultation encouraged transfer [place] [facility] [place] intervention if LFTs worsen. ABSCESS - As above - appears to be resolved. PANCREATIC CANCER - Continue home palliative medicines including oxycodone, lorazepam, pancrealipase. NAUSEA AND VOMITING - Pt vomited one time overnight which relieved her nausea and allowed her to have a good night's sleep. - Pepcid was started last evening. - Continue to offer Zofran, Prochlorperazine, and Metoclopromide. - Encourage liquids and solids. ANEMIA - Likely due to chronic disease and/or chemotherapy. - Acute decrease on 08/30 was likely dilutional, improved today at 7.4 from 6.86. - Continue to monitor for change HYPONATREMIA AND HYPOKALEMIA - Hyponatremia improving from 132 on admission, now 136. - Hypokalemia is improving from 3.3 to 3.5 today. - Continue normal saline at 125 cc/hour. CONSTIPATION - Resolved: Pt complained of no BM since Tuesday, but she had a BM this morning which she says is well formed. DVT PROPHYLAXIS - Continue enoxaparin at 40 mg. - Provide PIERRE stockings. - Encourage pt to ambulate as tolerated. - Pt continues to deny calf tenderness or swelling.
[2017-08-31] MEDS ORDERED: SCOPOLAMINE 1.5 MG TDSY TD SCH (09:30)
[2017-08-31] MEDS ORDERED: LORAZEPAM 2 MG/ML 1 ML VIAL ONE (14:38)
[2017-08-31] MEDS ORDERED: NURSING VERBAL MED ORDER ONE ×2 (14:45→21:30)
[2017-08-31] MEDS ORDERED: LORAZEPAM 2 MG/ML 1 ML VIAL IV STA (15:00)
[2017-08-31] MEDS: CHECK SCOPOLAMINE PATCH PLACEMENT SCH (15:47)
--- NOTE | 2017-08-31 17:47 | PROGRESS NOTE ---
DATE: 08/31/2017 SUBJECTIVE: The patient has had no vomiting today, has had a little bit of nausea which resolved with Ativan. VITAL SIGNS: Normal. LABORATORY: Shows her white count is 7.42, hemoglobin 8.6, platelets 202,000. Chemistry remarkable for albumin of 2.9, bilirubin is 0.8, alkaline phosphatase is 724. She continues on Zosyn. Her vancomycin is being held today. Blood cultures so far continue to be negative. IMPRESSION: The patient is stable. We will continue her IV antibiotics for now and her antiemetics and continue hydration. We will continue to follow the patient during her hospital stay.
[2017-08-31] MEDS: LORAZEPAM 0.5 MG TAB PO PRN (19:20)
[2017-08-31] MEDS ORDERED: ACETAMINOPHEN 325 MG TAB PO ONE (21:45)
[2017-09-01] MEDS: CHECK SCOPOLAMINE PATCH PLACEMENT SCH ×3 (00:07→15:41)
[2017-09-01] MEDS: ONDANSETRON INJ 8 MG in DEXTROSE 5% 50ML 50 ML IV SCH ×4 (00:07→18:25)
[2017-09-01 04:04] VITALS: BP 128/77; PULSE 59; TEMP 37.2; O2SAT 98
[2017-09-01] MEDS: PIPERACILL/TAZOBAC IV 3.375 GM in DEXTROSE 5% 100ML 100 ML IV SCH ×2 (06:28→14:26)
[2017-09-01] MEDS: FAMOTIDINE IV INJ 20 MG in SYRINGE 3 ML IV SCH ×2 (06:34→18:24)
[2017-09-01] MEDS: PANCREAZE (LIPASE 10,500U) CAP PO SCH ×3 (07:31→16:38)
[2017-09-01 07:40] LABS: HEMATOCRIT 26.8 % (37-47); MEAN CELL VOLUME 91.5 fL (80-100); MEAN CORPUSCULAR HEMOGLOBIN 31.4 pg (25-34); MEAN CORPUSCULAR HGB CONC 34.3 g/dl (32-36); RED BLOOD COUNT 2.93 M/uL (4.2-5.4); WHITE BLOOD COUNT 7.89 K/uL (4.8-10.8)
[2017-09-01 07:41] LABS: MEAN PLATELET VOLUME 12.1 fL (7.4-10.4); PLATELET COUNT 201 K/uL (130-400)
[2017-09-01 07:50] VITALS: BP 142/92; PULSE 64; TEMP 36.8; O2SAT 97
[2017-09-01 07:55] LABS: CALCIUM 9.2 mg/dl (8.5-10.1); CREATININE 1.05 mg/dl (0.60-1.20); POTASSIUM 3.8 mmol/L (3.5-5.1)
[2017-09-01] MEDS: POLYETHYLENE (MIRALAX) 17 GM PACK PO SCH (08:51)
[2017-09-01] MEDS: PANTOprazole SOD 40 MG TAB PO SCH (08:51)
[2017-09-01] MEDS: DOCUSATE SODIUM/SENNA 50/8.6MG TAB PO SCH (08:51)
[2017-09-01] MEDS: OXYCODONE HCL 10 MG TABCR (OXYCONTIN) PO SCH ×2 (08:52→08:56)
[2017-09-01] MEDS: ENOXAPARIN 40 MG/0.4 ML SYR SQ SCH (08:52)
[2017-09-01] MEDS ORDERED: VANCOMYCIN CONSULT ACTIVE PRN (09:45)
--- NOTE | 2017-09-01 09:51 | Pharmacy Progress Note ---
Pharmacy Abx Dose Short Note Date of Service Sep 01, 2017. Assessment & Plan Risk Factors for Resistance * Hospitalization for 48 hours or more within the past 90 days * Immunocompromised (chemotherapy: cisplatin + etoposide 08/24) * History of infection with a multidrug-resistant organism: MRSA R thigh abscess * Antimicrobial use within the last 90 days Assessment & Plan Assessment * 52 year old female admitted 08/29/17 for fever, nausea and vomiting. * She has a h/o stage 4 pancreatic CA w/ recent chemotherapy in the past week. No neutropenia noted on admission labs. * Recently admitted to [facility] 08/12 thru 08/25 for MRSA abscess of R thigh * On admission pt initiated on Vancomycin/Zosyn empirically - after 48 hours - Vancomycin was discontinued and Zosyn continued * Since discontinuation of Vancomycin - pt febrile and worsening * Will restart Vancomycin dosing today in the setting of worsening NURIS ( baseline Scr noted to be ~0.6-.07 mg/dL) Plan Vancomycin IV * Loading dose: 1500 mg (22 mg/kg) * Maintenance dose: 1000 mg IV (15 mg/kg) every 14 hours * Goal trough level for MRSA skin/skin structure infxn +/- intraabd infxn: 15 to 20 mcg/mL until results of C&S known * This dosing is aggressive and should be reduced if Scr does not improve or U/ O decreases further * Trough level ordered for 09/03 prior to the 0400 dose Piperacillin/tazobactam * Continue 3.375 g IV extended infusion every 8 hours for CrCl greater than 20 mL/min Pharmacy will continue to follow and will adjust dose/frequency as necessary. Thank you.
[2017-09-01] MEDS ORDERED: VANCOMYCIN INJ 1,500 MG in SODIUM CHLORIDE 0.9% 500ML 500 ML IV ONE (10:00)
[2017-09-01] MEDS ORDERED: PIPE1INJ11 IV (10:09)
[2017-09-01] MEDS ORDERED: VANC1CAP3 IV (10:17)
[2017-09-01] MEDS ORDERED: METO-157 PO (10:18)
[2017-09-01] MEDS ORDERED: FAMO20TA11 IV (10:18)
[2017-09-01] MEDS ORDERED: SCOP1.5D2 TD (10:18)
[2017-09-01] MEDS ORDERED: LVNIS40 SQ (10:18)
--- NOTE | 2017-09-01 10:23 | Discharge Instructions ---
Discharge Instructions Date of Service Sep 01, 2017. Admission Reason for Admission: Fever, Pancreatic Cancer Discharge Discharge Diagnosis / Problem: Sepsis secondary to biliary source Discharge Goals Goal(s): Decrease discomfort, Improve function Activity Recommendations Activity Level: Up Ad Sariah . Additional Information Patient informed of condition: Yes Advance Directives: Yes DNR: Yes Level of Care: Skilled Communicable Disease: No Prognosis: Deteriorating Guzman Catheter: No Instructions / Follow-Up Instructions / Follow-Up Ms. Guy was admitted to [facility] due to fevers on a background of stage 4 pancreatic cancer with a biliary drain in place. Her likely source of infection was her biliary drain given that her liver enzymes and bilirubin kera in an obstructive pattern. She was treated with IV Zosyn and Vanc and improved, but deteriorated again with another rise in her liver enzymes, and as such, she will be transferred to [facility] for possible change/removal of biliary drain by interventional radiology. Current Hospital Diet Patient's current hospital diet: Regular Diet Discharge Diet Recommended Diet: Regular Diet Pending Studies Studies pending at discharge: no List of pending studies: Blood cultures Medical Emergencies . Who to Call and When: Medical Emergencies: If at any time you feel your situation is an emergency, please call 911 immediately. . Non-Emergent Contact Non-Emergency issues call your: Primary Care Provider . . "Provider Documentation" section prepared by Jeovany Sharp. . Core Measure Problem Core Measures: None
--- NOTE | 2017-09-01 10:40 | Discharge Summary ---
Discharge Summary Date of Service Sep 01, 2017. Discharge Summary Admission Date: Aug 29, 2017 at 00:58 Discharge Date: Sep 01, 2017 Discharge Disposition: Acute care facility Principal Diagnosis: Sepsis secondary to biliary source Problems/Secondary Diagnoses: (1) Asthma, Unspecified Status: Chronic (2) Depressive Disorder Nec Status: Chronic Immunizations: Have You Had Influenza Vaccine: Unknown History of Tetanus Vaccine?: Unknown History of Pneumococcal: Unknown History of Hepatitis B Vaccine: Unknown Procedures: CT SCAN OF THE ABDOMEN AND PELVIS WITH IV CONTRAST - 08/28 CLINICAL HISTORY: Nausea and vomiting. Pancreatic cancer. Fever. Biliary drain. COMPARISON STUDY: Abdominal CT dated 06/28/2017. TECHNIQUE: Following the IV administration of 93 cc of Optiray 320, CT scan of the abdomen and pelvis is performed from the lung bases to the proximal femora. Images are reviewed in the axial, sagittal, and coronal planes. IV contrast was administered without complication. A dose lowering technique was utilized adhering to the principles of ALARA. CT DOSE: 292.92 mGy.cm FINDINGS: Lung bases: The heart is enlarged and without pericardial effusion. The lung bases are clear noting dependent atelectasis. An 8 mm nodule in the left breast seen on image #3 is unchanged. Liver: The contrast-enhanced liver is normal in size and contour. Hepatic attenuation is heterogeneous. A biliary drain is new from previous. This extends percutaneous from the right lobe and terminates in the duodenum. There is mild to moderate intrahepatic biliary ductal dilatation. Pneumobilia is observed. The hepatic veins and portal veins are patent. There has been progression of hepatic metastatic disease as compared to 06/28/2017. A lesion in the right lobe seen on image #147 measures 3.1 cm (previously measured 1.6 cm). A 2.0 cm low-attenuation lesion in the inferior right lobe seen on image #196. A 1.2 cm lesion in the left lobe is suggested on image #120. These were not seen previously. Gallbladder: Unremarkable. Spleen: Normal in size and attenuation. Pancreas: There is an ill-defined mass lesion again suggested involving the pancreatic head. The pancreas body and tail are normal in appearance. The pancreatic duct is prominent measuring up to 4 mm in diameter. Adrenal glands: Unremarkable. Kidneys: The contrast enhanced kidneys appear enlarged and without hydronephrosis. The kidneys enhance heterogeneously. A 2.3 cm low-attenuation focus is again suggested in the right kidney on image #135. Abdominal vasculature: The abdominal aorta is normal in course and caliber. Bowel: The small bowel and colon are normal in course and caliber. The appendix is not visualized. Peritoneum: There is no intraperitoneal free air. Trace free fluid is seen in the cul-de-sac. Lymphadenopathy: Mildly enlarged retroperitoneal lymph nodes are suggested. A node on image #176 measures 1.2 cm in short axis. Pelvic viscera: The bladder, uterus, and adnexa are normal as visualized. Skeletal structures: The skeletal structures are osteopenic. There is mild lumbosacral spondylosis. No lytic or blastic lesions are seen. IMPRESSION: 1. A percutaneous biliary drain is new from 06/28/2017. This extends from the inferior right lobe to the duodenum. 2. There is [id number] intrahepatic biliary ductal dilatation which has decreased from previous. Pneumobilia suggests patency of the drain. 3. Progression of hepatic metastatic disease as compared to 06/28/2017. 4. An ill-defined mass lesion is again seen in the pancreatic head. This is not delineated. 5. The kidneys appear enlarged and demonstrate heterogeneous perfusion. Correlation with clinical findings and urinalysis will be required. 6. A 2.2 cm low-attenuation lesion is again suggested in the interpolar right kidney and similar to previous. 7. Mildly enlarged retroperitoneal lymph nodes are identified. 8. There is a small volume of free fluid in the pelvis. 9. Cardiomegaly. Consultations: GI - Dr. Tavera and Dr. Jackman Medication Reconciliation New Medications: Famotidine (Pepcid) 20 Mg Tab 20 MG IV BID for 1 Day, TAB Metoclopramide (Reglan) 10 Mg Tab 5 MG PO Q6H, #6 TAB NAUSEA Piperacillin Sodium-Tazobactam (Zosyn) 1 Inj Inj 4.5 GM IV QID, #1 DOSE Scopolamine (Transderm-Scop) 1 Mg/3 Days Dis 3 MG TD Q72H for Nausea, #1 PATCH Vancomycin Hcl (Vancomycin) 250 Mg Cap 1.5 GM IV DAILY for 1 Day Enoxaparin (Enoxaparin Sodium) 40 Mg/0.4 Ml Inj 40 MG SQ Q24H for 30 Days Continued Medications: Dexamethasone (Decadron) 4 Mg Tab 4 MG PO BID for 7 Days Lorazepam (Lorazepam) 0.5 Mg Tab 0.5 MG PO TID PRN for Anxiety Ondansetron (Ondansetron HCl) 8 Mg Tab 8 MG PO Q8 PRN for Nausea or Vomiting Oxycodone Hcl (Oxycodone Hcl Er) 10 Mg Tab 10 MG PO Q12 Oxycodone HCl (Oxycodone HCl) 5 Mg Tab 5 MG PO Q6 Pancrelipase (Lipase-Protease- (Creon) 1 Cap Cap 1 CAP PO AC Pantoprazole (Pantoprazole Sodium) 40 Mg Tab 40 MG PO BID Polyethylene (Polyethylene Glycol 3350) 527 Gm Soln 17 GM PO DAILY HOLDS IF BOWELS ARE LOOSE Prochlorperazine Maleate (Prochlorperazine Maleate) 10 Mg Tab 10 MG PO Q6 PRN for Nausea or Vomiting Sennosides-Docusate Sodium (Ra Senna Plus 8.6-50 mg) 1 Tab Tab 1 TAB PO DAILY Simethicone (Gas Relief) 180 Mg Cap 180 MG PO PRN UD Valacyclovir (Valtrex) 500 Mg Tab 500 MG PO DAILY, TAB PATIENT ONLY TO TAKE WHEN THEY HAVE OUTBREAKS OF HERPES Discharge Exam Ms. Guy reports she feels about the same today as yesterday. Her nausea has improved, and she has not had any recent episodes of vomiting, but she remains with weakness and malaise. She denies chest pain, shortness of breath, and abdominal pain. She states her biliary drain output slowed down yesterday, but that she had a large amount of drainage overnight. Review of Systems: Constitutional: + fever, No chills Respiratory: No cough, No sputum, No wheezing Cardiovascular: No chest pain Abdomen: No pain, No vomiting Physical Exam: General Appearance: WD/WN, no apparent distress Respiratory/Chest: chest non-tender, lungs clear, normal breath sounds, no respiratory distress, no accessory muscle use Cardiovascular: regular rate, rhythm, no edema, no gallop, no JVD, no murmur , normal peripheral pulses Abdomen / GI: normal bowel sounds, non tender, soft, no organomegaly, no pulsatile mass, + pertinent finding (biliary drain in RUQ with dressing over top , c/d/i) Hospital Course Ms. Guy is a very pleasant 52 year old lady with a background history of stage 4 pancreatic cancer s/p biliary drain who presented to [facility] with a 3 day history of subjective fevers measured at home as well as change in color of the drainage from her biliary drain. Below is a summary of her hospital course: 1) Fever - 08/28 - Bcx negative, CXR negative - Liver enzymes elevated in an obstructive pattern, likely source of infection was deemed to be biliary - GI consulted (Dr. Tavera and Dr. Jackman both saw her ) - she was treated with zosyn and vancomycin and she improved clinically, and her liver enzymes dropped - vancomycin was then d/nicky - last night, she began spiking fevers, as high as 39.1, her drain output increased, and her liver enzymes kera to her prior admission levels (total bilirubin 2.1, AST 117, ALT 231, Alk phos 834) - decision was made to transfer her to [place] for possible interrogation/ replacement of biliary drain - prior to restarting vancomycin, a second set of blood cultures was obtained 2) Unrelenting nausea - her nausea was not well controlled with her home regimen of zofran, compazine and decadron - added in Pepcid, scopolamine patch and ativan prn for nausea to aid with symptoms - this seemed to be the most effective for her - caution with combination of narcotics and ativan as patient became disoriented - on d/c - recommend 1) 3.1mg 24 hour granisetron patch 2) IVF after chemotherapy to prevent dehydration post vomiting 3) Metastatic Pancreatic cancer - continue her regular medications - oxycodone and pancrelipase Resident Physician Supervision Note: I interviewed and examined the patient. Discussed with Dr. Sharp and agree with findings and plan as documented in the note. Any exceptions or clarifications are listed here: None Documented By: Den Steiner fever last night, LFTs trending upward and bilirubin more than doubled. d/w GI and in agreement needs drain eval'd - no IR here. dr sharp [place] [facility] [place] pt set up for transfer vitals noted, tearful but no phsyical distress no visual jaundice mets pancreatic cancer w biliary drain and fever/elevated LFTs - concern on biliary infection - w worsening, repeat blood cultures taken and vanco started, transfer to [place] for more definitive management nausea - multifactorial approach. ativan actually helped reasonably well - would continue prn nausea, give consideration to marinol. stable for BLS ground - not septic/shock/etc - but does require urgent tertiary intervention to prevent these sequellae from occuring Total Time Spent: Greater than 30 minutes This includes examination of the patient, discharge planning, medication reconciliation, and communication with other providers. Discharge Instructions Please refer to the electronic Patient Visit Report (Discharge Instructions) for additional information. Additional Copies To Carla Carolina C.R.N.P.
[2017-09-01 12:41] VITALS: BP 142/92; PULSE 64; TEMP 36.8; O2SAT 97
--- NOTE | 2017-09-01 13:57 | DIAGNOSTIC IMAGING REPORT ---
BILIARY ABDOMEN LIMITED CLINICAL HISTORY: increased liver enzymes and drainage pain TECHNIQUE: Ultrasound COMPARISON STUDY: 06/28/2017 FINDINGS: Interval placement of a drainage catheter in the region of the pancreatic head within the common bile duct. Heterogeneous pancreatic head at 2.3 cm possibly relating to the previous described mass. Slight increase in pancreatic ductal prominence to 4 mm. Liver remains slightly heterogeneous. 3 isoechoic nodules are identified measuring to 1.3 cm. Small amount of debris within the common bile duct combine with the drainage catheter. Sludge remains within the gallbladder with a trace amount of free fluid surrounding the gallbladder lumen. IMPRESSION: 1. Interval placement of a drainage catheter in the common duct. 2. Slight increase in pancreatic ductal diameter to 4 mm. 3. Several small nonspecific nodules of the liver measuring up to 1.3 cm. 4. Probable pancreatic mass measuring up to 2.3 cm. 5. Trace debris within the common bile duct 6. Gallbladder sludge with a trace amount of pericholecystic fluid The above report was generated using voice recognition software. It may contain grammatical, syntax or spelling errors. Electronically signed by: Agusto Gonzalez M.D. 09/01/2017 1:56 PM Dictated Date/Time: 09/01/2017 1:51 PM
[2017-09-01 15:08] VITALS: BP 153/92; PULSE 54; TEMP 36.9; O2SAT 100
[2017-09-01] MEDS: LORAZEPAM 0.5 MG TAB PO PRN (15:41)
[2017-09-01 16:00] VITALS: O2SAT 100
[2017-09-01] MEDS: PROCHLORPERAZINE MALEATE 10 MG TAB PO PRN (16:39)
--- NOTE | 2017-09-01 17:38 | GASTROENTEROLOGY PROGRESS NOTE ---
DATE: 09/01/2017 GASTROENTEROLOGY INPATIENT PROGRESS NOTE SUBJECTIVE: Mrs. Guy was examined and chart reviewed. The last couple days has found her to have nausea and vomiting with a flow upper trend of her liver test. Today, her serum chemistries showed a rise of bilirubin to 2.1 from 0.8 yesterday and a direct fraction of 1.3. In addition, AST was up to 117, ALT 231, alkaline phosphatase 834. BUN and creatinine were 11 and 1.0 today. The patient has a normal white blood cell count of 7.9, hemoglobin stable at 9.2, and platelets of 201,000. INR 1.0 on August 29. Urinalysis does not show any infection. Microbiology showed no growth to date from blood cultures on August 28. Blood cultures were obtained earlier this morning (09/01/2017) and are pending. The patient describes that she had been off the vanco for 1 day and in that period of time she developed a temperature of 102 degrees Fahrenheit. Last evening at 10:00 p.m., the patient had a temperature of 39.1. This did diminish with Tylenol and she has remained afebrile for the past 16 hours. PHYSICAL EXAMINATION: VITAL SIGNS: Heart rate 54, blood pressure 153/92, respirations 18, 100% on room air. GENERAL: The patient is awake, alert and oriented. Urine is perhaps slightly darker than it had been. HEENT: Sclerae are anicteric. Oral mucosa moist. HEART: Normal S1, S2. LUNGS: Clear to auscultation. ABDOMEN: Soft, without rebound or guarding. EXTREMITIES: Without clubbing, cyanosis or edema. RECTAL: Deferred. IMPRESSION AND PLAN: The patient with metastatic pancreatic cancer to the liver with a recently exchanged percutaneous biliary drainage that is internalized. This was performed in mid August, approximately August 18. Based on the arising trend of LFTs and the fever yesterday, plans are to transfer the patient down to [place] for which she has a bed and transportation plans are being made. We interrogate the stent and changed as necessary. She did undergo an abdominal ultrasound earlier this afternoon. There is a trace debris noted in the common bile duct with gallbladder sludge and trace pericholecystic fluid (albumin today is 2.8). The patient is currently back on Zosyn and vancomycin IV. We will await blood cultures from today. The patient is awaiting transfer to [facility]. All questions answered.
[2017-09-01 19:22] VITALS: BP 131/86; PULSE 60; TEMP 36.8; O2SAT 98
[2017-09-01] MEDS ORDERED: VANCOMYCIN INJ 1,000 MG in SODIUM CHLORIDE 0.9% 250ML 250 ML IV SCH (21:00)
[2017-09-02] MEDS ORDERED: VANCOMYCIN INJ 1,000 MG in SODIUM CHLORIDE 0.9% 250ML 250 ML IV SCH ×2
[2017-09-03] MEDS ORDERED: VANCOMYCIN TROUGH SCH (03:30)
== END 2017-09-01 20:14 | disposition short-term general hospital (02) ==
LOC: C.EDB 20:43 → C.4E 08-29 00:58 → ENRESERV 08-29 01:05
PROVIDERS: ADMIT Student in an Organized Health Care Education/Training Program; ATTEND Family Medicine
DX: A41.9 Sepsis, unspecified organism (principal); R50.9 Fever, unspecified; C25.9 Malignant neoplasm of pancreas, unspecified; C78.7 Secondary malignant neoplasm of liver and intrahepatic bile duct; C79.89 Secondary malignant neoplasm of other specified sites; Z92.21 Personal history of antineoplastic chemotherapy; F32.9 Major depressive disorder, single episode, unspecified; Z98.51 Tubal ligation status

== ENCOUNTER → 2017-10-20 | Outpatient (CLI) | payer OTHER ==
[~2017-10-20] MED LIST changes: +ACTUDL10 JT; +DOCU5LIQ JT; +ENOX40IN SQ; +LORA-741 JT; +METO25TA56 JT; +ONDA4TAB10 SL; +OXYC10SO JT; +PANT40TA PO; -VALA500T60 PO; +[UNRECOGNIZED DRUG - CODE] JT
[2017-10-20 16:18] LABS: BASO % 0.2 %; BASO ABS # 0.04 K/uL (0-0.2); EOS % 1.5 %; EOS ABS # 0.24 K/uL (0-0.5); HEMATOCRIT 29.8 % (37-47); HEMOGLOBIN 10.6 g/dL (12.0-16.0); IG# 0.22 K/uL (0.00-0.02); LYMPH ABS # 1.46 K/uL (1.2-3.4); MEAN CELL VOLUME 91.1 fL (80-100); MEAN CORPUSCULAR HEMOGLOBIN 32.4 pg (25-34); MEAN CORPUSCULAR HGB CONC 35.6 g/dl (32-36); MEAN PLATELET VOLUME 12.1 fL (7.4-10.4); MONO % 10.9 %; MONO ABS # 1.77 K/uL (0.11-0.59); NEUT ABS # 12.44 K/uL (1.4-6.5); PLATELET COUNT 293 K/uL (130-400); RED CELL DISTRIBUTION WIDTH SD 60.9 fL (36.4-46.3); WHITE BLOOD COUNT 16.17 K/uL (4.8-10.8)
[2017-10-20 16:26] LABS: BLOOD UREA NITROGEN 17 mg/dl (7-18); CALCIUM 9.4 mg/dl (8.5-10.1); CARBON DIOXIDE 27 mmol/L (21-32); GLUCOSE 145 mg/dl (70-99); SODIUM 130 mmol/L (136-145)
== END | disposition home or self-care (01) ==
LOC: C.LABSPEC 15:02
PROVIDERS: ATTEND Surgery
DX: C25.9 Malignant neoplasm of pancreas, unspecified (principal)

== ENCOUNTER 2017-10-30 14:57 | Inpatient (IN) | payer OTHER ==
[~2017-10-30] VITALS: Ht 160 cm; Wt 59.7 kg
--- NOTE | 2017-10-30 15:36 | EMERGENCY ROOM VISIT NOTE ---
History Report prepared by Duc: Prince Castillo Under the Supervision of: Dr. Jorgito Parsons M.D. First contact with patient: 15:27 Chief Complaint: DEHYDRATION Stated Complaint: CANCER PATIENT, DEHYDRATION History of Present Illness The patient is a 52 year old female with a history of atrial fibrillation who presents to the Emergency Room with complaints of a persistent illness that started 4 days ago. She says that she has pancreatic cancer, and just got out of [facility] 4 days ago. Per the patient's , the patient was there for pain control and a biliary tube exchange. Ever since the patient left there, she has been having nausea, with episodes of vomiting and diarrhea. She says that she has not been able to keep down anything. The patient had a home IV set up yesterday, and has been taking Zofran and Reglan, but they are not helping much, and she feels miserable and dehydrated. The patient notes no new notable pain. She denies any urinary symptoms, constipation or black stools. She also denies any cough or runny nose. The patient has no noted history of heart failure. Source of History: patient, spouse/significant other Onset: 4 days ago Position: other (global - illness) Quality: other (has pancreatic cancer) Associated Symptoms: + nausea, + vomiting, + diarrhea, No cough (or runny nose), No melena, No hematochezia, No urinary symptoms Note: Feels dehydrated. Denies any new notable pain, denies constipation. Review of Systems See HPI for pertinent positives & negatives. A total of 10 systems reviewed and were otherwise negative. Past Medical & Surgical Medical Problems: (1) Abdominal pain (2) Acute gallstone pancreatitis (3) Asthma, Unspecified (4) Asthma, Unspecified (5) Depressive Disorder Nec (6) Fever (7) Hand laceration (8) Hemoperitoneum (9) Ileus (10) Ileus (11) Ovarian cyst (12) Pancreatic cancer (13) Renal cyst (14) Small bowel obstruction (15) Small bowel obstruction (16) Syncope Surgical Problems: (1) History of appendectomy (2) S/P tubal ligation (3) Status post endometrial ablation Family History Patient reports no known family medical history. Social History Smoking Status: Never Smoker Alcohol Use: occasionally Drug Use: none Marital Status: Housing Status: lives with family Occupation Status: employed Current/Historical Medications Scheduled Docusate Sodium (Docusate Sodium), 100 MG JT BID Escitalopram Oxalate (Escitalopram Oxalate), 10 MG JT QAM Fentanyl (Fentanyl), 1 PATCH TD Q72 HOURS Lisinopril (Qbrelis), 5 MG JT QAM Metoclopramide HCl (Metoclopramide HCl), 10 MG JT QID Metoprolol Tartrate (Lopressor) (Lopressor), 25 MG JT AMPM Pantoprazole (Protonix), 40 MG PO QAM Scheduled PRN Acetaminophen (Acetaminophen Extra Stren), 1,000 MG JT Q8 PRN for Pain Lorazepam (Ativan), 0.5 MG JT TID PRN for Anxiety Ondasetron Odt (Zofran Odt), 4 MG SL Q6H PRN for Nausea or Vomiting Oxycodone Oral Soln (Roxicodone Oral Soln), 2.5-10 ML JT Q6 PRN for Pain Allergies Coded Allergies: No Known Allergies (Unverified , 10/30/17) Physical Exam Vital Signs Date Time Temp Pulse Resp B/P (MAP) Pulse Ox O2 Delivery O2 Flow Rate FiO2 10/30/17 17:46 145 110/87 10/30/17 16:57 142 10/30/17 16:55 130 18 126/80 100 Room Air 10/30/17 15:20 36.0 93 18 91/63 98 Room Air Physical Exam GENERAL: Patient is chronically unwell appearing, cachectic appearing, dehydrated appearing, and in mild distress. HEENT: No acute trauma, normocephalic atraumatic, mucous membranes dry and cracked no nasal congestion, no scleral icterus. NECK: No stridor, no adenopathy, no meningismus, trachea is midline. LUNGS: No dyspnea. Clear to auscultation and equal bilaterally. No wheeze, no rhonchi. HEART: Regular rate and rhythm. No murmurs, rubs, gallops appreciated. ABDOMEN: Biliary drain in right upper quadrant, G/J tubes in left upper quadrant , midline covered surgical incision. Soft, nontender, bowel sounds positive, no masses appreciated, no peritonitis. BACK: No midline tenderness, no CVA tenderness EXTREMITIES: Normal motion all extremities, no cyanosis, no edema. NEUROLOGIC: Alert and oriented, no acute motor or sensory deficits, no focal weakness, cranial nerves grossly intact. SKIN: Poor skin turgor. No rash, no jaundice, no diaphoresis. Medical Decision & Procedures Laboratory Results 10/30/17 16:10 Red Blood Count 3.56, Mean Corpuscular Volume 91.0, Mean Corpuscular Hemoglobin 31.2, Mean Corpuscular Hemoglobin Concent 34.3, Mean Platelet Volume 10.0 10/30/17 16:10 Test 10/30/17 16:10 White Blood Count 19.01 K/uL (4.8-10.8) Red Blood Count 3.56 M/uL (4.2-5.4) Hemoglobin 11.1 g/dL (12.0-16.0) Hematocrit 32.4 % (37-47) Mean Corpuscular Volume 91.0 fL (80-100) Mean Corpuscular Hemoglobin 31.2 pg (25-34) Mean Corpuscular Hemoglobin Concent 34.3 g/dl (32-36) Platelet Count 382 K/uL (130-400) Mean Platelet Volume 10.0 fL (7.4-10.4) RDW Standard Deviation 53.5 fL (36.4-46.3) RDW Coefficient of Variation 16.0 % (11.5-14.5) Neutrophils % (Manual) 70.5 % Lymphocytes % (Manual) 19.1 % Monocytes % (Manual) 8.7 % Eosinophils % (Manual) 1.7 % Neutrophils # (Manual) 13.40 K/uL (1.4-6.5) Total Absolute Neutrophils 13.40 K/uL (1.4-6.5) Lymphocytes # (Manual) 3.63 K/uL (1.2-3.4) Total Absolute Lymphocytes 3.63 K/uL (1.2-3.4) Monocytes # (Manual) 1.65 K/uL (0.11-0.59) Eosinophils # (Manual) 0.32 K/uL (0-0.5) Anion Gap 10.0 mmol/L (3-11) Est Creatinine Clear Calc Drug Dose 65.1 ml/min Estimated GFR () 90.0 Estimated GFR (Non- 77.7 BUN/Creatinine Ratio 31.1 (10-20) Calcium Level 9.9 mg/dl (8.5-10.1) Phosphorus Level 3.6 mg/dl (2.5-4.9) Magnesium Level 2.0 mg/dl (1.8-2.4) Total Bilirubin 0.5 mg/dl (0.2-1) Direct Bilirubin 0.2 mg/dl (0-0.2) Aspartate Amino Transf (AST/SGOT) 30 U/L (15-37) Alanine Aminotransferase (ALT/SGPT) 37 U/L (12-78) Alkaline Phosphatase 383 U/L (45-117) Total Protein 7.9 gm/dl (6.4-8.2) Albumin 3.0 gm/dl (3.4-5.0) Lipase 242 U/L (73-393) Laboratory results as reviewed by me. Medications Administered Medications (Trade) Dose Ordered Sig/Poppy Route Start Time Stop Time Status Last Admin Dose Admin Sodium Chloride 1,000 ml @ 999 mls/hr Q1H1M STAT IV 10/30/17 15:37 10/30/17 16:37 DC 10/30/17 16:10 999 MLS/HR Ondansetron HCl (Zofran Inj) 4 mg STK-MED ONCE .ROUTE 10/30/17 16:14 10/30/17 16:15 DC 10/30/17 16:18 4 MG Hydromorphone HCl (Dilaudid Inj) 1 mg NOW STAT IV 10/30/17 16:43 10/30/17 16:44 DC 10/30/17 16:57 1 MG Sodium Chloride 1,000 ml @ 999 mls/hr Q1H1M STAT IV 10/30/17 16:51 10/30/17 17:51 10/30/17 16:57 999 MLS/HR Metoprolol Tartrate (Lopressor Iv) 5 mg NOW STAT IV 10/30/17 17:24 10/30/17 17:25 DC 10/30/17 17:46 5 MG ED Course 1529: The patient was evaluated in room C2B. A complete history and physical exam was performed. 1615: The patient is having increased nausea, and we will give her Zofran. 1643: I reevaluated the patient and she is having increased work of breathing. 1651: I reevaluated the patient and she notes she is still feeling weak and tired and does not feel she will manage well if she goes home. She is getting a mg of Dilaudid right now. She will be evaluated for further treatment and she is agreeable with that plan. 1705: I discussed the patient with Dr. Lenny Zamora metal cut off saw tender - she will evaluate the patient for further treatment. Medical Decision Differential: Sepsis, Infectious (UTI/Pneumonia/Meningitis/etc), Metabolic/ Electrolyte Abnormality, Cardiac, Dehydration, Anemia, Hepatic, Endocrine, Toxicologic, Neurologic, amongst other pathologies entertained. 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 Has spent long extended stays in hospital since and just our of [place] a week ago. Persistently worsening nausea, vomiting, diarrhea. Pain moderately controlled with fentanyl patch and oxy po. She has been using biliary drain on and off from discharge, attaching it when pain becomes severe. Severely dehydrated on arrival and given 2 L NSS bolus. Still quite weak and dehydrated after this requiring IV narcotics. She has wish to come in to hospital to better optimize her care and discuss palliative options as chemo not successful and she is not surgical candidate. While in ED flipped to Afib for which Lopressor given. Noted to have increasing pain which I suspect is due to biliary drain being off and increased hydration. Pain meds given and will get connection to this for drainage with hospitalist to bring her in for further management. Patient and on board with this plan. Medication Reconcilliation Current Medication List: was personally reviewed by me Blood Pressure Screening Patient's blood pressure: Normal blood pressure Consults Time Called: 1700 Consulting Physician: Dr. Lenny Zamora metal cut off saw tender Returned Call: 1705 I discussed the patient with Dr. Lenny Zamora metal cut off saw tender - she will evaluate the patient for further treatment. Impression Primary Impression: Dehydration Additional Impressions: Failure to thrive Metastasis from pancreatic cancer Intractable pain Nausea vomiting and diarrhea Atrial fibrillation with RVR Scribe Attestation The scribe's documentation has been prepared under my direction and personally reviewed by me in its entirety. I confirm that the note above accurately reflects all work, treatment, procedures, and medical decision making performed by me. Departure Information Dispostion Home / Self-Care Referrals No Doctor, Assigned (PCP) Patient Instructions My [facility] Problem Qualifiers
[2017-10-30] MEDS ORDERED: SODIUM CHLORIDE 0.9% 1000ML 1,000 ML IV STA ×2 (15:37→16:51)
[2017-10-30] MEDS ORDERED: LISI1SOL JT (16:09)
[2017-10-30] MEDS ORDERED: ESCI1SOL2 JT (16:09)
[2017-10-30] MEDS ORDERED: DRGTP12 TD (16:09)
[2017-10-30] MEDS ORDERED: ONDANSETRON INJ 2 MG/ML 2 ML VIAL ONE (16:14)
[2017-10-30] MEDS ORDERED: ACET500L2 JT (16:15)
[2017-10-30 16:18] LABS: HEMATOCRIT 32.4 % (37-47); HEMOGLOBIN 11.1 g/dL (12.0-16.0); MEAN CORPUSCULAR HEMOGLOBIN 31.2 pg (25-34); MEAN CORPUSCULAR HGB CONC 34.3 g/dl (32-36); PLATELET COUNT 382 K/uL (130-400); RED CELL DISTRIBUTION WIDTH SD 53.5 fL (36.4-46.3); WHITE BLOOD COUNT 19.01 K/uL (4.8-10.8)
[2017-10-30 16:33] LABS: CALCIUM 9.9 mg/dl (8.5-10.1); CREATININE 0.85 mg/dl (0.60-1.20); POTASSIUM 3.5 mmol/L (3.5-5.1)
[2017-10-30 16:37] LABS: PHOSPHORUS 3.6 mg/dl (2.5-4.9); TOTAL PROTEIN 7.9 gm/dl (6.4-8.2)
[2017-10-30] MEDS ORDERED: HYDROmorphone INJ 1 MG/ML SYR IV STA ×2 (16:43→17:47)
[2017-10-30] MEDS ORDERED: METOPROLOL TARTRATE 1 MG/ML VIAL IV STA (17:24)
[2017-10-30] MEDS ORDERED: PROMETHAZINE HCL INJ 12.5 MG in SODIUM CHLORIDE 0.9% 50ML 50 ML IV PRN (17:30)
[2017-10-30] MEDS ORDERED: ACETAMINOPHEN SOLN 650MG/20.3 ML UDC PO PRN (17:30)
[2017-10-30] MEDS ORDERED: LORAZEPAM 0.5 MG TAB JT PRN (17:30)
[2017-10-30] MEDS ORDERED: MAGNESIUM HYDROXIDE SUSP 30 ML UDC PO PRN (17:30)
[2017-10-30] MEDS ORDERED: ACETAMINOPHEN 1000 MG JT PRN (17:30)
[2017-10-30] MEDS ORDERED: OXYCODONE HCL 20 MG/1 ML UDP GT PRN (17:30)
[2017-10-30] MEDS ORDERED: PROCHLORPERAZINE INJ 5 MG in SYRINGE 4 ML IV PRN (17:30)
[2017-10-30] MEDS ORDERED: MoRPHine SULFATE 2 MG/ML CARP IV PRN (17:45)
--- NOTE | 2017-10-30 17:49 | History and Physical ---
History & Physical Date & Time of Service: Oct 30, 2017 at 17:37 Chief Complaint: Cancer Patient, Dehydration Primary Care Physician: No Doctor, Assigned History of Present Illness Source: patient, spouse 52 y/o F with ongoing intractable n/v. Pt was dx with metastatic pancreatic cancer late June/early July after waking up suddenly jaundiced. Prior to this, pt had been incredibly healthy and was actually about to compete in a /2 Ironman two days later. 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 She failed chemo and surgical interventions and has had a rapid decline in the last few months. She was just d/c'd from [facility] on 10/26/17 for intractable n/v. She had several drains placed and has a J tube in place as well. She has been able to take her meds via the J tube, but has not tolerated any sort of PO since coming home. Ongoing n/v with diarrhea 2x/day. She has no appetite. She was given zofran and reglan but these have been no help. She is taking oxy 10mg Q4hrs and requiring this prior to the dosing schedule for abd pain. There was discussion on d/c from [facility] about starting a clinical trial with immunotherapy, however this has been held up with authorization process issues and pt feels she cannot continue on like this any longer. She feels she is ready to move to hospice care. They did meet with palliative care at [facility], but not in the [place] area. Pt has mild abd pain at present, but no other current sx. Pt denies fever, SOB , chest pain, n/v/c/d, LE pain or swelling. She developed afib during her recent admission and was started on lisinopril and metoprolol. It was decided that she should not start anticoagulation due to her current condition. Past Medical/Surgical History Medical Problems: (1) Abdominal pain Status: Resolved (2) Asthma, Unspecified Status: Chronic (3) Depressive Disorder Nec Status: Chronic (4) Hand laceration Status: Resolved (5) Hemoperitoneum Status: Resolved (6) Ileus Status: Resolved (7) Ileus Status: Resolved (8) Ovarian cyst Status: Resolved (9) Renal cyst Status: Resolved (10) Small bowel obstruction Status: Resolved (11) Syncope Status: Resolved Surgical Problems: (1) History of appendectomy Status: Resolved (2) S/P tubal ligation Status: Resolved (3) Status post endometrial ablation Status: Resolved Metastatic pancreatic cancer Afib Family History Family history was reviewed; no changes noted. Social History Smoking Status: Never Smoker Drug Use: none Marital Status: Occupational Status: employed Immunizations History of Influenza Vaccine: Unknown History of Tetanus Vaccine?: Unknown History of Pneumococcal: Unknown History of Hepatitis B Vaccine: Unknown Multi-Drug Resistant Organisms History of MDRO: No Allergies Coded Allergies: No Known Allergies (Unverified , 10/30/17) Home Medications Scheduled Docusate Sodium (Docusate Sodium), 100 MG JT BID Escitalopram Oxalate (Escitalopram Oxalate), 10 MG JT QAM Fentanyl (Fentanyl), 1 PATCH TD Q72 HOURS Lisinopril (Qbrelis), 5 MG JT QAM Metoclopramide HCl (Metoclopramide HCl), 10 MG JT QID Metoprolol Tartrate (Lopressor) (Lopressor), 25 MG JT AMPM Pantoprazole (Protonix), 40 MG PO QAM Scheduled PRN Acetaminophen (Acetaminophen Extra Stren), 1,000 MG JT Q8 PRN for Pain Lorazepam (Ativan), 0.5 MG JT TID PRN for Anxiety Ondasetron Odt (Zofran Odt), 4 MG SL Q6H PRN for Nausea or Vomiting Oxycodone Oral Soln (Roxicodone Oral Soln), 2.5-10 ML JT Q6 PRN for Pain Review of Systems Pertinent positives and negatives reviewed in HPI--all others negative Physical Exam Vital Signs Date Time Temp Pulse Resp B/P (MAP) Pulse Ox O2 Delivery O2 Flow Rate FiO2 10/30/17 16:57 142 10/30/17 16:55 130 18 126/80 100 Room Air 10/30/17 15:20 36.0 93 18 91/63 98 Room Air General Appearance: no apparent distress, + thin Head: normocephalic, atraumatic Eyes: normal inspection, sclerae normal Respiratory/Chest: normal breath sounds, no respiratory distress Cardiovascular: no edema, + irregularly irregular Abdomen/GI: soft, + tenderness (diffuse) Extremities/Musculoskelatal: no calf tenderness, no pedal edema Neurologic/Psych: alert, oriented x 3, + depressed affect Skin: normal color, warm/dry Diagnostics Laboratory Results Results Past 24 Hours Test 10/30/17 16:10 Range/Units White Blood Count 19.01 4.8-10.8 K/uL Red Blood Count 3.56 4.2-5.4 M/uL Hemoglobin 11.1 12.0-16.0 g/dL Hematocrit 32.4 37-47 % Mean Corpuscular Volume 91.0 80-100 fL Mean Corpuscular Hemoglobin 31.2 25-34 pg Mean Corpuscular Hemoglobin Concent 34.3 32-36 g/dl Platelet Count 382 130-400 K/uL Mean Platelet Volume 10.0 7.4-10.4 fL RDW Standard Deviation 53.5 36.4-46.3 fL RDW Coefficient of Variation 16.0 11.5-14.5 % Neutrophils % (Manual) 70.5 % Lymphocytes % (Manual) 19.1 % Monocytes % (Manual) 8.7 % Eosinophils % (Manual) 1.7 % Neutrophils # (Manual) 13.40 1.4-6.5 K/uL Total Absolute Neutrophils 13.40 1.4-6.5 K/uL Lymphocytes # (Manual) 3.63 1.2-3.4 K/uL Total Absolute Lymphocytes 3.63 1.2-3.4 K/uL Monocytes # (Manual) 1.65 0.11-0.59 K/uL Eosinophils # (Manual) 0.32 0-0.5 K/uL Sodium Level 128 136-145 mmol/L Potassium Level 3.5 3.5-5.1 mmol/L Chloride Level 88 98-107 mmol/L Carbon Dioxide Level 30 21-32 mmol/L Anion Gap 10.0 3-11 mmol/L Blood Urea Nitrogen 27 7-18 mg/dl Creatinine 0.85 0.60-1.20 mg/dl Est Creatinine Clear Calc Drug Dose 65.1 ml/min Estimated GFR () 90.0 Estimated GFR (Non- 77.7 BUN/Creatinine Ratio 31.1 10-20 Random Glucose 116 70-99 mg/dl Calcium Level 9.9 8.5-10.1 mg/dl Phosphorus Level 3.6 2.5-4.9 mg/dl Magnesium Level 2.0 1.8-2.4 mg/dl Total Bilirubin 0.5 0.2-1 mg/dl Direct Bilirubin 0.2 0-0.2 mg/dl Aspartate Amino Transf (AST/SGOT) 30 15-37 U/L Alanine Aminotransferase (ALT/SGPT) 37 12-78 U/L Alkaline Phosphatase 383 45-117 U/L Total Protein 7.9 6.4-8.2 gm/dl Albumin 3.0 3.4-5.0 gm/dl Lipase 242 73-393 U/L Impression Assessment and Plan 52 y/o F who was admitted on 10/30 for intractable n/v. Intractable n/v: likely related to metastatic pancreatic ca Failed zofran and reglan, add phenergan Clears IVF Dehydration: IVF Metastatic pancreatic cancer: PRN pain meds Palliative care c/s pending at pt and 's request Afib: noted in the ED, did take her AM metoprolol Addition 5mg metoprolol IV and monitor Due for HS dosing as well HypoTN: noted on arrival and has improved s/p IVF Monitor with hold parameters on afib meds DNR/DNI Level of Care Med/Surg Resuscitation Status DO NOT RESUSCITATE VTE Prophylaxis VTE Risk Assessment Done? Y/N: Yes Risk Level: Low
[2017-10-30] MEDS ORDERED: HYDROmorphone INJ 1 MG/ML SYR IV PRN ×2 (18:45)
[2017-10-30 19:21] VITALS: BP 130/102; PULSE 125; TEMP 37.1; O2SAT 98
[2017-10-30 19:38] VITALS: BMI 23.8
[2017-10-30] MEDS ORDERED: FENTANYL PATCH REMOVE & WASTE SCH (19:59)
[2017-10-30] MEDS: DOCUSATE SODIUM 100 MG/10 ML UDC JT SCH (20:00)
[2017-10-30] MEDS ORDERED: FENTANYL 12 MCG/HR TDSY TD SCH (20:00)
[2017-10-30] MEDS ORDERED: NURSING VERBAL MED ORDER ONE ×2 (20:15→21:00)
[2017-10-30] MEDS: HYDROmorphone INJ 1 MG/ML SYR IV PRN ×2 (20:26→22:03)
[2017-10-30] MEDS: METOCLOPRAMIDE HCL 10 MG/10 ML UDC PEG SCH (20:26)
[2017-10-30] MEDS: SODIUM CHLORIDE 0.9% 1000ML 1,000 ML IV SCH (20:26)
[2017-10-30] MEDS: METOPROLOL TARTRATE 25 MG TAB JT SCH (20:27)
[2017-10-30] MEDS: [UNRECOGNIZED DRUG - OTHER] JT SCH (22:10)
[2017-10-30 22:16] VITALS: BP 108/75; PULSE 82
[2017-10-31] VITALS (9 sets, daily range): BP systolic 135–173; BP diastolic 88–103; PULSE 76–86; TEMP 37–37.7; O2SAT 97–98; Ht 160 cm; Wt 59.7 kg
[2017-10-31] MEDS: HYDROmorphone INJ 1 MG/ML SYR IV PRN ×6 (00:36→11:42)
[2017-10-31] MEDS: ONDANSETRON INJ 2 MG/ML 2 ML VIAL IV PRN ×3 (00:45→19:38)
[2017-10-31] MEDS: SODIUM CHLORIDE 0.9% 1000ML 1,000 ML IV SCH ×4 (03:52→19:25)
[2017-10-31] MEDS: DOCUSATE SODIUM 100 MG/10 ML UDC JT SCH ×2 (07:49→19:26)
[2017-10-31] MEDS ORDERED: HYDROmorphone INJ 1 MG/ML SYR IV ONE (08:30)
[2017-10-31] MEDS ORDERED: NURSING VERBAL MED ORDER ONE ×5 (08:30→16:30)
[2017-10-31] MEDS: METOPROLOL TARTRATE 25 MG TAB JT SCH ×2 (08:34→19:27)
[2017-10-31] MEDS: LANSOPRAZOLE SOLUTAB 30 MG JT SCH (08:34)
[2017-10-31] MEDS: METOCLOPRAMIDE HCL 10 MG/10 ML UDC PEG SCH ×4 (08:34→19:28)
[2017-10-31] MEDS: CHECK FENTANYL PATCH PLACEMENT SCH ×3 (08:35→15:45)
[2017-10-31] MEDS: ESCITALOPRAM OXALATE JT SCH (08:53)
[2017-10-31] MEDS ORDERED: MORPHINE SULFATE 1 MG/ML 50 ML PCA SYR IV PRN (10:30)
--- NOTE | 2017-10-31 10:52 | Progress Note ---
Subjective Date of Service: Oct 31, 2017. Subjective Pt evaluation today including: conversation w/ patient, conversation w/ family , physical exam, chart review, lab review, review of studies, conversation w/ risk management consultant, review of inpatient medication list Report significant abdominal pain, which required additional 1 dose of Dilaudid IV 1 mg this morning, two also later the pain come back again, morphine pump was started better pain control, PET tube feeding is going on Patient was anxious Problem List Medical Problems: (1) Asthma, Unspecified Status: Chronic (2) Atrial fibrillation with RVR Status: Acute (3) Atrial flutter with rapid ventricular response Status: Acute (4) Dehydration Status: Acute (5) Depressive Disorder Nec Status: Chronic (6) Elevated LFTs Status: Acute (7) Failure to thrive Status: Acute (8) Fever of unknown origin Status: Acute (9) Intractable pain Status: Acute (10) Metastasis from pancreatic cancer Status: Acute (11) Nausea vomiting and diarrhea Status: Acute (12) Pancreatitis Status: Acute (13) Right upper quadrant abdominal pain Status: Acute Review of Systems Constitutional: + weakness, + fatigue, No fever, No chills, No sweats, No weight loss, No problem reported Eyes: No worsening of vision, No eye pain, No redness, No discharge, No diplopia ENT: No hearing loss, No unusual epistaxis, No nasal symptoms, No sore throat, No tinnitus, No dental problems, No trouble swallowing Respiratory: No cough, No sputum, No wheezing, No shortness of breath, No dyspnea on exertion, No dyspnea at rest, No hemoptysis Cardiac: No chest pain, No orthopnea, No PND, No edema, No claudication, No palpitations Abdomen: + see HPI, + pain, + nausea, No vomiting, No diarrhea, No constipation Musculoskeletal: No joint pain, No muscle pain, No swelling, No calf pain Female : No dysuria, No urinary frequency, No hematuria, No incontinence, No abnormal vaginal bleeding, No vaginal discharge Neurologic: No memory loss, No paralysis, No weakness, No numbness/tingling, No vertigo, No balance problems Psychiatric: No depression symptoms, No anhedonism, No anxiety, No insomnia, No substance abuse Heme: No abnormal bleeding/bruising, No clotting problems, No swollen lymph nodes, No night sweats Endo: No fatigue, No excessive thirst, No excessive urination Skin: No rash, No itch, No new/changing skin lesions, No color change, No bleeding Objective Vital Signs Date Time Temp Pulse Resp B/P (MAP) Pulse Ox O2 Delivery O2 Flow Rate FiO2 10/31/17 08:00 97 Room Air 10/31/17 07:40 37.0 86 16 135/89 (104) 97 Room Air 10/31/17 04:30 10/31/17 00:00 98 Room Air 10/30/17 22:16 82 108/75 (86) 10/30/17 19:38 Room Air 10/30/17 19:21 37.1 125 16 130/102 (111) 98 Room Air 10/30/17 18:27 37.2 118 16 128/91 98 10/30/17 18:13 118 16 128/91 98 Room Air 10/30/17 17:46 145 110/87 10/30/17 16:57 142 10/30/17 16:55 130 18 126/80 100 Room Air 10/30/17 15:20 36.0 93 18 91/63 98 Room Air Physical Exam General Appearance: WD/WN, no apparent distress, + pertinent finding (anxious, older than her age,) Eyes: normal inspection, PERRL, EOMI, sclerae normal ENT: normal ENT inspection, hearing grossly normal, pharynx normal Neck: supple, no adenopathy, thyroid normal, no JVD, no carotid bruits, trachea midline Respiratory/Chest: chest non-tender, normal breath sounds, no respiratory distress, no accessory muscle use, + decreased breath sounds Cardiovascular: regular rate, rhythm, no edema, no gallop, no JVD, no murmur Abdomen: normal bowel sounds, soft, no organomegaly, no pulsatile mass, + pertinent finding (PEG tube in place, feeding is going on, G-tube to gravity, right upper quadrant has biliary drainage tube going on) Extremities: normal range of motion, non-tender, normal inspection, no pedal edema, no calf tenderness, normal capillary refill, pelvis stable Neurologic/Psychiatric: belt picker II-XII nml as tested, no motor/sensory deficits, alert, normal mood/affect, oriented x 3 Skin: normal color, warm/dry, no rash Lymphatic: no adenopathy Laboratory Results Last 24 Hours Test 10/30/17 16:10 10/31/17 10:40 White Blood Count 19.01 K/uL Red Blood Count 3.56 M/uL Hemoglobin 11.1 g/dL Hematocrit 32.4 % Mean Corpuscular Volume 91.0 fL Mean Corpuscular Hemoglobin 31.2 pg Mean Corpuscular Hemoglobin Concent 34.3 g/dl Platelet Count 382 K/uL Mean Platelet Volume 10.0 fL RDW Standard Deviation 53.5 fL RDW Coefficient of Variation 16.0 % Neutrophils % (Manual) 70.5 % Lymphocytes % (Manual) 19.1 % Monocytes % (Manual) 8.7 % Eosinophils % (Manual) 1.7 % Neutrophils # (Manual) 13.40 K/uL Total Absolute Neutrophils 13.40 K/uL Lymphocytes # (Manual) 3.63 K/uL Total Absolute Lymphocytes 3.63 K/uL Monocytes # (Manual) 1.65 K/uL Eosinophils # (Manual) 0.32 K/uL Sodium Level 128 mmol/L Potassium Level 3.5 mmol/L Chloride Level 88 mmol/L Carbon Dioxide Level 30 mmol/L Anion Gap 10.0 mmol/L Blood Urea Nitrogen 27 mg/dl Creatinine 0.85 mg/dl Est Creatinine Clear Calc Drug Dose 65.1 ml/min Estimated GFR () 90.0 Estimated GFR (Non- 77.7 BUN/Creatinine Ratio 31.1 Random Glucose 116 mg/dl Calcium Level 9.9 mg/dl Phosphorus Level 3.6 mg/dl Magnesium Level 2.0 mg/dl Total Bilirubin 0.5 mg/dl Direct Bilirubin 0.2 mg/dl Aspartate Amino Transf (AST/SGOT) 30 U/L Alanine Aminotransferase (ALT/SGPT) 37 U/L Alkaline Phosphatase 383 U/L Total Protein 7.9 gm/dl Albumin 3.0 gm/dl Lipase 242 U/L Assessment and Plan 52 y/o F who was admitted on 10/30 2017 for intractable n/v. Intractable n/v: likely secondary to metastatic pancreatic ca, improving, continue zofran and reglan, phenergan, continue IV fluid Metastatic pancreatic cancer: Is significant pain, start a morphine pump for better pain control, palliative care consult is pending, patient's oncologist in [facility], patient requested local oncologist to see, I agreed Afib: noted in the ED, no more A. fib Hypotensive on arriving to emergency , continue monitor Hyponatremia upon admission will follow-up continue IV fluid Leukocytosis upon admission at WBC 19,000, with hypotensive in the emergency room: No sign of sepsis for now Per documentation, and my personal communication with patient, , she feels she is ready to move to hospice care, did meet with palliative care [place] [facility], she wishes not to have heroic medical methods and want to have pain control and keep her comfortable DNR/DNI Discussed with patient was present with nurse Continued [facility] stay due to: multiple IV medications needed Discharge planning: uncertain
[2017-10-31 11:05] LABS: HEMATOCRIT 28.4 % (37-47); HEMOGLOBIN 9.7 g/dL (12.0-16.0); MEAN CELL VOLUME 92.2 fL (80-100); MEAN CORPUSCULAR HEMOGLOBIN 31.5 pg (25-34); MEAN CORPUSCULAR HGB CONC 34.2 g/dl (32-36); MEAN PLATELET VOLUME 9.9 fL (7.4-10.4); PLATELET COUNT 327 K/uL (130-400); RED CELL DISTRIBUTION WIDTH CV 16.2 % (11.5-14.5); RED CELL DISTRIBUTION WIDTH SD 54.9 fL (36.4-46.3); WHITE BLOOD COUNT 15.67 K/uL (4.8-10.8)
[2017-10-31 11:24] LABS: CALCIUM 9.1 mg/dl (8.5-10.1); CREATININE 0.51 mg/dl (0.60-1.20); PHOSPHORUS 2.9 mg/dl (2.5-4.9); POTASSIUM 3.8 mmol/L (3.5-5.1)
[2017-10-31] MEDS ORDERED: NALOXONE HCL 0.4 MG/1 ML VIAL/CARP IV PRN (12:15)
--- NOTE | 2017-10-31 12:29 | Palliative Care Consultation ---
Consultation Date of Consultation: Oct 31, 2017. Requesting Physician: Dr. Galvez Attending Physician: Dr. Cortez Reason for Consultation: Goals of care History of Present Illness This 52 year old female patient with metastatic pancreatic cancer presented to the hospital a couple days ago with severe pain and intractable nausea/ vomiting. Palliative care is seeing patient today in consult as patient wishes to pursue hospice care at this juncture. I met with patient and her in room 403, who provided the following history. Patient diagnosed with pancreatic cancer back in June 2017. She has done most of her doctoring and treatment at [facility], including three rounds of chemotherapy, G and J tube placement, and biliary drain placement. I am unable to see any records from [facility] , but it looks as though G/J tubes were placed due to gastric outlet obstruction which was causing intractable nausea/vomiting. The tubes have helped somewhat as well as provide a means of supportive nutritional therapy, but have not totally taken away the N/V. Patient remains with poor appetite and anorexia. Has severe pain in her back and abdomen. Patient confirms that she wants hospice care and is adamant about nothing further unless it is going to make her more comfortable. Our visit was cut short due to the severe pain. I have made some recommendations for changing her current pain regimen-- please see below. Past Medical/Surgical History Medical History: Metastatic pancreatic cancer Depression Asthma Pain Ileus Ovarian and renal cysts SBO Syncope Surgical History: Appendectomy Tubal Endometrial ablation G and J tubes Biliary drain Social History Smoking Status: Never Smoker History of Alcohol Use: No Drug Use: none Marital Status: Occupation Status: employed Review of Systems Constitutional: + problem reported (poor appetite), No fever, No chills ENT: No trouble swallowing Respiratory: No cough, No shortness of breath Abdomen: + nausea, + vomiting Musculoskeletal: + problem reported (back pain /) Female : No problem reported Psychiatric: + depression symptoms (situational), No anxiety Allergies Coded Allergies: No Known Allergies (Unverified , 10/30/17) Medications Current Inpatient Medications Medications (Trade) Dose Ordered Sig/Poppy Route Start Time Stop Time Status Last Admin Dose Admin Acetaminophen (Tylenol Soln) 650 mg Q4H PRN PO 10/30/17 17:30 11/29/17 17:29 Magnesium Hydroxide (Milk Of Magnesia Susp) 30 ml Q6H PRN PO 10/30/17 17:30 11/29/17 17:29 Ondansetron HCl (Zofran Inj) 4 mg Q6H PRN IV 10/30/17 17:30 11/29/17 17:29 10/31/17 09:49 4 MG Promethazine HCl 12.5 mg/Sodium Chloride 50.5 ml @ 204 mls/hr Q6H PRN IV 10/30/17 17:30 11/29/17 17:29 Prochlorperazine Edisylate 5 mg/ Syringe 5 ml @ 5 mls/min Q4H PRN IV 10/30/17 17:30 11/29/17 17:29 Escitalopram Oxalate (Lexapro Oral Soln) 10 mg QAM JT 10/31/17 08:00 11/30/17 08:59 10/31/17 08:53 10 MG Fentanyl (Duragesic Patch) 12 mcg Q72H TD 10/30/17 20:00 11/13/17 19:59 10/30/17 20:28 12 MCG Lorazepam (Ativan Tab) 0.5 mg TID PRN JT 10/30/17 17:30 11/29/17 17:29 Metoclopramide HCl (Reglan Syrup) 10 mg QID PEG 10/30/17 20:00 11/29/17 20:59 10/31/17 08:34 10 MG Ondansetron HCl (Zofran Odt) 4 mg Q6H PRN SL 10/30/17 17:30 11/29/17 17:29 Lansoprazole (Prevacid Solutab) 30 mg QAM JT 10/31/17 08:00 11/30/17 08:59 10/31/17 08:34 30 MG Docusate Sodium (coLACE SYRUP) 100 mg BID JT 10/30/17 20:00 11/29/17 20:59 Metoprolol Tartrate (Lopressor Tab) 25 mg BID JT 10/30/17 20:00 11/29/17 20:59 10/31/17 08:34 25 MG Sodium Chloride 1,000 ml @ 125 mls/hr Q8H IV 10/30/17 19:30 11/29/17 19:29 10/31/17 03:52 125 MLS/HR Oxycodone HCl (Roxicodone Intensol Soln) 20-40 MG for pain 20 MG ... Q6 PRN GT 10/30/17 18:45 11/13/17 18:44 Miscellaneous (Fentanyl Patch Remove & Waste) 1 ea Q72H N/A 10/30/17 19:59 11/29/17 19:58 10/30/17 19:59 1 EA Miscellaneous Information (Check Fentanyl Patch Placement) 1 ea QS N/A 10/31/17 00:00 11/30/17 00:00 10/31/17 08:35 1 EA Hydromorphone HCl (Dilaudid Inj) 1 mg Q2H PRN IV 10/30/17 20:16 11/13/17 20:15 10/31/17 09:50 1 MG Non-Formulary Medication (Non-Formulary Patient'S Own Med) 1 ea UD JT 10/30/17 21:00 11/29/17 20:59 10/30/17 22:10 1 EA Morphine Sulfate (moRPHine SULFATE PROGRAM ELIGIBILITY SPECIALIST) 50 mg PRN PRN IV 10/31/17 10:30 11/14/17 10:29 10/31/17 10:50 50 MG Sodium Chloride 1,000 ml @ 15 mls/hr Q24H IV 10/31/17 10:30 11/30/17 10:29 Physical Exam Date Time Temp Pulse Resp B/P (MAP) Pulse Ox O2 Delivery O2 Flow Rate FiO2 10/31/17 11:18 37.1 77 18 145/95 (112) 98 Room Air 10/31/17 08:00 97 Room Air 10/31/17 07:40 37.0 86 16 135/89 (104) 97 Room Air 10/31/17 04:30 10/31/17 00:00 98 Room Air 10/30/17 22:16 82 108/75 (86) 10/30/17 19:38 Room Air 10/30/17 19:21 37.1 125 16 130/102 (111) 98 Room Air 10/30/17 18:27 37.2 118 16 128/91 98 10/30/17 18:13 118 16 128/91 98 Room Air 10/30/17 17:46 145 110/87 10/30/17 16:57 142 10/30/17 16:55 130 18 126/80 100 Room Air 10/30/17 15:20 36.0 93 18 91/63 98 Room Air General Appearance: + moderate distress (from pain), + pertinent finding ( chronically ill-appearing) ENT: hearing grossly normal Neck: supple, no JVD Respiratory: lungs clear, no respiratory distress, no accessory muscle use Cardiovascular: regular rate, rhythm, no edema, + normal peripheral pulses Abdomen: normal bowel sounds, non tender, soft Neurologic/Psychiatric: alert, normal mood/affect, oriented x 3 Skin: + pallor Laboratory Results Last 24 Hours Test 10/30/17 16:10 10/31/17 10:49 White Blood Count 19.01 K/uL 15.67 K/uL Red Blood Count 3.56 M/uL 3.08 M/uL Hemoglobin 11.1 g/dL 9.7 g/dL Hematocrit 32.4 % 28.4 % Mean Corpuscular Volume 91.0 fL 92.2 fL Mean Corpuscular Hemoglobin 31.2 pg 31.5 pg Mean Corpuscular Hemoglobin Concent 34.3 g/dl 34.2 g/dl Platelet Count 382 K/uL 327 K/uL Mean Platelet Volume 10.0 fL 9.9 fL RDW Standard Deviation 53.5 fL 54.9 fL RDW Coefficient of Variation 16.0 % 16.2 % Neutrophils % (Manual) 70.5 % 67.2 % Lymphocytes % (Manual) 19.1 % 22.4 % Monocytes % (Manual) 8.7 % 7.8 % Eosinophils % (Manual) 1.7 % 1.7 % Neutrophils # (Manual) 13.40 K/uL 10.53 K/uL Total Absolute Neutrophils 13.40 K/uL 10.53 K/uL Lymphocytes # (Manual) 3.63 K/uL 3.51 K/uL Total Absolute Lymphocytes 3.63 K/uL 3.51 K/uL Monocytes # (Manual) 1.65 K/uL 1.22 K/uL Eosinophils # (Manual) 0.32 K/uL 0.27 K/uL Sodium Level 128 mmol/L 133 mmol/L Potassium Level 3.5 mmol/L 3.8 mmol/L Chloride Level 88 mmol/L 99 mmol/L Carbon Dioxide Level 30 mmol/L 26 mmol/L Anion Gap 10.0 mmol/L 8.0 mmol/L Blood Urea Nitrogen 27 mg/dl 22 mg/dl Creatinine 0.85 mg/dl 0.51 mg/dl Est Creatinine Clear Calc Drug Dose 65.1 ml/min 104.3 ml/min Estimated GFR () 90.0 126.3 Estimated GFR (Non- 77.7 109.0 BUN/Creatinine Ratio 31.1 42.6 Random Glucose 116 mg/dl 135 mg/dl Calcium Level 9.9 mg/dl 9.1 mg/dl Phosphorus Level 3.6 mg/dl 2.9 mg/dl Magnesium Level 2.0 mg/dl 1.9 mg/dl Total Bilirubin 0.5 mg/dl Direct Bilirubin 0.2 mg/dl Aspartate Amino Transf (AST/SGOT) 30 U/L Alanine Aminotransferase (ALT/SGPT) 37 U/L Alkaline Phosphatase 383 U/L Total Protein 7.9 gm/dl Albumin 3.0 gm/dl Lipase 242 U/L Myelocytes % 0.9 % Myelocytes # 0.14 K/uL Red Blood Cell Morphology Unremarkable Assessment & Plan Problem list: Pain, back Nausea/vomiting Metastatic pancreatic CA, mets to liver Anorexia/poor appetite G-tube/J-tube/biliary drain Afib- resolved Goals of care (Z51.5) Palliative care recs: -Patient already decided she is DNR. -Spoke with patient and her in room 403. Patient almost immediately said to me, "I want hospice. I don't want to suffer any more. I can't keep doing this." Patient's was filling me in some of background story/ history. -We did discuss some options for hospice: home vs. facility. This will really depend on patient's needs which will be more apparent once we get pain under control and can truly assess patient's needs and her wishes. -In the middle of our visit, patient became in distress from the severe back pain. Began crying and writhing in bed. I exited room and spoke with Dr. Cortez. -We will switch morphine PROGRAM ELIGIBILITY SPECIALIST to Dilaudid PROGRAM ELIGIBILITY SPECIALIST: no continuous rate. PROGRAM ELIGIBILITY SPECIALIST dose 0.2mg IV Q15min PRN. Will assess patient's needs in 24 hours and go from there. -One of our oncologists, Dr. Michelle, here at [facility] will be seeing patient. Patient's stated, "We don't know how far things have progressed. I've never had a second opinion." Patient stated, "I still don't want anything further. No more surgeries, no more medicines." -Further recommendations to follow once we get patient's pain under control. Thank you kindly for this consult. I will follow as needed. Addendum 1430: Dr. Michelle saw patient. She again was adamant with him that she wants no further treatment for the cancer and would like to pursue hospice care. Her pain was better controlled on the Dilaudid PROGRAM ELIGIBILITY SPECIALIST when he visited her. Dr. Michelle does recommend pain management consult to see about a celiac plexus block-- they have been consulted. I will follow.
[2017-10-31] MEDS: HYDROmorphone HCL 0.5MG/ML 50 ML CASSETTE IV PRN (12:57)
--- NOTE | 2017-10-31 12:57 | Oncology Consultation ---
Oncology/Heme Consultation Date of Consultation: Oct 31, 2017. 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 Guy is a previously healthy 52 year old woman who came to attention in June of last year with obstructive jaundice. This proved to be secondary to a pancreatic head mass that was biopsied 06/28 and revealed a high-grade neuroendocrine tumor. She was transferred to [facility] and had a percutaneous biliary drain placed. She had apparent evidence of hepatic metastases at the time of diagnosis. She was treated at [place] with 3 cycles of cisplatin and etoposide, which she tolerated poorly due to intractable nausea. This proved ultimately to be due to a gastric outlet obstruction and she now has a feeding J tube and decompressive G tube. She tells me that recent scans at [facility] revealed markedly progressive disease in her liver and, as a result, her chemotherapy was discontinued. Her physicians are in the process of obtaining authorization to try a checkpoint inhibitor. In the meantime, she was admitted here yesterday in excruciating pain. She is now on a dilaudid CONVICT GUARD and is looking better. During our conversation, she was lucid and calm and very clearly stated she has no interest in further anti-cancer therapy. Past Medical/Surgical History Medical Problems: (1) Asthma, Unspecified Status: Chronic (2) Atrial fibrillation with RVR Status: Acute (3) Atrial flutter with rapid ventricular response Status: Acute (4) Dehydration Status: Acute (5) Depressive Disorder Nec Status: Chronic (6) Elevated LFTs Status: Acute (7) Failure to thrive Status: Acute (8) Fever of unknown origin Status: Acute (9) Intractable pain Status: Acute (10) Metastasis from pancreatic cancer Status: Acute (11) Nausea vomiting and diarrhea Status: Acute (12) Pancreatitis Status: Acute (13) Right upper quadrant abdominal pain Status: Acute Family History Patient reports no known family medical history. Social History Smoking Status: Never Smoker Drug Use: none Marital Status: Housing Status: lives with family Occupation Status: employed Allergies Coded Allergies: No Known Allergies (Unverified , 10/30/17) Home Medications Scheduled Docusate Sodium (Docusate Sodium), 100 MG JT BID Escitalopram Oxalate (Escitalopram Oxalate), 10 MG JT QAM Fentanyl (Fentanyl), 1 PATCH TD Q72 HOURS Lisinopril (Qbrelis), 5 MG JT QAM Metoclopramide HCl (Metoclopramide HCl), 10 MG JT QID Metoprolol Tartrate (Lopressor) (Lopressor), 25 MG JT AMPM Pantoprazole (Protonix), 40 MG PO QAM Scheduled PRN Acetaminophen (Acetaminophen Extra Stren), 1,000 MG JT Q8 PRN for Pain Lorazepam (Ativan), 0.5 MG JT TID PRN for Anxiety Ondasetron Odt (Zofran Odt), 4 MG SL Q6H PRN for Nausea or Vomiting Oxycodone Oral Soln (Roxicodone Oral Soln), 2.5-10 ML JT Q6 PRN for Pain Current Inpatient Medications Current Inpatient Medications Medications (Trade) Dose Ordered Sig/Poppy Route Start Time Stop Time Status Last Admin Dose Admin Acetaminophen (Tylenol Soln) 650 mg Q4H PRN PO 10/30/17 17:30 11/29/17 17:29 Magnesium Hydroxide (Milk Of Magnesia Susp) 30 ml Q6H PRN PO 10/30/17 17:30 11/29/17 17:29 Ondansetron HCl (Zofran Inj) 4 mg Q6H PRN IV 10/30/17 17:30 11/29/17 17:29 10/31/17 09:49 4 MG Promethazine HCl 12.5 mg/Sodium Chloride 50.5 ml @ 204 mls/hr Q6H PRN IV 10/30/17 17:30 11/29/17 17:29 Prochlorperazine Edisylate 5 mg/ Syringe 5 ml @ 5 mls/min Q4H PRN IV 10/30/17 17:30 11/29/17 17:29 Escitalopram Oxalate (Lexapro Oral Soln) 10 mg QAM JT 10/31/17 08:00 11/30/17 08:59 10/31/17 08:53 10 MG Fentanyl (Duragesic Patch) 12 mcg Q72H TD 10/30/17 20:00 11/13/17 19:59 10/30/17 20:28 12 MCG Lorazepam (Ativan Tab) 0.5 mg TID PRN JT 10/30/17 17:30 11/29/17 17:29 Metoclopramide HCl (Reglan Syrup) 10 mg QID PEG 10/30/17 20:00 11/29/17 20:59 10/31/17 12:40 10 MG Ondansetron HCl (Zofran Odt) 4 mg Q6H PRN SL 10/30/17 17:30 11/29/17 17:29 Lansoprazole (Prevacid Solutab) 30 mg QAM JT 10/31/17 08:00 11/30/17 08:59 10/31/17 08:34 30 MG Docusate Sodium (coLACE SYRUP) 100 mg BID JT 10/30/17 20:00 11/29/17 20:59 Metoprolol Tartrate (Lopressor Tab) 25 mg BID JT 10/30/17 20:00 11/29/17 20:59 10/31/17 08:34 25 MG Sodium Chloride 1,000 ml @ 125 mls/hr Q8H IV 10/30/17 19:30 11/29/17 19:29 10/31/17 11:43 125 MLS/HR Oxycodone HCl (Roxicodone Intensol Soln) 20-40 MG for pain 20 MG ... Q6 PRN GT 10/30/17 18:45 11/13/17 18:44 Miscellaneous (Fentanyl Patch Remove & Waste) 1 ea Q72H N/A 10/30/17 19:59 11/29/17 19:58 10/30/17 19:59 1 EA Miscellaneous Information (Check Fentanyl Patch Placement) 1 ea QS N/A 10/31/17 00:00 11/30/17 00:00 10/31/17 08:35 1 EA Non-Formulary Medication (Non-Formulary Patient'S Own Med) 1 ea UD JT 10/30/17 21:00 11/29/17 20:59 10/30/17 22:10 1 EA Sodium Chloride 1,000 ml @ 15 mls/hr Q24H IV 10/31/17 10:30 11/30/17 10:29 Naloxone HCl (Narcan Inj) 0.1 mg Q5M PRN IV 10/31/17 12:15 11/30/17 12:14 Hydromorphone HCl (Dilaudid Truck Car And Bus Cleaner) 25 mg PRN PRN IV 10/31/17 12:15 11/14/17 12:14 Review of Systems Constitutional: + weight loss, + weakness, + fatigue Respiratory: No cough, No shortness of breath Cardiovascular: No chest pain Abdomen: + pain, + nausea, + vomiting Hematologic / Lymphatic: No abnormal bleeding/bruising Integumentary: No rash Physical Exam Date Time Temp Pulse Resp B/P (MAP) Pulse Ox O2 Delivery O2 Flow Rate FiO2 10/31/17 11:18 37.1 77 18 145/95 (112) 98 Room Air 10/31/17 08:00 97 Room Air 10/31/17 07:40 37.0 86 16 135/89 (104) 97 Room Air 10/31/17 04:30 10/31/17 00:00 98 Room Air 10/30/17 22:16 82 108/75 (86) 10/30/17 19:38 Room Air 10/30/17 19:21 37.1 125 16 130/102 (111) 98 Room Air 10/30/17 18:27 37.2 118 16 128/91 98 10/30/17 18:13 118 16 128/91 98 Room Air 10/30/17 17:46 145 110/87 10/30/17 16:57 142 10/30/17 16:55 130 18 126/80 100 Room Air 10/30/17 15:20 36.0 93 18 91/63 98 Room Air General Appearance: no apparent distress, + cachetic Eyes: EOMI, sclerae normal (anicteric) ENT: + pertinent finding (dry mucous membranes) Respiratory/Chest: lungs clear Cardiovascular: regular rate, rhythm Abdomen/GI: non tender, soft, + pertinent finding (percutaneous biliary drain and her G-J tube are intact and dry) Neurologic/Psych: alert, oriented x 3 Skin: no rash Laboratory Results Last 24 Hours Test 10/30/17 16:10 10/31/17 10:49 White Blood Count 19.01 K/uL 15.67 K/uL Red Blood Count 3.56 M/uL 3.08 M/uL Hemoglobin 11.1 g/dL 9.7 g/dL Hematocrit 32.4 % 28.4 % Mean Corpuscular Volume 91.0 fL 92.2 fL Mean Corpuscular Hemoglobin 31.2 pg 31.5 pg Mean Corpuscular Hemoglobin Concent 34.3 g/dl 34.2 g/dl Platelet Count 382 K/uL 327 K/uL Mean Platelet Volume 10.0 fL 9.9 fL RDW Standard Deviation 53.5 fL 54.9 fL RDW Coefficient of Variation 16.0 % 16.2 % Neutrophils % (Manual) 70.5 % 67.2 % Lymphocytes % (Manual) 19.1 % 22.4 % Monocytes % (Manual) 8.7 % 7.8 % Eosinophils % (Manual) 1.7 % 1.7 % Neutrophils # (Manual) 13.40 K/uL 10.53 K/uL Total Absolute Neutrophils 13.40 K/uL 10.53 K/uL Lymphocytes # (Manual) 3.63 K/uL 3.51 K/uL Total Absolute Lymphocytes 3.63 K/uL 3.51 K/uL Monocytes # (Manual) 1.65 K/uL 1.22 K/uL Eosinophils # (Manual) 0.32 K/uL 0.27 K/uL Sodium Level 128 mmol/L 133 mmol/L Potassium Level 3.5 mmol/L 3.8 mmol/L Chloride Level 88 mmol/L 99 mmol/L Carbon Dioxide Level 30 mmol/L 26 mmol/L Anion Gap 10.0 mmol/L 8.0 mmol/L Blood Urea Nitrogen 27 mg/dl 22 mg/dl Creatinine 0.85 mg/dl 0.51 mg/dl Est Creatinine Clear Calc Drug Dose 65.1 ml/min 104.3 ml/min Estimated GFR () 90.0 126.3 Estimated GFR (Non- 77.7 109.0 BUN/Creatinine Ratio 31.1 42.6 Random Glucose 116 mg/dl 135 mg/dl Calcium Level 9.9 mg/dl 9.1 mg/dl Phosphorus Level 3.6 mg/dl 2.9 mg/dl Magnesium Level 2.0 mg/dl 1.9 mg/dl Total Bilirubin 0.5 mg/dl Direct Bilirubin 0.2 mg/dl Aspartate Amino Transf (AST/SGOT) 30 U/L Alanine Aminotransferase (ALT/SGPT) 37 U/L Alkaline Phosphatase 383 U/L Total Protein 7.9 gm/dl Albumin 3.0 gm/dl Lipase 242 U/L Myelocytes % 0.9 % Myelocytes # 0.14 K/uL Red Blood Cell Morphology Unremarkable Assessment & Plan Ms. Guy is a very unfortunate 52 year old woman with what appears to be a very rapidly progressive, treatment-refractory high-grade pancreatic neuroendocrine tumor. She had tumor progression while on front-line chemotherapy , which predicts a very low likelihood of subsequent response to chemotherapy. Immunotherapy has been shown to be efficacious in small cell lung cancer (which is in many ways an analogous cancer), but the response rates are still low and, more importantly, responses take time, sometimes months. I strongly doubt Ms. Guy will survive that long even with treatment. As a result, I think she is better served by transitioning to hospice and a focus on aggressive palliation. She totally agreed with this plan and is only focused on pain relief. Given the location of her mass, I think a celiac axis block could potentially be helpful. I would consult the pain management team to discuss this with her. Otherwise, we should continue to focus on optimizing her parenteral narcotic regimen. Once she does embark on hospice, her supportive feeding will stop and she likely will pass within days to weeks. She made it very clear that she is unafraid to and is comfortable with stopping life-supporting measures.
[2017-10-31] MEDS: OXYCODONE HCL 20 MG/1 ML UDP GT PRN (16:07)
[2017-11-01] VITALS (8 sets, daily range): BP systolic 112–148; BP diastolic 73–93; PULSE 75–88; TEMP 36.6–37.4; O2SAT 91–97
[2017-11-01] MEDS: CHECK FENTANYL PATCH PLACEMENT SCH ×3 (00:10→16:23)
[2017-11-01] MEDS: OXYCODONE HCL 20 MG/1 ML UDP GT PRN ×3 (00:50→16:22)
[2017-11-01] MEDS: SODIUM CHLORIDE 0.9% 1000ML 1,000 ML IV SCH ×4 (03:32→19:57)
[2017-11-01 05:57] LABS: BASO % 0.7 %; BASO ABS # 0.08 K/uL (0-0.2); EOS ABS # 0.36 K/uL (0-0.5); HEMOGLOBIN 8.6 g/dL (12.0-16.0); IG# 0.08 K/uL (0.00-0.02); LYMPH % 22.4 %; LYMPH ABS # 2.65 K/uL (1.2-3.4); MEAN CELL VOLUME 93.2 fL (80-100); MEAN CORPUSCULAR HEMOGLOBIN 30.8 pg (25-34); MEAN CORPUSCULAR HGB CONC 33.1 g/dl (32-36); MEAN PLATELET VOLUME 10.2 fL (7.4-10.4); MONO % 9.6 %; MONO ABS # 1.14 K/uL (0.11-0.59); NEUT % 63.6 %; NEUT ABS # 7.51 K/uL (1.4-6.5); PLATELET COUNT 260 K/uL (130-400); RED CELL DISTRIBUTION WIDTH SD 55.2 fL (36.4-46.3); WHITE BLOOD COUNT 11.82 K/uL (4.8-10.8)
[2017-11-01 06:29] LABS: CALCIUM 8.8 mg/dl (8.5-10.1); CREATININE 0.46 mg/dl (0.60-1.20); PHOSPHORUS 2.6 mg/dl (2.5-4.9); POTASSIUM 3.8 mmol/L (3.5-5.1)
[2017-11-01] MEDS: DOCUSATE SODIUM 100 MG/10 ML UDC JT SCH ×2 (08:19→19:36)
[2017-11-01] MEDS: ESCITALOPRAM OXALATE JT SCH (08:20)
[2017-11-01] MEDS: LANSOPRAZOLE SOLUTAB 30 MG JT SCH (08:21)
[2017-11-01] MEDS: METOPROLOL TARTRATE 25 MG TAB JT SCH ×2 (08:21→19:37)
[2017-11-01] MEDS: METOCLOPRAMIDE HCL 10 MG/10 ML UDC PEG SCH ×5 (08:22→19:36)
--- NOTE | 2017-11-01 09:54 | Palliative Care Progress Note ---
Palliative Care Progress Note Date of Service Nov 01, 2017. Subjective Pt evaluation today including: conversation w/ patient, conversation w/ family , physical exam, chart review, conversation w/ travel sales consultant, review of inpatient medication list Pain: Improved control - 2/10 per pt on exam PO Intake: poor Voiding: no voiding problems Pain is primarily in her back, is constant, relief with IV Dilaudid and oxycodone, pain ppt by pancreatic cancer - on exam pt rated pain 2/10 after recent oxy given Review of Systems Constitutional: No fever Eyes: No discharge ENT: No hearing loss Respiratory: No cough, No shortness of breath Cardiac: No chest pain Abdomen: + pain (back pain with radiation along flank), + nausea (slight this am), + constipation Female : No dysuria Neurologic: + problem reported (mild sedation due to pain meds) Psychiatric: + anxiety (pt fearful of pain returning to prior levels) Skin: + problem reported (superior portion of surgical wound healing by secondary intention) Objective Vital Signs Date Time Temp Pulse Resp B/P (MAP) Pulse Ox O2 Delivery O2 Flow Rate FiO2 11/01/17 08:55 Room Air 11/01/17 07:32 36.9 86 16 144/91 (108) 97 Room Air 11/01/17 03:35 37.4 88 20 148/93 (111) 97 Room Air 11/01/17 00:38 37.4 11/01/17 00:00 Room Air 10/31/17 23:10 37.7 80 20 149/88 (108) 97 Room Air 10/31/17 20:14 76 18 139/89 (106) Room Air 10/31/17 19:31 37.2 86 18 173/103 (126) 98 Room Air 10/31/17 16:07 37.0 85 20 171/101 (124) 97 Room Air 10/31/17 16:00 97 Room Air 10/31/17 11:18 37.1 77 18 145/95 (112) 98 Room Air Physical Exam General Appearance: + mild distress Eyes: EOMI ENT: hearing grossly normal Neck: supple Respiratory/Chest: lungs clear Cardiovascular: regular rate, rhythm Abdomen: normal bowel sounds, + pertinent finding (GT to gravity drain, J tube with feeds running at 90ml/hr, biliary drain with approx 250 cc out overnight) Extremities: no pedal edema Neurologic/Psychiatric: + pertinent finding (mild sedation, anxious) Laboratory Results Last 24 Hours Test 10/31/17 10:49 11/01/17 05:20 White Blood Count 15.67 K/uL 11.82 K/uL Red Blood Count 3.08 M/uL 2.79 M/uL Hemoglobin 9.7 g/dL 8.6 g/dL Hematocrit 28.4 % 26.0 % Mean Corpuscular Volume 92.2 fL 93.2 fL Mean Corpuscular Hemoglobin 31.5 pg 30.8 pg Mean Corpuscular Hemoglobin Concent 34.2 g/dl 33.1 g/dl Platelet Count 327 K/uL 260 K/uL Mean Platelet Volume 9.9 fL 10.2 fL RDW Standard Deviation 54.9 fL 55.2 fL RDW Coefficient of Variation 16.2 % 16.0 % Neutrophils % (Manual) 67.2 % Lymphocytes % (Manual) 22.4 % Monocytes % (Manual) 7.8 % Eosinophils % (Manual) 1.7 % Myelocytes % 0.9 % Neutrophils # (Manual) 10.53 K/uL Total Absolute Neutrophils 10.53 K/uL Lymphocytes # (Manual) 3.51 K/uL Total Absolute Lymphocytes 3.51 K/uL Monocytes # (Manual) 1.22 K/uL Eosinophils # (Manual) 0.27 K/uL Myelocytes # 0.14 K/uL Red Blood Cell Morphology Unremarkable Unremarkable Sodium Level 133 mmol/L 132 mmol/L Potassium Level 3.8 mmol/L 3.8 mmol/L Chloride Level 99 mmol/L 100 mmol/L Carbon Dioxide Level 26 mmol/L 27 mmol/L Anion Gap 8.0 mmol/L 5.0 mmol/L Blood Urea Nitrogen 22 mg/dl 17 mg/dl Creatinine 0.51 mg/dl 0.46 mg/dl Est Creatinine Clear Calc Drug Dose 104.3 ml/min 115.6 ml/min Estimated GFR () 126.3 130.7 Estimated GFR (Non- 109.0 112.8 BUN/Creatinine Ratio 42.6 36.8 Random Glucose 135 mg/dl 126 mg/dl Calcium Level 9.1 mg/dl 8.8 mg/dl Phosphorus Level 2.9 mg/dl 2.6 mg/dl Magnesium Level 1.9 mg/dl 1.6 mg/dl Neutrophils (%) (Auto) 63.6 % Lymphocytes (%) (Auto) 22.4 % Monocytes (%) (Auto) 9.6 % Eosinophils (%) (Auto) 3.0 % Basophils (%) (Auto) 0.7 % Neutrophils # (Auto) 7.51 K/uL Lymphocytes # (Auto) 2.65 K/uL Monocytes # (Auto) 1.14 K/uL Eosinophils # (Auto) 0.36 K/uL Basophils # (Auto) 0.08 K/uL Immature Granulocyte % (Auto) 0.7 % Immature Granulocyte # (Auto) 0.08 K/uL Assessment and Plan (1) Intractable pain Status: Acute Assessment & Plan: Pt required 5.4 mg of IV Dilaudid in the past 8 hours - approx equal to 72 mg PO oxy, also received 40 mg oxy in the past 12 hours, plus 12 mcg Fentanyl patch. Pt seen by interventional pain who feel she may not be a candidate for a plexus block due to sánchez being primarily in her back. Would consider increasing Fentanyl patch to 50 mcg, cont IV Dilaudid and oxy prn. Consider adding 4 mg PO Decadron via J tube - may help with pain and nausea. Did mention possible use of methadone if sedation becomes an issue with amount of opioids required to control pain. (2) Nausea vomiting and diarrhea Status: Acute Assessment & Plan: reports pt was on Zofran Q 6 hours ATC and continued to have dry heaves at home. Pt's nausea has improved with hydration - may consider increasing volume of water flushes . Ativan or haldol can be effective in controlling nausea and can be given SL. Can see which is less sedating in pt - Haldol can start at 1 mg and titrate up to 2 mg if needed Q 6 - 8 hours either scheduled or prn. Or Ativan at 0.5 mg Q 6-8 hours scheduled or prn - may also help with pt's anxiety as well as nausea. Palliative Performance Scale: 30 % Continued [facility] stay due to: inadequate oral pain control, multiple IV medications needed Discharge planning: uncertain (Home with home health or Hospice) Counseling and Coordination Time in 904 time out 939 - total time 35 min with > 50 % of time spent counseling regarding treatment options for pain and nausea
--- NOTE | 2017-11-01 10:09 | Pain Management Consultation ---
Pain Management Consultation Date of Consultation Nov 01, 2017. Reason for Consultation Intractable pain Pain Location 1 - History This is a 52 year old white female with metastatic pancreatic cancer with intractable nausea and vomiting. She has been experiencing increased pain along the mid to lower back. She describes a deep aching and occasional sharp stabbing pain. Patient states that only if the pain is 10/10, the pain may radiate into the abdomen which has only happened 5 times over the last 6 months. She is treated at [facility]. Patient has agreed to palliative care at this point. She is currently on Fentanyl patch 12mcg/hr, oral Oxycodone 20-40mg PO x 6 hours, and Dilaudid AVID EDITOR. Patient reports a current pain of 3/10. Case discussed with Dr. Natalie Perry Past Medical/Surgical History (1) Metastasis from pancreatic cancer (2) Ileus (3) Atrial fibrillation with RVR (4) Nausea vomiting and diarrhea (5) Intractable pain (6) Failure to thrive (7) Dehydration Family History Patient reports no known family medical history. Social / Work History Smoking Status: Never smoker Smokeless Tobacco Use: No Alcohol Use: none Drug Use: none Marital Status: Housing Status: lives with family Allergies Coded Allergies: No Known Allergies (Unverified , 10/30/17) Medications Current Inpatient Medications Medications (Trade) Dose Ordered Sig/Poppy Route Start Time Stop Time Status Last Admin Dose Admin Acetaminophen (Tylenol Soln) 650 mg Q4H PRN PO 10/30/17 17:30 11/29/17 17:29 Magnesium Hydroxide (Milk Of Magnesia Susp) 30 ml Q6H PRN PO 10/30/17 17:30 11/29/17 17:29 Ondansetron HCl (Zofran Inj) 4 mg Q6H PRN IV 10/30/17 17:30 11/29/17 17:29 10/31/17 19:38 4 MG Promethazine HCl 12.5 mg/Sodium Chloride 50.5 ml @ 204 mls/hr Q6H PRN IV 10/30/17 17:30 11/29/17 17:29 10/31/17 13:05 204 MLS/HR Prochlorperazine Edisylate 5 mg/ Syringe 5 ml @ 5 mls/min Q4H PRN IV 10/30/17 17:30 11/29/17 17:29 Escitalopram Oxalate (Lexapro Oral Soln) 10 mg QAM JT 10/31/17 08:00 11/30/17 08:59 11/01/17 08:20 10 MG Fentanyl (Duragesic Patch) 12 mcg Q72H TD 10/30/17 20:00 11/13/17 19:59 10/30/17 20:28 12 MCG Lorazepam (Ativan Tab) 0.5 mg TID PRN JT 10/30/17 17:30 11/29/17 17:29 Metoclopramide HCl (Reglan Syrup) 10 mg QID PEG 10/30/17 20:00 11/29/17 20:59 11/01/17 08:22 10 MG Ondansetron HCl (Zofran Odt) 4 mg Q6H PRN SL 10/30/17 17:30 11/29/17 17:29 Lansoprazole (Prevacid Solutab) 30 mg QAM JT 10/31/17 08:00 11/30/17 08:59 11/01/17 08:21 30 MG Docusate Sodium (coLACE SYRUP) 100 mg BID JT 10/30/17 20:00 11/29/17 20:59 11/01/17 08:19 100 MG Metoprolol Tartrate (Lopressor Tab) 25 mg BID JT 10/30/17 20:00 11/29/17 20:59 11/01/17 08:21 25 MG Sodium Chloride 1,000 ml @ 125 mls/hr Q8H IV 10/30/17 19:30 11/29/17 19:29 11/01/17 03:32 125 MLS/HR Oxycodone HCl (Roxicodone Intensol Soln) 20-40 MG for pain 20 MG ... Q6 PRN GT 10/30/17 18:45 11/13/17 18:44 11/01/17 08:24 20 MG Miscellaneous (Fentanyl Patch Remove & Waste) 1 ea Q72H N/A 10/30/17 19:59 11/29/17 19:58 10/30/17 19:59 1 EA Miscellaneous Information (Check Fentanyl Patch Placement) 1 ea QS N/A 10/31/17 00:00 11/30/17 00:00 11/01/17 08:22 1 EA Non-Formulary Medication (Non-Formulary Patient'S Own Med) 1 ea UD JT 10/30/17 21:00 11/29/17 20:59 10/30/17 22:10 1 EA Sodium Chloride 1,000 ml @ 15 mls/hr Q24H IV 10/31/17 10:30 11/30/17 10:29 Naloxone HCl (Narcan Inj) 0.1 mg Q5M PRN IV 10/31/17 12:15 11/30/17 12:14 Hydromorphone HCl (Dilaudid Boat Designer) 25 mg PRN PRN IV 10/31/17 12:15 11/14/17 12:14 10/31/17 12:57 25 MG Review of Systems Denies any constitutional, cardiac, pulmonary, neurological, GI, , extremity, endocrine, neuro, ENT, dermatological, or musculoskeletal complaints other than stated in HPI Physical Exam Height & Weight: Height 5 feet, 3.00 inches. Weight 61.600 (Kilograms) 135 (Pounds) Last Vital Signs Documentation Date Time Temp Pulse Resp B/P (MAP) Pulse Ox O2 Delivery O2 Flow Rate FiO2 11/01/17 08:55 Room Air 11/01/17 07:32 36.9 86 16 144/91 (108) 97 Exam: GENERAL: Mrs. Guy is a 52 y/o white female that appears much older than her stated age. She is frail appearing. Speech and cognition is intact. She is tearful but consolable. HEAD: Normocephalic; atraumatic. EYES: Pupils are round, equal, and reactive to light; EOM intact. CHEST: Regular chest respiration and excursion. ABDOMEN: J tube in place. There is a wound in the epigastric incision site. There is no minimal epigastric tenderness. No peritoneal signs. BACK: Full ROM. No midline or facet tenderness. No SI joint tenderness. NEURO: CN II-XII grossly intact with no focal deficits noted. SKIN: No lesions, erythema, or rashes noted. Laboratory Laboratory Results (Last CBC): 11/01/17 05:20 Red Blood Count 2.79 L, Mean Corpuscular Volume 93.2, Mean Corpuscular Hemoglobin 30.8, Mean Corpuscular Hemoglobin Concent 33.1, Mean Platelet Volume 10.2, Neutrophils (%) (Auto) 63.6, Lymphocytes (%) (Auto) 22.4, Monocytes (%) ( Auto) 9.6, Eosinophils (%) (Auto) 3.0, Basophils (%) (Auto) 0.7, Neutrophils # ( Auto) 7.51 H, Lymphocytes # (Auto) 2.65, Monocytes # (Auto) 1.14 H, Eosinophils # (Auto) 0.36, Basophils # (Auto) 0.08 Assessment 1. Metastatic pancreatic cancer 2. Infected abdominal wound Recommendations 1. Patient is involved with palliative care and will manage pain medications. 2. At this time, the patient is not a good candidate for a Celiac Plexus Block given that her pain is located into the back rather than the epigastric region. Patient does also have an elevated WBC and an infection of the abdomen which is requiring packing and debridement. 3. I have explained this to the patient and she understands.
[2017-11-01] MEDS ORDERED: MAGNESIUM SULFATE 1GM / D5W 1 GM in PREMIXED IN D5W 100 ML IV ONE (10:45)
[2017-11-01] MEDS: ONDANSETRON 4MG OD TAB SL PRN (10:57)
[2017-11-01] MEDS: FENTANYL 50 MCG/HR TDSY TD SCH (10:57)
[2017-11-01] MEDS: FENTANYL PATCH REMOVE & WASTE SCH (10:59)
--- NOTE | 2017-11-01 11:55 | Progress Note ---
Subjective Date of Service: Nov 01, 2017. Subjective Pt evaluation today including: conversation w/ patient, conversation w/ family , physical exam, chart review, lab review, review of studies, conversation w/ contaminated land consultant, review of inpatient medication list Currently abdominal pain is better controlled, reported 2 out of 10 pain in abdomen, patient looks relax and some smiling Problem List Medical Problems: (1) Asthma, Unspecified Status: Chronic (2) Atrial fibrillation with RVR Status: Acute (3) Atrial flutter with rapid ventricular response Status: Acute (4) Dehydration Status: Acute (5) Depressive Disorder Nec Status: Chronic (6) Elevated LFTs Status: Acute (7) Failure to thrive Status: Acute (8) Fever of unknown origin Status: Acute (9) Intractable pain Status: Acute (10) Metastasis from pancreatic cancer Status: Acute (11) Nausea vomiting and diarrhea Status: Acute (12) Pancreatitis Status: Acute (13) Right upper quadrant abdominal pain Status: Acute Review of Systems Constitutional: + weakness, + fatigue, No fever, No chills ENT: No see HPI, No hearing loss, No unusual epistaxis, No nasal symptoms, No sore throat, No tinnitus, No dental problems, No trouble swallowing, No problem reported Respiratory: + cough, No see HPI, No sputum, No wheezing, No shortness of breath, No dyspnea on exertion, No dyspnea at rest, No hemoptysis, No problem reported Cardiac: No see HPI, No chest pain, No orthopnea, No PND, No edema, No claudication, No palpitations, No problem reported Abdomen: + pain, + nausea, + vomiting Female : No see HPI, No dysuria, No urinary frequency, No hematuria, No incontinence, No abnormal vaginal bleeding, No vaginal discharge, No problem reported Skin: No see HPI, No rash, No itch, No new/changing skin lesions, No color change, No bleeding, No problem reported Objective Vital Signs Date Time Temp Pulse Resp B/P (MAP) Pulse Ox O2 Delivery O2 Flow Rate FiO2 11/01/17 08:55 Room Air 11/01/17 07:32 36.9 86 16 144/91 (108) 97 Room Air 11/01/17 03:35 37.4 88 20 148/93 (111) 97 Room Air 11/01/17 00:38 37.4 11/01/17 00:00 Room Air 10/31/17 23:10 37.7 80 20 149/88 (108) 97 Room Air 10/31/17 20:14 76 18 139/89 (106) Room Air 10/31/17 19:31 37.2 86 18 173/103 (126) 98 Room Air 10/31/17 16:07 37.0 85 20 171/101 (124) 97 Room Air 10/31/17 16:00 97 Room Air Physical Exam General Appearance: WD/WN, no apparent distress Eyes: normal inspection, PERRL, EOMI ENT: normal ENT inspection, hearing grossly normal, TMs normal Neck: supple, no adenopathy, thyroid normal, no JVD, no carotid bruits, trachea midline Respiratory/Chest: no respiratory distress, no accessory muscle use, + decreased breath sounds Cardiovascular: regular rate, rhythm, no edema, no gallop, no JVD, no murmur Abdomen: + tenderness, + pertinent finding (G-tube, PEG tube and biliary drainage tube in place) Extremities: normal range of motion, non-tender, normal inspection, no pedal edema Neurologic/Psychiatric: 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 as tested, no motor/sensory deficits, alert, normal mood/affect, oriented x 3 Skin: normal color, warm/dry Laboratory Results Last 24 Hours Test 11/01/17 05:20 White Blood Count 11.82 K/uL Red Blood Count 2.79 M/uL Hemoglobin 8.6 g/dL Hematocrit 26.0 % Mean Corpuscular Volume 93.2 fL Mean Corpuscular Hemoglobin 30.8 pg Mean Corpuscular Hemoglobin Concent 33.1 g/dl Platelet Count 260 K/uL Mean Platelet Volume 10.2 fL Neutrophils (%) (Auto) 63.6 % Lymphocytes (%) (Auto) 22.4 % Monocytes (%) (Auto) 9.6 % Eosinophils (%) (Auto) 3.0 % Basophils (%) (Auto) 0.7 % Neutrophils # (Auto) 7.51 K/uL Lymphocytes # (Auto) 2.65 K/uL Monocytes # (Auto) 1.14 K/uL Eosinophils # (Auto) 0.36 K/uL Basophils # (Auto) 0.08 K/uL RDW Standard Deviation 55.2 fL RDW Coefficient of Variation 16.0 % Immature Granulocyte % (Auto) 0.7 % Immature Granulocyte # (Auto) 0.08 K/uL Red Blood Cell Morphology Unremarkable Sodium Level 132 mmol/L Potassium Level 3.8 mmol/L Chloride Level 100 mmol/L Carbon Dioxide Level 27 mmol/L Anion Gap 5.0 mmol/L Blood Urea Nitrogen 17 mg/dl Creatinine 0.46 mg/dl Est Creatinine Clear Calc Drug Dose 115.6 ml/min Estimated GFR () 130.7 Estimated GFR (Non- 112.8 BUN/Creatinine Ratio 36.8 Random Glucose 126 mg/dl Calcium Level 8.8 mg/dl Phosphorus Level 2.6 mg/dl Magnesium Level 1.6 mg/dl Assessment and Plan 52 y/o F who was admitted on 10/30 2017 for intractable n/v, metastatic pancreatic ca, now is on comfort methods Intractable n/v/pain likely secondary to metastatic pancreatic ca, improving, continue zofran and reglan, phenergan, continue IV fluid Severe pain from metastatic cancer disease, has been adjusted pain medicine together with palliative care, taking recommendation from oncologist, and pain management saw patient Currently increased to fentanyl patch to 50 g every 72 hour, continue oxycodone and Dilaudid CERTIFIED SURGICAL TECHNOLOGIST pump Metastatic pancreatic cancer: Local oncology on the case, patient and family decided comfort measure, plan home hospice care after pain better controlled with oral or topical regimen, did mentioned about PICC line for IV fluid hydration and IV a medication, counselling possible no meaningful to do not Afib: noted in the ED, no more A. fib Hypotensive on arriving to emergency , resolved Hyponatremia upon admission Hypomagnesemia, replaced Leukocytosis upon admission at WBC 19,000, with hypotensive in the emergency room: No sign of sepsis for now The above condition related to be stable Discussed with patient and , possible no more aggressive labs testing if not necessarily because the goal of care is changed comfortable DNR/DNI Home hospice care after pain better control Continued [facility] stay due to: inadequate oral pain control, multiple IV medications needed Discharge planning: home with Hospice
[2017-11-01] MEDS: DEXAMETHASONE 4 MG TAB PO SCH ×2 (12:00→18:04)
[2017-11-01] MEDS: MAGNESIUM OXIDE 400 MG TAB PO SCH ×2 (19:36→21:31)
[2017-11-01] MEDS ORDERED: MAGNESIUM HYDROXIDE SUSP 30 ML UDC PO ONE (20:15)
--- NOTE | 2017-11-01 20:18 | Progress Note ---
Progress Note Date of Service Nov 01, 2017. Progress Note Patient refusing MgO tablet due to fear of clogging J-tube Spoke with pharmacy who advised finely crushing tablet + dilution in 2oz water to minimize risk of clogging. Alternatively suggested Milk of Mg -- 12cc = 400mg of magnesium. Risk: may cause diarrhea Offered patient both options. Resident Tracking Resident Involvement: Resident Care Provided Care Provided: Adult Hospital Medicine
[2017-11-02] MEDS: DEXAMETHASONE 4 MG TAB PO SCH ×5 (00:33→23:53)
[2017-11-02] MEDS: CHECK FENTANYL PATCH PLACEMENT SCH ×4 (00:33→23:59)
[2017-11-02] MEDS: SODIUM CHLORIDE 0.9% 1000ML 1,000 ML IV SCH ×3 (04:01→19:06)
[2017-11-02] MEDS: ONDANSETRON 4MG OD TAB SL PRN ×2 (08:07→14:13)
[2017-11-02] MEDS: LANSOPRAZOLE SOLUTAB 30 MG JT SCH (08:09)
[2017-11-02] MEDS: MAGNESIUM OXIDE 400 MG TAB PO SCH ×2 (08:09→20:23)
[2017-11-02] MEDS: DOCUSATE SODIUM 100 MG/10 ML UDC JT SCH ×2 (08:09→20:21)
[2017-11-02] MEDS: METOCLOPRAMIDE HCL 10 MG/10 ML UDC PEG SCH ×4 (08:09→20:22)
[2017-11-02] MEDS: METOPROLOL TARTRATE 25 MG TAB JT SCH ×2 (08:09→20:23)
[2017-11-02] MEDS: ESCITALOPRAM OXALATE JT SCH (08:09)
[2017-11-02 08:12] VITALS: BP 125/77; PULSE 81; TEMP 37; O2SAT 97
[2017-11-02] MEDS: OXYCODONE HCL 20 MG/1 ML UDP GT PRN ×2 (08:14→17:19)
[2017-11-02 08:15] VITALS: O2SAT 97
--- NOTE | 2017-11-02 10:38 | Progress Note ---
Subjective Date of Service: Nov 02, 2017. Subjective Pt evaluation today including: conversation w/ patient, conversation w/ family , physical exam, chart review, lab review, review of studies, conversation w/ devops consultant, review of inpatient medication list Pain is better controlled, currently on the mild pressor like sensations in the lower back No more nausea vomiting, able to sitting up, and eat some clear liquid diet, has small bowel movement this morning Problem List Medical Problems: (1) Asthma, Unspecified Status: Chronic (2) Atrial fibrillation with RVR Status: Acute (3) Atrial flutter with rapid ventricular response Status: Acute (4) Dehydration Status: Acute (5) Depressive Disorder Nec Status: Chronic (6) Elevated LFTs Status: Acute (7) Failure to thrive Status: Acute (8) Fever of unknown origin Status: Acute (9) Intractable pain Status: Acute (10) Metastasis from pancreatic cancer Status: Acute (11) Nausea vomiting and diarrhea Status: Acute (12) Pancreatitis Status: Acute (13) Right upper quadrant abdominal pain Status: Acute Review of Systems Constitutional: + weakness, + fatigue, No see HPI, No fever, No chills, No sweats, No weight loss, No problem reported Eyes: No see HPI, No worsening of vision, No eye pain, No redness, No discharge , No diplopia, No problem reported Respiratory: No see HPI, No cough, No sputum, No wheezing, No shortness of breath, No dyspnea on exertion, No dyspnea at rest, No hemoptysis, No problem reported Cardiac: No see HPI, No chest pain, No orthopnea, No PND, No edema, No claudication, No palpitations, No problem reported Abdomen: + pain, No see HPI, No nausea, No vomiting, No diarrhea, No constipation, No GI bleeding, No problem reported Musculoskeletal: + joint pain (low back pain) Neurologic: No see HPI, No memory loss, No paralysis, No weakness, No numbness/ tingling, No vertigo, No balance problems, No problem reported Heme: No see HPI, No abnormal bleeding/bruising, No clotting problems, No swollen lymph nodes, No night sweats, No problem reported Endo: No see HPI, No fatigue, No excessive thirst, No excessive urination, No problem reported Skin: No see HPI, No rash, No itch, No new/changing skin lesions, No color change, No bleeding, No problem reported Objective Vital Signs Date Time Temp Pulse Resp B/P (MAP) Pulse Ox O2 Delivery O2 Flow Rate FiO2 11/02/17 09:37 Room Air 11/02/17 08:15 97 Room Air 11/02/17 08:12 37.0 81 16 125/77 (93) 97 Room Air 11/02/17 00:10 Room Air 11/01/17 23:30 37.1 75 20 112/73 (86) 96 Room Air 11/01/17 19:27 37.3 78 20 132/87 (102) 91 Room Air 11/01/17 16:00 97 Room Air 11/01/17 15:56 36.6 79 14 126/82 (97) 97 Room Air 11/01/17 14:38 97 Room Air Physical Exam General Appearance: WD/WN, no apparent distress, + pertinent finding (better) Eyes: normal inspection, PERRL, EOMI, sclerae normal ENT: normal ENT inspection, hearing grossly normal, pharynx normal Neck: supple, no adenopathy, thyroid normal, no JVD, no carotid bruits, trachea midline Respiratory/Chest: chest non-tender, normal breath sounds, no respiratory distress, no accessory muscle use, + decreased breath sounds Cardiovascular: regular rate, rhythm, no edema, no gallop, no JVD, no murmur Abdomen: soft, no organomegaly, no pulsatile mass, + pertinent finding (G-tube , PEG tube, and biliary drainage bag in place) Extremities: normal range of motion, non-tender, normal inspection, no pedal edema, no calf tenderness, normal capillary refill, pelvis stable Neurologic/Psychiatric: 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 art 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, no motor/sensory deficits, alert, normal mood/affect, oriented x 3 Skin: normal color, warm/dry, no rash Lymphatic: no adenopathy Assessment and Plan 52 y/o F who was admitted on 10/30 2017 for intractable n/v, metastatic pancreatic ca, now is on comfort methods Intractable n/v/pain likely secondary to metastatic pancreatic ca, Slowly improving Able to tolerate Clear liquid diet and little improving, continue zofran and reglan, phenergan, continue IV fluid, decrease IV fluid to 40 mph Severe pain from metastatic cancer disease, Better with AIRPORT UTILITY WORKER pump, increase to fentanyl dose, and Oxycodone as needed Metastatic pancreatic cancer: Local oncology on the case, patient and family decided comfort measure, plan home hospice care after pain better controlled with oral or topical regimen , Afib: noted in the ED, no more A. fib Hypotensive on arriving to emergency , resolved Hyponatremia upon admission Hypomagnesemia, replaced Leukocytosis upon admission at WBC 19,000, with hypotensive in the emergency room: No sign of sepsis for now The above condition related to be stable Discussed with patient and , possible no more aggressive labs testing if not necessarily because the goal of care is changed, Discussed with palliative care, agree with PICC line for IV fluid hydration possible 1 L a day, and IV a medications, such as AIRPORT UTILITY WORKER pump at home, it will help patient to have better pain control and removed the edge of anxiety, I feel it is fit to the goal of care which is comfort and supportive care comfortable DNR/DNI Home hospice care after pain better control, possible day 1-2 Continued [facility] stay due to: inadequate oral pain control, multiple IV medications needed Discharge planning: home with Hospice
[2017-11-02] MEDS ORDERED: NURSING VERBAL MED ORDER ONE ×3 (11:00→18:45)
--- NOTE | 2017-11-02 11:40 | Palliative Care Progress Note ---
Palliative Care Progress Note Date of Service Nov 02, 2017. Subjective Pt evaluation today including: conversation w/ patient, conversation w/ family (, Levi), physical exam, chart review, conversation w/ sales representative consultant (Dr. Cortez), review of inpatient medication list Met for a lengthy period of time with patient and her , Levi, to discuss hospice and plan of care. See recommendations below. -Patient's pain and nausea/vomiting are much improved. She is quite comfortable on her current regimen. Review of Systems Constitutional: + weakness ENT: No trouble swallowing Respiratory: No cough, No shortness of breath, No dyspnea on exertion Cardiac: No chest pain, No edema Abdomen: + nausea (but much improved), No pain, No vomiting Female : No problem reported Psychiatric: No depression symptoms, No anxiety Objective Vital Signs Date Time Temp Pulse Resp B/P (MAP) Pulse Ox O2 Delivery O2 Flow Rate FiO2 11/02/17 09:37 Room Air 11/02/17 08:15 97 Room Air 11/02/17 08:12 37.0 81 16 125/77 (93) 97 Room Air 11/02/17 00:10 Room Air 11/01/17 23:30 37.1 75 20 112/73 (86) 96 Room Air 11/01/17 19:27 37.3 78 20 132/87 (102) 91 Room Air 11/01/17 16:00 97 Room Air 11/01/17 15:56 36.6 79 14 126/82 (97) 97 Room Air 11/01/17 14:38 97 Room Air Physical Exam General Appearance: no apparent distress, + pertinent finding (chronically ill appearing) ENT: hearing grossly normal Neck: supple, no JVD Respiratory/Chest: no respiratory distress, no accessory muscle use Cardiovascular: regular rate, rhythm, no edema Abdomen: normal bowel sounds, non tender Neurologic/Psychiatric: alert, normal mood/affect, oriented x 3 ("foggy-headed " from Dilaudid) Skin: + pertinent finding (pekid) Assessment and Plan Problem list: Pain, back Nausea/vomiting Metastatic pancreatic CA, mets to liver Anorexia/poor appetite G-tube/J-tube/biliary drain Afib- resolved Goals of care (Z51.5) Palliative care recs: discussed with patient, patient's Levi, and Dr. Cortez. -Patient has definitively decided to go home with hospice. is in agreement. -Referral has been made to [facility]. -Patient has been able to take small amount of PO fluids and is tolerating well. Nausea/vomiting much improved. -Decrease IVF to 40ml/hr. Will see if patient is still comfortable on this amount and will continue this hourly rate at home. plant manager is checking with hospice agency to be sure of their capabilities. -Continue Dilaudid UNIX ENGINEER pump. Can add basal rate of 0.2mg/hr if needed tomorrow. Just had fentanyl patch increased to 50mcg/hr, so would like to give that another day to work. -Will continue UNIX ENGINEER pump at home as well. Again, dependency case manager will run this by the hospice agency. -Patient will have PICC line placed today for use at home. -POLST form completed as follows: DNR, comfort measures only, use of abx with comfort as the goal, trial period of artificial hydration/nutrition. -I saw for a lengthy period of time to discuss end-of-life issues and gave patient and support/education. They were appreciative and denied any further questions/concerns at this time. Thank you again for this consult. I will follow as needed until patient is discharged. Palliative Performance Scale: 40 % Continued [facility] stay due to: multiple IV medications needed Discharge planning: home with Hospice
[2017-11-02] MEDS ORDERED: METOPROLOL TARTRATE 25 MG TAB JT ONE (13:30)
[2017-11-02 14:59] VITALS: BP 118/93; PULSE 108; TEMP 36.9; O2SAT 96
[2017-11-02 16:00] VITALS: O2SAT 96
[2017-11-02 19:20] VITALS: BP 127/94; PULSE 96; TEMP 37.3; O2SAT 98
[2017-11-02 22:29] VITALS: BP 136/90; PULSE 75; TEMP 36.9; O2SAT 99
[2017-11-03] MEDS: ONDANSETRON 4MG OD TAB SL PRN ×3 (01:09→14:24)
[2017-11-03] MEDS: OXYCODONE HCL 20 MG/1 ML UDP GT PRN ×3 (01:10→18:04)
[2017-11-03] MEDS: HYDROmorphone HCL 0.5MG/ML 50 ML CASSETTE IV PRN (01:53)
[2017-11-03 03:51] VITALS: BP 124/80; PULSE 66; TEMP 36.5; O2SAT 97
[2017-11-03] MEDS: DEXAMETHASONE 4 MG TAB PO SCH ×5 (06:00→23:56)
[2017-11-03] MEDS: SODIUM CHLORIDE 0.9% 1000ML 1,000 ML IV SCH ×3 (06:15→11:26)
[2017-11-03] MEDS: DOCUSATE SODIUM 100 MG/10 ML UDC JT SCH ×2 (08:03→19:36)
[2017-11-03] MEDS: ESCITALOPRAM OXALATE JT SCH (08:04)
[2017-11-03] MEDS: METOCLOPRAMIDE HCL 10 MG/10 ML UDC PEG SCH ×4 (08:04→19:36)
[2017-11-03] MEDS: METOPROLOL TARTRATE 25 MG TAB JT SCH ×2 (08:04→19:37)
[2017-11-03] MEDS: MAGNESIUM OXIDE 400 MG TAB PO SCH ×2 (08:04→19:37)
[2017-11-03] MEDS: LANSOPRAZOLE SOLUTAB 30 MG JT SCH (08:04)
[2017-11-03 08:05] VITALS: BP 144/88; PULSE 73; TEMP 36.9; O2SAT 98
[2017-11-03] MEDS: CHECK FENTANYL PATCH PLACEMENT SCH ×3 (08:11→23:54)
[2017-11-03] MEDS ORDERED: NALOXONE HCL 0.4 MG/1 ML VIAL/CARP IV PRN (08:45)
--- NOTE | 2017-11-03 11:16 | Progress Note ---
Subjective Date of Service: Nov 03, 2017. Subjective Pt evaluation today including: conversation w/ patient, conversation w/ family , physical exam, chart review, lab review, review of studies, conversation w/ relationship consultant, review of inpatient medication list Reportedly was having a rough night last night, initially she was having heave, lasting more than 20 minutes, then she was having bowel movement in the rest room, was feel she was feeling shivering and cold when she was up in the rest room, had some bowel movement with the white stool, and then she was feeling pain out off controlled after back to bed, his morning the basal rate of the Dilaudid pump was increased, she currently feeling generally okay pain level is 2 out of 10 in the lower back This morning was able to tolerate in drinking some orange juice Problem List Medical Problems: (1) Asthma, Unspecified Status: Chronic (2) Atrial fibrillation with RVR Status: Acute (3) Atrial flutter with rapid ventricular response Status: Acute (4) Dehydration Status: Acute (5) Depressive Disorder Nec Status: Chronic (6) Elevated LFTs Status: Acute (7) Failure to thrive Status: Acute (8) Fever of unknown origin Status: Acute (9) Intractable pain Status: Acute (10) Metastasis from pancreatic cancer Status: Acute (11) Nausea vomiting and diarrhea Status: Acute (12) Pancreatitis Status: Acute (13) Right upper quadrant abdominal pain Status: Acute Review of Systems Constitutional: + weakness, + fatigue, No see HPI, No fever, No chills, No sweats, No weight loss, No problem reported Eyes: No see HPI, No worsening of vision, No eye pain, No redness, No discharge , No diplopia, No problem reported ENT: No see HPI, No hearing loss, No unusual epistaxis, No nasal symptoms, No sore throat, No tinnitus, No dental problems, No trouble swallowing, No problem reported Respiratory: No see HPI, No cough, No sputum, No wheezing, No shortness of breath, No dyspnea on exertion, No dyspnea at rest, No hemoptysis, No problem reported Cardiac: No see HPI, No chest pain, No orthopnea, No PND, No edema, No claudication, No palpitations, No problem reported Abdomen: No see HPI, No pain, No nausea, No vomiting, No diarrhea, No constipation, No GI bleeding, No problem reported Musculoskeletal: No see HPI, No joint pain, No muscle pain, No swelling, No calf pain, No problem reported Neurologic: No see HPI, No memory loss, No paralysis, No weakness, No numbness/ tingling, No vertigo, No balance problems, No problem reported Psychiatric: No see HPI, No depression symptoms, No anhedonism, No anxiety, No insomnia, No substance abuse, No problem reported Heme: No see HPI, No abnormal bleeding/bruising, No clotting problems, No swollen lymph nodes, No night sweats, No problem reported Endo: No see HPI, No fatigue, No excessive thirst, No excessive urination, No problem reported Skin: No see HPI, No rash, No itch, No new/changing skin lesions, No color change, No bleeding, No problem reported Objective Vital Signs Date Time Temp Pulse Resp B/P (MAP) Pulse Ox O2 Delivery O2 Flow Rate FiO2 11/03/17 10:30 Room Air 11/03/17 08:30 Room Air 11/03/17 08:05 36.9 73 18 144/88 (106) 98 11/03/17 03:51 36.5 66 19 124/80 (95) 97 Room Air 11/03/17 00:30 Room Air 11/02/17 22:29 36.9 75 16 136/90 (105) 99 Room Air 11/02/17 19:20 37.3 96 16 127/94 (105) 98 Room Air 11/02/17 16:00 96 Room Air 11/02/17 14:59 36.9 108 16 118/93 (101) 96 Room Air Physical Exam General Appearance: WD/WN, no apparent distress, + thin, + pertinent finding ( tired) Eyes: normal inspection, PERRL, EOMI, sclerae normal ENT: normal ENT inspection, hearing grossly normal, pharynx normal Neck: supple, no adenopathy, thyroid normal, no JVD, no carotid bruits, trachea midline Respiratory/Chest: chest non-tender, lungs clear, normal breath sounds, no respiratory distress, no accessory muscle use Cardiovascular: regular rate, rhythm, no edema, no gallop, no JVD, no murmur Abdomen: soft, no organomegaly, no pulsatile mass, + abnormal bowel sounds ( decreased BS), + pertinent finding (G-tube and PEG tube and biliary drainage tube is in place) Extremities: normal range of motion, non-tender, normal inspection, no pedal edema, no calf tenderness, normal capillary refill, pelvis stable Neurologic/Psychiatric: certified prosthetist/orthotist II-XII nml as tested, no motor/sensory deficits, alert, normal mood/affect, oriented x 3 Skin: normal color, warm/dry, no rash Lymphatic: no adenopathy Assessment and Plan 52 y/o F who was admitted on 10/30 2017 for intractable n/v, metastatic pancreatic ca, now is on comfort methods Intractable n/v/pain likely secondary to metastatic pancreatic ca, uncomfortable comes and goes, will treat symptomatically, new supportive care, diet as tolerated Severe pain in lower back from metastatic cancer disease, Better with CORPORATE AIRCRAFT MECHANIC pump, as increase the basal rate , continue fentanyl patch, and Oxycodone as needed Agree possible need CORPORATE AIRCRAFT MECHANIC pump continued upon discharge, PICC placed Metastatic pancreatic cancer: Local oncology on the case, patient and family decided comfort measure, plan home/on group home hospice care after pain better controlled with oral or topical regimen, Afib: noted in the ED, was having episodes of A. fib yesterday, help with additional dose of metoprolol, will continue to watch Hypotensive on arriving to emergency , resolved Hyponatremia upon admission Hypomagnesemia, replaced Leukocytosis upon admission at WBC 19,000, with hypotensive in the emergency room: No sign of sepsis for now The above condition related to be stable Discussed with patient and , possible no more aggressive labs testing if not necessarily because the goal of care is changed, they agreed Has CORPORATE AIRCRAFT MECHANIC pump, and planning possible group home hospice care comfortable DNR/DNI [facility] hospice care after pain better control, possible day 1-2 Continued [facility] stay due to: multiple IV medications needed Discharge planning: home with Hospice
[2017-11-03] MEDS ORDERED: NURSING VERBAL MED ORDER ONE ×2 (15:00→16:30)
[2017-11-03 16:09] VITALS: BP 160/96; PULSE 64; TEMP 36.4; O2SAT 96
[2017-11-03 19:22] VITALS: BP 157/100; PULSE 62; TEMP 36.5; O2SAT 97
[2017-11-03 22:48] VITALS: BP 124/74; PULSE 66; TEMP 36.6; O2SAT 97
[2017-11-04] MEDS: ONDANSETRON 4MG OD TAB SL PRN ×3 (00:35→19:06)
[2017-11-04] MEDS: OXYCODONE HCL 20 MG/1 ML UDP GT PRN ×6 (00:36→22:47)
[2017-11-04] MEDS: SODIUM CHLORIDE 0.9% 1000ML 1,000 ML IV SCH ×2 (00:37→09:01)
[2017-11-04] MEDS: DEXAMETHASONE 4 MG TAB PO SCH ×4 (05:48→23:52)
[2017-11-04 07:53] VITALS: BP 156/98; PULSE 66; TEMP 36.6; O2SAT 97
[2017-11-04 08:00] VITALS: O2SAT 97
[2017-11-04] MEDS: MAGNESIUM OXIDE 400 MG TAB PO SCH ×2 (08:14→22:43)
[2017-11-04] MEDS: DOCUSATE SODIUM 100 MG/10 ML UDC JT SCH ×2 (08:14→20:00)
[2017-11-04] MEDS: METOCLOPRAMIDE HCL 10 MG/10 ML UDC PEG SCH ×4 (08:14→22:42)
[2017-11-04] MEDS: METOPROLOL TARTRATE 25 MG TAB JT SCH ×2 (08:15→22:42)
[2017-11-04] MEDS: LANSOPRAZOLE SOLUTAB 30 MG JT SCH (08:15)
[2017-11-04] MEDS: ESCITALOPRAM OXALATE JT SCH (08:15)
[2017-11-04] MEDS: CHECK FENTANYL PATCH PLACEMENT SCH ×3 (08:16→23:53)
[2017-11-04 10:04] VITALS: O2SAT 97
--- NOTE | 2017-11-04 10:20 | Palliative Care Progress Note ---
Palliative Care Progress Note Date of Service Nov 04, 2017. Subjective Pt evaluation today including: conversation w/ patient, conversation w/ family (, Levi), physical exam, chart review, conversation w/ reporting consultant (Dr. Cortez) Pain: none today PO Intake: tolerating small amounts of clear liquids, intermittent tube feedings Voiding: no voiding problems Patient is much more awake and alert today. Pain is well controlled after adding a basal rate of 0.2mg/hr to her Dilaudid GEAR MACHINIST yesterday. Review of Systems Constitutional: No weakness ENT: No trouble swallowing Abdomen: + nausea (very mild, much more controlled today), No pain, No vomiting (no vomiting since two nights ago) Female : No problem reported Psychiatric: No depression symptoms, No anxiety Objective Vital Signs Date Time Temp Pulse Resp B/P (MAP) Pulse Ox O2 Delivery O2 Flow Rate FiO2 11/04/17 08:00 97 Room Air 11/04/17 07:53 36.6 66 12 156/98 (117) 97 Room Air 11/04/17 00:20 Room Air 11/03/17 22:48 36.6 66 17 124/74 (91) 97 11/03/17 20:20 Room Air 11/03/17 19:22 36.5 62 18 157/100 (119) 97 Room Air 11/03/17 16:14 Room Air 11/03/17 16:09 36.4 64 16 160/96 (117) 96 Room Air 11/03/17 10:30 Room Air Physical Exam General Appearance: no apparent distress ENT: hearing grossly normal Neck: supple, no JVD Respiratory/Chest: lungs clear, no respiratory distress, no accessory muscle use Cardiovascular: regular rate, rhythm, no edema Abdomen: + pertinent finding (G/J tube present, flushed this morning by nurse.) Neurologic/Psychiatric: alert, normal mood/affect, oriented x 3 Skin: normal color, + pallor Assessment and Plan Problem list: Pain, back Nausea/vomiting Metastatic pancreatic CA, mets to liver Anorexia/poor appetite G-tube/J-tube/biliary drain Afib- resolved Goals of care (Z51.5) Palliative care recs: discussed with patient, patient's Levi, and Dr. Cortez. -Patient is now going to [facility] on hospice. Being discharged on Tuesday. -Referral has been made to [facility]. -Patient has been able to take small amount of PO fluids and is tolerating well. Nausea/vomiting much improved. -Basal rate added to GEAR MACHINIST pump yesterday. Settings are now 0.2mg/hr with intermittent dose of 0.2mg Q10min PRN. -IVF 40ml/hr. Patient still gets intermittent tube feedings. states he will take the supplies he has at home to [facility] in case she wants to continue this. Their goal is to have her as well as possible when their son arrives next weekend. -G/J tube are draining to Guzman bag. Patient clamps/unclamps as needed when she eats or takes meds. -Please continue lorazepam on discharge. 1mg PO/SL Q4h PRN anxiety. -POLST form completed as follows: DNR, comfort measures only, use of abx with comfort as the goal, trial period of artificial hydration/nutrition. Thank you again for this consult. Please contact me with any further palliative care needs. Total time 65 minutes. Greater than 50% of time with the patient was spent on counseling and coordinating care. Palliative Performance Scale: 40 % Continued [facility] stay due to: multiple IV medications needed Discharge planning: home with Hospice
[2017-11-04] MEDS: FENTANYL 50 MCG/HR TDSY TD SCH (10:30)
[2017-11-04] MEDS: FENTANYL PATCH REMOVE & WASTE SCH (10:32)
--- NOTE | 2017-11-04 10:41 | Progress Note ---
Subjective Date of Service: Nov 04, 2017. Subjective Pt evaluation today including: conversation w/ patient, conversation w/ family , physical exam, chart review, lab review, review of studies, conversation w/ therapeutic consultant, review of inpatient medication list No pain today, tolerating small amounts of clear liquids, Conversational, pleasant, no acute distress, patient is happy about current care Problem List Medical Problems: (1) Asthma, Unspecified Status: Chronic (2) Atrial fibrillation with RVR Status: Acute (3) Atrial flutter with rapid ventricular response Status: Acute (4) Dehydration Status: Acute (5) Depressive Disorder Nec Status: Chronic (6) Elevated LFTs Status: Acute (7) Failure to thrive Status: Acute (8) Fever of unknown origin Status: Acute (9) Intractable pain Status: Acute (10) Metastasis from pancreatic cancer Status: Acute (11) Nausea vomiting and diarrhea Status: Acute (12) Pancreatitis Status: Acute (13) Right upper quadrant abdominal pain Status: Acute Review of Systems Constitutional: + weakness, + fatigue, No fever, No chills, No sweats, No weight loss, No problem reported Eyes: No worsening of vision, No eye pain, No redness, No discharge, No diplopia ENT: No hearing loss, No unusual epistaxis, No nasal symptoms, No sore throat, No tinnitus, No dental problems, No trouble swallowing Respiratory: + cough, No sputum, No wheezing, No shortness of breath, No dyspnea on exertion, No dyspnea at rest, No hemoptysis Cardiac: No chest pain, No orthopnea, No PND, No edema, No claudication, No palpitations Abdomen: No pain, No nausea, No vomiting, No diarrhea, No constipation Musculoskeletal: No joint pain, No muscle pain, No swelling, No calf pain Female : No dysuria, No urinary frequency, No hematuria, No incontinence, No abnormal vaginal bleeding, No vaginal discharge Neurologic: No memory loss, No paralysis, No weakness, No numbness/tingling, No vertigo, No balance problems Psychiatric: No depression symptoms, No anhedonism, No anxiety, No insomnia, No substance abuse Heme: No abnormal bleeding/bruising, No clotting problems, No swollen lymph nodes, No night sweats Endo: No fatigue, No excessive thirst, No excessive urination Skin: No rash, No itch, No new/changing skin lesions, No color change, No bleeding Objective Vital Signs Date Time Temp Pulse Resp B/P (MAP) Pulse Ox O2 Delivery O2 Flow Rate FiO2 11/04/17 10:04 97 Room Air 11/04/17 08:00 97 Room Air 11/04/17 07:53 36.6 66 12 156/98 (117) 97 Room Air 11/04/17 00:20 Room Air 11/03/17 22:48 36.6 66 17 124/74 (91) 97 11/03/17 20:20 Room Air 11/03/17 19:22 36.5 62 18 157/100 (119) 97 Room Air 11/03/17 16:14 Room Air 11/03/17 16:09 36.4 64 16 160/96 (117) 96 Room Air Physical Exam General Appearance: WD/WN, no apparent distress Eyes: normal inspection, PERRL, EOMI, sclerae normal ENT: normal ENT inspection, hearing grossly normal, pharynx normal Neck: supple, no adenopathy, thyroid normal, no JVD, no carotid bruits, trachea midline Respiratory/Chest: chest non-tender, normal breath sounds, no respiratory distress, no accessory muscle use, + decreased breath sounds Cardiovascular: regular rate, rhythm, no edema, no gallop, no JVD, no murmur Abdomen: soft, no organomegaly, no pulsatile mass, + pertinent finding (G-tube , PEG tube, biliary drainage tube in place) Extremities: normal range of motion, non-tender, normal inspection, no pedal edema, no calf tenderness, normal capillary refill, pelvis stable Neurologic/Psychiatric: casing finisher and stuffer II-XII nml as tested, no motor/sensory deficits, alert, normal mood/affect, oriented x 3 Skin: normal color, warm/dry, no rash Lymphatic: no adenopathy Assessment and Plan 52 y/o F who was admitted on 10/30 2017 for intractable n/v, metastatic pancreatic ca, now is on comfort methods Intractable n/v/pain likely secondary to metastatic pancreatic ca, was uncomfortable comes and goes, Is much better, continue treat symptomatically, supportive care, diet as tolerated Severe pain in lower back from metastatic cancer disease, Better with VACUUM TESTER CANS pump, current basal rate of 0.2mg/hr , continue fentanyl patch, and Oxycodone as needed Agree continue VACUUM TESTER CANS pump continued upon discharge, PICC placed Metastatic pancreatic cancer: Local oncology on the case, patient and family decided comfort measure, plan retirement hospice care after pain better controlled with oral or topical regimen, Afib: noted in the ED, was having episodes of A. fib yesterday, help with additional dose of metoprolol, currently stable Hypotensive on arriving to emergency , resolved Hyponatremia upon admission Hypomagnesemia, replaced Leukocytosis upon admission at WBC 19,000, with hypotensive in the emergency room: No sign of sepsis for now The above condition related to be stable, no any lab testing needed because the goal of care has changed to comfort measures planning possible retirement hospice care on Tuesday comfortable DNR/DNI Continued [facility] stay due to: multiple IV medications needed Discharge planning: home with Hospice
[2017-11-04 15:20] VITALS: BP 142/101; PULSE 62; TEMP 36.8; O2SAT 98
[2017-11-04] MEDS ORDERED: NURSING VERBAL MED ORDER ONE (15:45)
[2017-11-04] MEDS ORDERED: AMLODIPINE BESYLATE 5 MG TAB PEG STA (15:47)
[2017-11-04] MEDS: [UNRECOGNIZED DRUG - OTHER] JT SCH (19:06)
[2017-11-04] MEDS: ONDANSETRON INJ 2 MG/ML 2 ML VIAL IV PRN (22:43)
[2017-11-04] MEDS: HYDROmorphone HCL 0.5MG/ML 50 ML CASSETTE IV PRN (23:35)
[2017-11-05] VITALS (7 sets, daily range): BP systolic 114–154; BP diastolic 74–88; PULSE 59–66; TEMP 36.7–36.9; O2SAT 95–99
[2017-11-05] MEDS: OXYCODONE HCL 20 MG/1 ML UDP GT PRN ×3 (06:34→18:25)
[2017-11-05] MEDS: DEXAMETHASONE 4 MG TAB PO SCH ×3 (06:35→18:25)
[2017-11-05] MEDS: CHECK FENTANYL PATCH PLACEMENT SCH ×2 (07:41→14:36)
[2017-11-05] MEDS: SODIUM CHLORIDE 0.9% 1000ML 1,000 ML IV SCH ×2 (09:22→09:41)
[2017-11-05] MEDS: ONDANSETRON 4MG OD TAB SL PRN ×2 (09:38→17:27)
[2017-11-05] MEDS: METOCLOPRAMIDE HCL 10 MG/10 ML UDC PEG SCH ×4 (09:38→21:03)
[2017-11-05] MEDS: METOPROLOL TARTRATE 25 MG TAB JT SCH ×2 (09:38→21:03)
[2017-11-05] MEDS: DOCUSATE SODIUM 100 MG/10 ML UDC JT SCH ×2 (09:39→21:03)
[2017-11-05] MEDS: LANSOPRAZOLE SOLUTAB 30 MG JT SCH (09:39)
[2017-11-05] MEDS: ESCITALOPRAM OXALATE JT SCH (09:39)
[2017-11-05] MEDS: MAGNESIUM OXIDE 400 MG TAB PO SCH ×2 (09:40→21:02)
[2017-11-05] MEDS: AMLODIPINE BESYLATE 5 MG TAB PEG SCH (09:40)
--- NOTE | 2017-11-05 14:48 | Progress Note ---
Subjective Date of Service: Nov 05, 2017. Subjective Pt evaluation today including: conversation w/ patient, conversation w/ family , physical exam, chart review, lab review, review of studies, review of inpatient medication list Report has not been feeling so well for couple weeks, has been able to tolerate some diet, no bowel movement, and pain is well controlled, deny fever chills Problem List Medical Problems: (1) Asthma, Unspecified Status: Chronic (2) Atrial fibrillation with RVR Status: Acute (3) Atrial flutter with rapid ventricular response Status: Acute (4) Dehydration Status: Acute (5) Depressive Disorder Nec Status: Chronic (6) Elevated LFTs Status: Acute (7) Failure to thrive Status: Acute (8) Fever of unknown origin Status: Acute (9) Intractable pain Status: Acute (10) Metastasis from pancreatic cancer Status: Acute (11) Nausea vomiting and diarrhea Status: Acute (12) Pancreatitis Status: Acute (13) Right upper quadrant abdominal pain Status: Acute Review of Systems Constitutional: + weakness, + fatigue, No fever, No chills, No sweats, No weight loss, No problem reported Eyes: No worsening of vision, No eye pain, No redness, No discharge, No diplopia ENT: No hearing loss, No unusual epistaxis, No nasal symptoms, No sore throat, No tinnitus, No dental problems, No trouble swallowing Respiratory: No cough, No sputum, No wheezing, No shortness of breath, No dyspnea on exertion, No dyspnea at rest, No hemoptysis Cardiac: No chest pain, No orthopnea, No PND, No edema, No claudication, No palpitations Abdomen: + constipation, No pain, No nausea, No vomiting, No diarrhea Musculoskeletal: No joint pain, No muscle pain, No swelling, No calf pain Female : No dysuria, No urinary frequency, No hematuria, No incontinence, No abnormal vaginal bleeding, No vaginal discharge Neurologic: No memory loss, No paralysis, No weakness, No numbness/tingling, No vertigo, No balance problems Psychiatric: No depression symptoms, No anhedonism, No anxiety, No insomnia, No substance abuse Heme: No abnormal bleeding/bruising, No clotting problems, No swollen lymph nodes, No night sweats Endo: + fatigue, No excessive thirst, No excessive urination Skin: No rash, No itch, No new/changing skin lesions, No color change, No bleeding Objective Vital Signs Date Time Temp Pulse Resp B/P (MAP) Pulse Ox O2 Delivery O2 Flow Rate FiO2 11/05/17 11:44 36.7 66 16 134/88 (103) 97 Room Air 11/05/17 07:53 36.7 65 16 135/85 (102) 99 Room Air 11/05/17 04:00 36.9 66 20 154/85 (108) 98 Room Air 11/05/17 00:23 36.8 65 18 118/82 (94) 98 Room Air 11/05/17 00:00 Room Air 11/04/17 16:00 Room Air 11/04/17 15:20 36.8 62 18 142/101 (115) 98 Room Air Physical Exam General Appearance: + cachetic, + pertinent finding (tired looking , chronically ill-looking) Eyes: normal inspection, PERRL, EOMI, sclerae normal ENT: normal ENT inspection, hearing grossly normal, pharynx normal Neck: supple, no adenopathy, thyroid normal, no JVD, no carotid bruits, trachea midline Respiratory/Chest: chest non-tender, normal breath sounds, no respiratory distress, no accessory muscle use, + decreased breath sounds Cardiovascular: regular rate, rhythm, no edema, no gallop, no JVD, no murmur Abdomen: normal bowel sounds, non tender, soft, no organomegaly, no pulsatile mass, + pertinent finding (abdomen soft, G-tube, J-tube, and biliary drainage bag are in place) Extremities: normal range of motion, non-tender, normal inspection, no pedal edema, no calf tenderness, normal capillary refill, pelvis stable Neurologic/Psychiatric: registered health nurse II-XII nml as tested, no motor/sensory deficits, alert, normal mood/affect, oriented x 3 Skin: normal color, warm/dry, no rash Lymphatic: no adenopathy Assessment and Plan 52 y/o F who was admitted on 10/30 2017 for intractable n/v, metastatic pancreatic ca, now is on comfort methods Intractable n/v/pain likely secondary to metastatic pancreatic ca, was uncomfortable, and comes and goes, Has been continue tube feeding well controlled, continue treat symptomatically, supportive care, diet as tolerated Continue stool regimen for constipation Severe pain in lower back from metastatic cancer disease, Better with ASSOCIATE PATHOLOGIST pump, current basal rate of 0.2mg/hr , continue fentanyl patch, and Oxycodone as needed Agree continue ASSOCIATE PATHOLOGIST pump continued upon discharge, PICC placed Metastatic pancreatic cancer: Local oncology on the case, patient and family decided comfort measure, plan [facility] hospice care after pain better controlled with oral or topical regimen, Afib: noted in the ED, was having episodes of A. fib yesterday, help with additional dose of metoprolol, currently stable Hypotensive on arriving to emergency , resolved Hyponatremia upon admission Hypomagnesemia, replaced Leukocytosis upon admission at WBC 19,000, with hypotensive in the emergency room: No sign of sepsis for now The above condition related to be stable, no any lab testing needed because the goal of care has changed to comfort measures Continue current care , planning possible [facility] hospice care on Tuesday, no more blood drawn comfortable DNR/DNI Continued [facility] stay due to: multiple IV medications needed Discharge planning: home with Hospice
[2017-11-05] MEDS: [UNRECOGNIZED DRUG - OTHER] JT SCH (21:06)
[2017-11-06] MEDS: ONDANSETRON 4MG OD TAB SL PRN ×4 (00:16→19:14)
[2017-11-06] MEDS: CHECK FENTANYL PATCH PLACEMENT SCH ×3 (00:17→15:33)
[2017-11-06] MEDS: DEXAMETHASONE 4 MG TAB PO SCH ×4 (00:19→17:26)
[2017-11-06] MEDS: OXYCODONE HCL 20 MG/1 ML UDP GT PRN ×4 (00:21→19:15)
[2017-11-06 01:27] VITALS: BP 99/64; TEMP 37; O2SAT 96
[2017-11-06 04:31] VITALS: BP 112/73; PULSE 68; TEMP 37.1; O2SAT 98
[2017-11-06] MEDS: DOCUSATE SODIUM 100 MG/10 ML UDC JT SCH ×2 (07:46→20:38)
[2017-11-06] MEDS: METOPROLOL TARTRATE 25 MG TAB JT SCH ×2 (07:46→20:38)
[2017-11-06] MEDS: METOCLOPRAMIDE HCL 10 MG/10 ML UDC PEG SCH ×4 (07:46→20:38)
[2017-11-06] MEDS: MAGNESIUM OXIDE 400 MG TAB PO SCH ×2 (07:47→20:38)
[2017-11-06] MEDS: AMLODIPINE BESYLATE 5 MG TAB PEG SCH (07:47)
[2017-11-06] MEDS: LANSOPRAZOLE SOLUTAB 30 MG JT SCH (07:47)
[2017-11-06] MEDS: ESCITALOPRAM OXALATE JT SCH (07:48)
[2017-11-06 07:53] VITALS: BP 109/76; PULSE 69; TEMP 36.8; O2SAT 97
[2017-11-06] MEDS: SODIUM CHLORIDE 0.9% 1000ML 1,000 ML IV SCH ×2 (07:53→10:30)
--- NOTE | 2017-11-06 10:45 | Hematology/Oncology Prog Note ---
Hematology/Onc Progress Note Date of Service Nov 06, 2017. Diagnoses History of progressive neuroendocrine pancreatic carcinoma Medications Medications Administered Medications (Trade) Dose Ordered Sig/Poppy Route Start Time Stop Time Status Last Admin Dose Admin Sodium Chloride 1,000 ml @ 999 mls/hr Q1H1M STAT IV 10/30/17 15:37 10/30/17 16:37 DC 10/30/17 16:10 999 MLS/HR Ondansetron HCl (Zofran Inj) 4 mg STK-MED ONCE .ROUTE 10/30/17 16:14 10/30/17 16:15 DC 10/30/17 16:18 4 MG Hydromorphone HCl (Dilaudid Inj) 1 mg NOW STAT IV 10/30/17 16:43 10/30/17 16:44 DC 10/30/17 16:57 1 MG Sodium Chloride 1,000 ml @ 999 mls/hr Q1H1M STAT IV 10/30/17 16:51 10/30/17 17:51 DC 10/30/17 16:57 999 MLS/HR Metoprolol Tartrate (Lopressor Iv) 5 mg NOW STAT IV 10/30/17 17:24 10/30/17 17:25 DC 10/30/17 17:46 5 MG Ondansetron HCl (Zofran Inj) 4 mg Q6H PRN IV 10/30/17 17:30 11/29/17 17:29 11/04/17 22:43 4 MG Promethazine HCl 12.5 mg/Sodium Chloride 50.5 ml @ 204 mls/hr Q6H PRN IV 10/30/17 17:30 11/29/17 17:29 10/31/17 13:05 204 MLS/HR Escitalopram Oxalate (Lexapro Oral Soln) 10 mg QAM JT 10/31/17 08:00 11/30/17 08:59 11/06/17 07:48 10 MG Fentanyl (Duragesic Patch) 12 mcg Q72H TD 10/30/17 20:00 11/01/17 10:08 DC 10/30/17 20:28 12 MCG Lorazepam (Ativan Tab) 0.5 mg TID PRN JT 10/30/17 17:30 11/29/17 17:29 11/03/17 12:01 0.5 MG Metoclopramide HCl (Reglan Syrup) 10 mg QID PEG 10/30/17 20:00 11/29/17 20:59 11/06/17 07:46 10 MG Ondansetron HCl (Zofran Odt) 4 mg Q6H PRN SL 10/30/17 17:30 11/29/17 17:29 11/06/17 06:45 4 MG Lansoprazole (Prevacid Solutab) 30 mg QAM JT 10/31/17 08:00 11/30/17 08:59 11/06/17 07:47 30 MG Docusate Sodium (coLACE SYRUP) 100 mg BID JT 10/30/17 20:00 11/29/17 20:59 11/06/17 07:46 100 MG Metoprolol Tartrate (Lopressor Tab) 25 mg BID JT 10/30/17 20:00 11/29/17 20:59 11/06/17 07:46 25 MG Sodium Chloride 1,000 ml @ 40 mls/hr Q24H IV 10/30/17 19:30 11/29/17 19:29 11/06/17 07:53 40 MLS/HR Hydromorphone HCl (Dilaudid Inj) 1 mg NOW STAT IV 10/30/17 17:47 10/30/17 17:48 DC 10/30/17 18:15 1 MG Oxycodone HCl (Roxicodone Intensol Soln) 20-40 MG for pain 20 MG ... Q6 PRN GT 10/30/17 18:45 11/13/17 18:44 11/06/17 06:46 40 MG Miscellaneous (Fentanyl Patch Remove & Waste) 1 ea Q72H N/A 10/30/17 19:59 11/01/17 10:33 DC 10/30/17 19:59 1 EA Miscellaneous Information (Check Fentanyl Patch Placement) 1 ea QS N/A 10/31/17 00:00 11/30/17 00:00 11/06/17 07:49 1 EA Hydromorphone HCl (Dilaudid Inj) 1 mg Q2H PRN IV 10/30/17 20:16 10/31/17 12:17 DC 10/31/17 11:42 1 MG Non-Formulary Medication (Non-Formulary Patient'S Own Med) 1 ea UD JT 10/30/17 21:00 11/29/17 20:59 11/05/17 21:06 1 EA Hydromorphone HCl (Dilaudid Inj) 1 mg ONE ONCE IV 10/31/17 08:30 10/31/17 08:31 DC 10/31/17 08:34 1 MG Morphine Sulfate (moRPHine SULFATE CUSTOMER SUPPORT ASSISTANT) 50 mg PRN PRN IV 10/31/17 10:30 10/31/17 12:18 DC 10/31/17 10:50 50 MG Hydromorphone HCl (Dilaudid Tourist Information Officer) 25 mg PRN PRN IV 10/31/17 12:15 11/03/17 08:59 DC 11/03/17 01:53 25 MG Magnesium Oxide (Mag-Ox Tab) 400 mg BID PO 11/01/17 20:00 12/01/17 19:59 11/06/17 07:47 400 MG Magnesium Sulfate 1 gm/Prmx 100 ml @ 100 mls/hr TODAY@1045 ONCE IV 11/01/17 10:45 11/01/17 11:44 DC 11/01/17 11:22 100 MLS/HR Fentanyl (Duragesic Patch) 50 mcg Q3D@1030 TD 11/01/17 10:30 11/15/17 10:29 11/04/17 10:30 50 MCG Dexamethasone (Decadron Tab) 4 mg Q6 PO 11/01/17 12:00 12/01/17 11:59 11/06/17 06:45 4 MG Miscellaneous (Fentanyl Patch Remove & Waste) 1 ea Q3D@1029 N/A 11/01/17 10:29 12/01/17 10:28 11/04/17 10:32 1 EA Metoprolol Tartrate (Lopressor Tab) 25 mg NOW ONCE JT 11/02/17 13:30 11/02/17 13:31 DC 11/02/17 13:40 25 MG Hydromorphone HCl (Dilaudid Tourist Information Officer) 25 mg PRN PRN IV 11/03/17 08:45 11/17/17 08:44 11/04/17 23:35 25 MG Amlodipine Besylate (Norvasc Tab) 5 mg QAM PEG 11/05/17 08:00 12/05/17 07:59 11/06/17 07:47 5 MG Amlodipine Besylate (Norvasc Tab) 5 mg NOW STAT PEG 11/04/17 15:47 11/04/17 15:48 DC 11/04/17 16:24 5 MG Subjective Her pain seems to be fairly well controlled. She reviews with me today her personal decision to move on to hospice care. I understand that a transfer to the [facility] is pending for tomorrow. Review of Systems: Constitutional: Negative for night sweats, or fever Cardiovascular: Negative for chest pain, palpitations, dizziness, diaphoresis Respiratory: Negative for new shortness of breath,hemoptysis, or purulent cough Gastrointestinal: Negative for diarrhea, hematemesis, melena, nausea, vomiting , or dyspepsia Integumentary (skin): Negative for rash or jaundice discoloration Neurological: Negative for weakness, seizure activity, headache, or dizziness Lymphatic/Hematologic: Negative for petechiae, bleeding or new adenopathy Musculoskeletal: Negative for new joint or back pain Allergic/Immunologic: Negative for unusual rash or pruritis. Vital Signs Vital Signs Past 12 Hours Date Time Temp Pulse Resp B/P (MAP) Pulse Ox O2 Delivery O2 Flow Rate FiO2 11/06/17 07:53 36.8 69 16 109/76 (87) 97 Room Air 11/06/17 04:31 37.1 68 18 112/73 (86) 98 Room Air 11/06/17 00:00 Room Air 11/05/17 23:48 36.9 59 16 123/79 (94) 95 Room Air Physical Exam Constitutional: vitals are stable. Eyes: Eyes are DINAH EOMI without conjuctival erythema or icterus. ENT: External examination was negative for masses. Neck: Negative for masses or palpable thyromegaly Respiratory: Lung sounds were generally clear bilaterally Cardiovascular: Heart was RRR without significant murmur, gallops aoe rubs Gastrointestinal: No palpable hepatic or splenomegaly. The abdomen was soft with normal bowel sounds. Feeding tube in place Lymphatic system: there was no palpable peripheral lymphadenopathy Musculoskeletal System: The musculoskeletal system seemed concordant with age. Skin: The skin was negative for jaundice. Neurologic exam: The exam was negative for any focal findings. Deep tendon reflexes were equal and symmetrical. Psychiatric exam: Was essentially negative with normal mood and effect. Extremities: negative for edema Assessment & Plan Ms. cespedes has decided not to pursue further systemic cytoreductive therapy. Hospice agencies have been notified. I understand discharge is pending for tomorrow. We will arrange for follow-up in our clinic in the next 3-4 weeks if she feels up to it. Our clinic will be available for issues that she may have as she moves on to hospice care..
[2017-11-06] MEDS ORDERED: DXM4 PO (12:10)
[2017-11-06] MEDS ORDERED: NRV5 PEG (12:10)
[2017-11-06] MEDS ORDERED: DLD25PCA IV (12:10)
[2017-11-06] MEDS ORDERED: DRGTP50 TD (12:10)
[2017-11-06] MEDS ORDERED: LORA-741 JT (12:10)
[2017-11-06] MEDS ORDERED: LPR25 JT (12:10)
[2017-11-06] MEDS ORDERED: RXCS GT (12:10)
--- NOTE | 2017-11-06 13:18 | Progress Note ---
Subjective Date of Service: Nov 06, 2017. Subjective Pt evaluation today including: conversation w/ patient, conversation w/ family , physical exam, chart review, lab review, review of studies, conversation w/ mental hygiene consultant, review of inpatient medication list Doing the same, comfortable no pain, tolerate diet, Problem List Medical Problems: (1) Asthma, Unspecified Status: Chronic (2) Atrial fibrillation with RVR Status: Acute (3) Atrial flutter with rapid ventricular response Status: Acute (4) Dehydration Status: Acute (5) Depressive Disorder Nec Status: Chronic (6) Elevated LFTs Status: Acute (7) Failure to thrive Status: Acute (8) Fever of unknown origin Status: Acute (9) Intractable pain Status: Acute (10) Metastasis from pancreatic cancer Status: Acute (11) Nausea vomiting and diarrhea Status: Acute (12) Pancreatitis Status: Acute (13) Right upper quadrant abdominal pain Status: Acute Review of Systems Constitutional: + weakness, + fatigue, No fever, No chills, No sweats, No weight loss, No problem reported Eyes: No worsening of vision, No eye pain, No redness, No discharge, No diplopia ENT: No hearing loss, No unusual epistaxis, No nasal symptoms, No sore throat, No tinnitus, No dental problems, No trouble swallowing Respiratory: No cough, No sputum, No wheezing, No shortness of breath, No dyspnea on exertion, No dyspnea at rest, No hemoptysis Cardiac: No chest pain, No orthopnea, No PND, No edema, No claudication, No palpitations Abdomen: + nausea (occasional), No pain, No vomiting, No diarrhea, No constipation Musculoskeletal: No joint pain, No muscle pain, No swelling, No calf pain Female : No dysuria, No urinary frequency, No hematuria, No incontinence, No abnormal vaginal bleeding, No vaginal discharge Neurologic: No memory loss, No paralysis, No weakness, No numbness/tingling, No vertigo, No balance problems Psychiatric: No depression symptoms, No anhedonism, No anxiety, No insomnia, No substance abuse Heme: No abnormal bleeding/bruising, No clotting problems, No swollen lymph nodes, No night sweats Endo: No fatigue, No excessive thirst, No excessive urination Skin: No rash, No itch, No new/changing skin lesions, No color change, No bleeding Objective Vital Signs Date Time Temp Pulse Resp B/P (MAP) Pulse Ox O2 Delivery O2 Flow Rate FiO2 11/06/17 08:00 Room Air 11/06/17 07:53 36.8 69 16 109/76 (87) 97 Room Air 11/06/17 04:31 37.1 68 18 112/73 (86) 98 Room Air 11/06/17 00:00 Room Air 11/05/17 23:48 36.9 59 16 123/79 (94) 95 Room Air 11/05/17 20:00 Room Air 11/05/17 19:36 36.8 61 18 114/74 (87) 99 Room Air 11/05/17 16:00 Room Air 11/05/17 15:48 36.7 63 16 117/76 (90) 97 Room Air Physical Exam General Appearance: WD/WN, no apparent distress, + pertinent finding (pleasant pain well controlled) Eyes: normal inspection, PERRL, EOMI, sclerae normal ENT: normal ENT inspection, hearing grossly normal, pharynx normal Neck: supple, no adenopathy, thyroid normal, no JVD, no carotid bruits, trachea midline Respiratory/Chest: chest non-tender, normal breath sounds, no respiratory distress, no accessory muscle use, + decreased breath sounds Cardiovascular: regular rate, rhythm, no edema, no gallop, no JVD, no murmur Abdomen: + pertinent finding (feeding tube in place) Extremities: normal range of motion, non-tender, normal inspection, no pedal edema, no calf tenderness, normal capillary refill, pelvis stable Neurologic/Psychiatric: non profit director II-XII nml as tested, no motor/sensory deficits, alert, normal mood/affect, oriented x 3 Skin: normal color, warm/dry, no rash Lymphatic: no adenopathy Assessment and Plan 52 y/o F who was admitted on 10/30 2017 for intractable n/v, metastatic pancreatic ca, now is on comfort methods Intractable n/v/pain likely secondary to metastatic pancreatic ca, was uncomfortable, and comes and goes, Has been continue tube feeding well controlled, continue treat symptomatically, supportive care, diet as tolerated Continue stool regimen for constipation Severe pain in lower back from metastatic cancer disease, Better with NURSING PROGRAM COORDINATOR pump, current basal rate of 0.2mg/hr , continue fentanyl patch, and Oxycodone as needed Agree continue NURSING PROGRAM COORDINATOR pump continued upon discharge, PICC placed Metastatic pancreatic cancer: Local oncology on the case, patient and family decided comfort measure, plan half-way hospice care after pain better controlled with oral or topical regimen, Afib: noted in the ED, was having episodes of A. fib yesterday, help with additional dose of metoprolol, currently stable Hypotensive on arriving to emergency , resolved Hyponatremia upon admission Hypomagnesemia, replaced Leukocytosis upon admission at WBC 19,000, with hypotensive in the emergency room: No sign of sepsis for now The above condition related to be stable, no any lab testing needed because the goal of care has changed to comfort measures Continue current care , planning half-way hospice care tomorrow, comfortable DNR/DNI Continued [facility] stay due to: multiple IV medications needed Discharge planning: snf facility (hospice care)
[2017-11-06] MEDS: HYDROmorphone HCL 0.5MG/ML 50 ML CASSETTE IV PRN (13:42)
[2017-11-06 16:46] VITALS: BP 101/59; PULSE 61; TEMP 36.7; O2SAT 98
[2017-11-06 20:00] VITALS: BP 99/66; PULSE 58; TEMP 36.8; O2SAT 93
[2017-11-06] MEDS: [UNRECOGNIZED DRUG - OTHER] JT SCH (20:55)
[2017-11-06 23:00] VITALS: BP 99/64; PULSE 61; TEMP 37; O2SAT 96
[2017-11-07] MEDS: CHECK FENTANYL PATCH PLACEMENT SCH ×3 (00:10→15:24)
[2017-11-07] MEDS: DEXAMETHASONE 4 MG TAB PO SCH ×3 (00:10→13:11)
[2017-11-07] MEDS: ONDANSETRON 4MG OD TAB SL PRN ×3 (02:08→15:33)
[2017-11-07] MEDS: OXYCODONE HCL 20 MG/1 ML UDP GT PRN ×3 (02:11→15:23)
[2017-11-07 04:00] VITALS: BP 115/77; PULSE 59; TEMP 36.5; O2SAT 98
[2017-11-07] MEDS: AMLODIPINE BESYLATE 5 MG TAB PEG SCH (08:26)
[2017-11-07] MEDS: METOCLOPRAMIDE HCL 10 MG/10 ML UDC PEG SCH ×2 (08:26→13:11)
[2017-11-07] MEDS: DOCUSATE SODIUM 100 MG/10 ML UDC JT SCH (08:26)
[2017-11-07] MEDS: LANSOPRAZOLE SOLUTAB 30 MG JT SCH (08:26)
[2017-11-07] MEDS: METOPROLOL TARTRATE 25 MG TAB JT SCH (08:27)
[2017-11-07] MEDS: ESCITALOPRAM OXALATE JT SCH (08:27)
[2017-11-07 08:28] VITALS: BP 121/80; PULSE 64; TEMP 36.6; O2SAT 99
[2017-11-07] MEDS: SODIUM CHLORIDE 0.9% 1000ML 1,000 ML IV SCH ×2 (08:28→10:30)
[2017-11-07] MEDS: MAGNESIUM OXIDE 400 MG TAB PO SCH (08:28)
[2017-11-07 08:50] VITALS: O2SAT 99
[2017-11-07] MEDS ORDERED: BISACODYL 10 MG SUPP PR PRN (10:15)
[2017-11-07] MEDS ORDERED: SOD PHOSPHATE/SOD BIPHOSPHATE ENEMA 132 ML BTL PR PRN (10:15)
--- NOTE | 2017-11-07 10:15 | Discharge Instructions ---
Discharge Instructions Date of Service Nov 07, 2017. Admission Reason for Admission: Dehydration, Nausea Vomiting And Diarrhea Discharge Discharge Diagnosis / Problem: intractable n/v, metastatic pancreatic cancer Discharge Goals Goal(s): Decrease discomfort, Improve function, Increase independence, Learn about illness, Diagnostic testing Activity Recommendations Activity Level: Assistance Required . Additional Information Patient informed of condition: Yes Advance Directives: Yes DNR: Yes Level of Care: Skilled Communicable Disease: No Prognosis: Deteriorating Oxygen at (LPM): 2LPM as needed to keep osat>88% Guzman Catheter: Yes Instructions / Follow-Up Instructions / Follow-Up You have intractable nausea and vomiting, metastatic pancreatic ca, Will continue hospice care after arriving to snf continue tube feeding Continue stool regimen for constipation, includes suppository or fleet enema s needed You can continue EVENTS ASSISTANT pump, current basal rate of 0.2mg/hr , continue fentanyl patch, and Oxycodone as needed You may return to hospital to continue inpatient hospice care if the comfort level not be able to be reached Follow-up with PCP in 5-7 days Call PCP if have any question Current Hospital Diet Patient's current hospital diet: Clear Liquid Diet Discharge Diet Recommended Diet: Clear Liquid Diet Pending Studies Studies pending at discharge: no List of pending studies: No Physician Orders On Transfer POLST Discussion: with POLST completion Medical Emergencies . Who to Call and When: Medical Emergencies: If at any time you feel your situation is an emergency, please call 911 immediately. . Non-Emergent Contact Non-Emergency issues call your: Primary Care Provider, Specialist . . "Provider Documentation" section prepared by Jorgito Coretz. . Core Measure Problem Core Measures: None
[2017-11-07] MEDS ORDERED: BISACODYL 10 MG SUPP PR ONE (10:30)
[2017-11-07] MEDS: FENTANYL 50 MCG/HR TDSY TD SCH (10:55)
[2017-11-07] MEDS: FENTANYL PATCH REMOVE & WASTE SCH (10:57)
[2017-11-07 13:02] VITALS: BP 121/80; PULSE 64; TEMP 36.6; O2SAT 99
--- NOTE | 2017-11-07 15:24 | Discharge Summary ---
Discharge Summary Date of Service Nov 07, 2017. Discharge Summary Admission Date: Oct 30, 2017 at 17:34 Discharge Date: Nov 06, 2017 Discharge Disposition: custodial facility Principal Diagnosis: metastatic pancreatic cancer Problems/Secondary Diagnoses: (1) Asthma, Unspecified Status: Chronic (2) Depressive Disorder Nec Status: Chronic Immunizations: Have You Had Influenza Vaccine: Unknown History of Tetanus Vaccine?: Unknown History of Pneumococcal: Unknown History of Hepatitis B Vaccine: Unknown Procedures: picc line Consultations: Oncologist, palliative care, Medication Reconciliation New Medications: Amlodipine Besylate (Amlodipine Besylate) 5 Mg Tab 5 MG PEG QAM for 30 Days, TAB Dexamethasone (Dexamethasone) 4 Mg Tab 4 MG PO Q6 for 3 Days, #12 TAB Fentanyl (Fentanyl) 50 Mcg Tdsy 50 MCG TD Q3D@1030 for 5 Days, #2 Hydromorphone HCl (Hydromorphone HCl) 0.5 Mg/Ml Inj 25 MG IV PRN PRN for Pain for 3 Days Metoprolol Tartrate (Lopressor) 25 Mg Tab 25 MG JT BID for 30 Days, TAB Oxycodone HCl (Oxycodone HCl) 20 Mg/1 Ml Soln 20-40 MG GT Q6 PRN for Pain for 3 Days Continued Medications: Acetaminophen (Acetaminophen Extra Stren) 500 Mg/15 Ml Liq 1000 MG JT Q8 PRN for Pain Docusate Sodium (Docusate Sodium) 50 Mg/5 Ml Liq 100 MG JT BID Escitalopram Oxalate (Escitalopram Oxalate) 5 Mg/5 Ml Vickie 10 MG JT QAM Lorazepam (Ativan) 0.5 Mg Tab 0.5 MG JT TID PRN for Anxiety for 3 Days, #10 TAB (This prescription has been renewed) Metoclopramide HCl (Metoclopramide HCl) 5 Mg/5 Ml Syrp 10 MG JT QID Ondasetron Odt (Zofran Odt) 4 Mg Tab 4 MG SL Q6H PRN for Nausea or Vomiting, #6 TAB Pantoprazole (Protonix) 40 Mg Tab 40 MG PO QAM CLAMP 1/2 HOUR AFTER Discontinued Medications: Fentanyl (Fentanyl) 12 Mcg Tdsy 1 PATCH TD Q72 HOURS 12.5 MCG/HR PATCH. Q72 HOURS. Lisinopril (Qbrelis) 1 Mg/Ml Vickie 5 MG JT QAM Metoprolol Tartrate (Lopressor) (Lopressor) Unknown Strength Tab 25 MG JT AMPM 10 MG/ML, TAKES 25 MG / AMPM. Oxycodone Oral Soln (Roxicodone Oral Soln) 5 Mg/5 Ml Soln 2.5-10 ML JT Q6 PRN for Pain MAY USE 5 MLS FOR MODERATE PAIN Discharge Exam Fair, pain welcome controlled, has no bowel movement, Review of Systems: Constitutional: + weakness, + fatigue, No fever, No chills, No sweats, No problem reported Eyes: No worsening of vision, No eye pain, No redness, No discharge, No diplopia, No problem reported Respiratory: No cough, No sputum, No wheezing, No shortness of breath, No dyspnea on exertion, No dyspnea at rest, No hemoptysis, No problem reported Cardiovascular: No chest pain, No orthopnea, No PND, No edema, No claudication, No palpitations, No problem reported Abdomen: + constipation, No pain, No nausea, No vomiting, No diarrhea, No GI bleeding, No problem reported Musculoskeletal: No joint pain, No muscle pain, No swelling, No calf pain, No problem reported Genitourinary - Female: No dysuria, No urinary frequency, No urinary urgency , No urinary incontinence, No urinary retention, No hematuria, No dysmenorrhea, No menorrhagia, No metrorrhagia, No rash, No vaginal bleeding, No vaginal discharge, No vaginal itching, No vulvodynia, No , No problem reported Neurologic: No memory loss, No paralysis, No weakness, No numbness/tingling , No vertigo, No balance problems, No problem reported Psychiatric: No depression symptoms, No anhedonism, No anxiety, No insomnia , No substance abuse, No problem reported Endocrine: No fatigue, No excessive thirst, No excessive urination, No problem reported Hematologic / Lymphatic: No abnormal bleeding/bruising, No clotting problems , No swollen lymph nodes, No night sweats, No problem reported Integumentary: No rash, No itch, No new/changing skin lesions, No color change, No bleeding, No problem reported Physical Exam: General Appearance: WD/WN, no apparent distress, + thin, + pertinent finding (chronic ill-looking) Eyes: normal inspection, PERRL ENT: normal ENT inspection, hearing grossly normal Neck: supple, no adenopathy Respiratory/Chest: chest non-tender, normal breath sounds, no respiratory distress, no accessory muscle use, + decreased breath sounds Cardiovascular: regular rate, rhythm, no edema, no gallop, no JVD, no murmur , normal peripheral pulses Abdomen / GI: normal bowel sounds, non tender, soft, no organomegaly, no pulsatile mass Extremities: normal inspection, no calf tenderness, normal capillary refill Neurologic/Psychiatric: environmental restoration planner II-XII nml as tested, no motor/sensory deficits , alert, normal mood/affect, normal reflexes, oriented x 3 Skin: normal color, warm/dry Hospital Course 52 y/o F who was admitted on 10/30 2017 for intractable n/v, metastatic pancreatic ca, now is on comfort methods Intractable n/v/pain likely secondary to metastatic pancreatic ca, was uncomfortable, and comes and goes, Has been continue tube feeding well controlled, continue treat symptomatically, supportive care, diet as tolerated Continue stool regimen for constipation Severe pain in lower back from metastatic cancer disease, Better with SENIOR TELECOMMUNICATIONS CONSULTANT pump, current basal rate of 0.2mg/hr , continue fentanyl patch, and Oxycodone as needed Agree continue SENIOR TELECOMMUNICATIONS CONSULTANT pump continued upon discharge, PICC placed Metastatic pancreatic cancer: Local oncology on the case, patient and family decided comfort measure, plan custodial hospice care after pain better controlled with oral or topical regimen, Afib: noted in the ED, was having episodes of A. fib yesterday, help with additional dose of metoprolol, currently stable Hypotensive on arriving to emergency , resolved Hyponatremia upon admission Hypomagnesemia, replaced Leukocytosis upon admission at WBC 19,000, with hypotensive in the emergency room: No sign of sepsis for now The above condition related to be stable, no any lab testing needed because the goal of care has changed to comfort measures Continue current care , planning custodial hospice care tomorrow, comfortable DNR/DNI Instructions / Follow-Up You have intractable nausea and vomiting, metastatic pancreatic ca, Will continue hospice care after arriving to custodial continue tube feeding Continue stool regimen for constipation, includes suppository or fleet enema s needed You can continue SENIOR TELECOMMUNICATIONS CONSULTANT pump, current basal rate of 0.2mg/hr , continue fentanyl patch, and Oxycodone as needed You may return to hospital to continue inpatient hospice care if the comfort level not be able to be reached Follow-up with PCP in -7 days Call PCP if have any question Total Time Spent: Greater than 30 minutes This includes examination of the patient, discharge planning, medication reconciliation, and communication with other providers. Discharge Instructions Please refer to the electronic Patient Visit Report (Discharge Instructions) for additional information.
--- NOTE | 2017-11-08 10:25 | Palliative Care Progress Note ---
Palliative Care Progress Note Date of Service Nov 08, 2017. Subjective Pt evaluation today including: conversation w/ family, conversation w/ excellence consultant (Dr. Jarrett, who spoke with Dr. Hernandez) Received called from Ann Garcia, liquor department manager for [facility], this morning that patient's , Levi Guy, contacted her with concern that IVF were not ordered on discharge. Patient was to be discharged on NS at 40ml/hr. Dr. Jarrett called Dr. Hernandez who is the attending at the [facility]. He is heading there soon and will order fluids. I called patient's Levi to inform him , he was appreciative and has no further questions/concerns. I also updated Ann Garcia.
== END 2017-11-07 18:20 | DRG 436 ==
LOC: C.EDB 14:58 → C.4E 17:34 → ENRESERV 18:03
PROVIDERS: ADMIT Family Medicine; ATTEND Hospitalist
DX: C25.9 Malignant neoplasm of pancreas, unspecified (principal); E87.1 Hypo-osmolality and hyponatremia; C79.51 Secondary malignant neoplasm of bone; Z51.5 Encounter for palliative care; I48.91 Unspecified atrial fibrillation; R11.2 Nausea with vomiting, unspecified; E86.0 Dehydration; I95.9 Hypotension, unspecified; Z66 Do not resuscitate; D72.829 Elevated white blood cell count, unspecified

== ENCOUNTER 2017-11-16 04:11 | Emergency (ER) | payer BC, OTHER ==
[~2017-11-16 04:11] MED LIST changes: +ACET500L2 JT; -ACTUDL10 JT; +DLD25PCA IV; +DRGTP50 TD; +DXM4 PO; -ENOX40IN SQ; +ESCI1SOL2 JT; +LPR25 JT; -METO25TA56 JT; +NRV5 PEG; -OXYC10SO JT; +RXCS GT
[2017-11-16 04:29] VITALS: TEMP 37.3
[2017-11-16] MEDS ORDERED: HYDROmorphone INJ 1 MG/ML SYR IV STA (04:36)
[2017-11-16] MEDS ORDERED: RXCS JT ×2 (05:21→05:22)
[2017-11-16] MEDS ORDERED: AMLO-110 JT (05:26)
[2017-11-16] MEDS ORDERED: METO25TA56 JT (05:28)
[2017-11-16] MEDS ORDERED: DLD25PCA (05:39)
--- NOTE | 2017-11-16 05:39 | EMERGENCY ROOM VISIT NOTE ---
History Report prepared by Duc: Azeb Reyes Under the Supervision of: Dr. Shu Yusuf M.D. First contact with patient: 04:18 Chief Complaint: OTHER COMPLAINT Stated Complaint: J-TUBE REPLACED History of Present Illness The patient is a 52 year old female who presents to the Emergency Room with complaints of an episode of her J tube falling out prior to arrival. The patient states that the tube was originally placed by [facility]. She states that she uses it for feeding and her medications. She states that earlier yesterday it seemed like it was falling out so, they refilled the balloon. She states that when the nurse came at 0200 to give her Oxycodone, the tube was already out. She complains of being in pain all over currently. The patient states that she only takes Protonix by mouth. She states that she is living in Hospice at the [facility]. She notes that she is unsure exactly when it came out, but reports that it was not out at medication rounds at 20:00. The patient notes that she cannot use her G-tube for her feedings because she has a gastric obstruction. Patient uses her G-tube for decompression of the stomach. Source of History: patient Onset: prior to arrvival Position: other (global) Quality: other (J-tube replacement) Timing: other (episode) Note: The patient complains of pain all over her body currently. Review of Systems See HPI for pertinent positives & negatives. A total of 10 systems reviewed and were otherwise negative. Past Medical & Surgical Medical Problems: (1) Abdominal pain (2) Acute gallstone pancreatitis (3) Asthma, Unspecified (4) Asthma, Unspecified (5) Depressive Disorder Nec (6) Fever (7) Hand laceration (8) Hemoperitoneum (9) Ileus (10) Ileus (11) Ovarian cyst (12) Pancreatic cancer (13) Renal cyst (14) Small bowel obstruction (15) Small bowel obstruction (16) Syncope Surgical Problems: (1) History of appendectomy (2) S/P tubal ligation (3) Status post endometrial ablation Family History Patient reports no known family medical history. Social History Smoking Status: Never Smoker Alcohol Use: occasionally Drug Use: none Marital Status: Housing Status: other (hospice) Occupation Status: employed Current/Historical Medications Scheduled Amlodipine (Norvasc), 5 MG JT QAM Docusate Sodium (Docusate Sodium), 100 MG JT BID Escitalopram Oxalate (Escitalopram Oxalate), 10 MG JT QAM Fentanyl (Fentanyl), 50 MCG TD Q3D@1030 Hydromorphone HCl (Hydromorphone HCl), UD Metoclopramide HCl (Metoclopramide HCl), 10 MG JT QID Metoprolol Tartrate (Lopressor) (Lopressor), 25 MG JT BID Nutritional Supplements (Replete), JT UD Pantoprazole (Protonix), 40 MG PO QAM [nss 0.9%], IV CONTINOUS [nss], BID Scheduled PRN Acetaminophen (Acetaminophen Extra Stren), 1,000 MG JT Q8 PRN for Pain or Fever Haloperidol (Haloperidol), 1 MG JT Q4 PRN for Nausea or Vomiting Lorazepam (Ativan), 0.5 MG JT TID PRN for Anxiety Ondasetron Odt (Zofran Odt), 4 MG SL Q6H PRN for Nausea or Vomiting Oxycodone HCl (Oxycodone HCl), 20 MG JT Q6 PRN for Moderate Pain Oxycodone HCl (Oxycodone HCl), 40 MG JT Q6 PRN for Severe Pain Allergies Coded Allergies: No Known Allergies (Unverified , 11/16/17) Physical Exam Vital Signs Date Time Temp Pulse Resp B/P (MAP) Pulse Ox O2 Delivery O2 Flow Rate FiO2 11/16/17 06:27 75 20 97/59 99 Room Air 11/16/17 05:39 77 20 105/62 97 Room Air 11/16/17 04:29 37.3 81 20 110/63 100 Room Air Physical Exam Vital signs reviewed. General: Chronically ill-appearing, in no significant distress. HEENT: No scleral icterus, PERRLA, neck supple. Atraumatic. Cardiovascular: Regular rate and rhythm, no extra sounds. Pulmonary: Clear to auscultation bilaterally, normal work of breathing. Abdomen: Soft, largely nontender, nondistended, J tube is pulled out and site is visible in LLQ, G tube in place, midline incision that is healing with packing in place, RUQ biliary tube in place. Musculoskeletal: Atraumatic, no peripheral edema. LUE had IV access with fluids running and Dilaudid LEVELER. Neurologic: Patient awake alert and oriented x 3 Skin: Warm, dry, no rash Medical Decision & Procedures ER Provider Diagnostic Interpretation: KUB: The results were interpreted by me. J tube is in good position with contrast intraluminal small bowel. Medications Administered Medications (Trade) Dose Ordered Sig/Poppy Route Start Time Stop Time Status Last Admin Dose Admin Hydromorphone HCl (Dilaudid Inj) 1 mg NOW STAT IV 11/16/17 04:36 11/16/17 04:37 DC 11/16/17 04:48 1 MG Hydromorphone HCl (Dilaudid Inj) 2 mg NOW STAT IV 11/16/17 06:03 11/16/17 06:04 DC 11/16/17 06:13 2 MG Oxycodone HCl (Roxicodone Soln) 40 mg NOW STAT GT 11/16/17 06:04 11/16/17 06:06 DC 11/16/17 06:27 40 MG ED Course 0427: Past medical records reviewed. The patient was evaluated in room A11B. A complete history and physical examination was performed. 0436: Ordered Dilaudid Inj 1 mg IV. 0541: Upon reevaluation, the patient appeared to have improvement of her symptoms. I discussed findings with her. She verbalized agreement of the treatment plan. The patient was discharged home. Medical Decision Differential diagnoses include bowel obstruction, accidental tube dislodgement, intraperitoneal feed/food administration. This patient was evaluated and appeared to be in no significant distress. Physical examination is consistent with her chronic illness. The J-tube has been displaced of the left lower quadrant. I am concerned with the integrity of the previous tube as it has now fallen out twice today. A Guzman catheter, 16 Thai, was placed into the previous insertion site. This was done without difficulty. 10 mL of normal saline solution was instilled into the balloon. The patient tolerated the procedure well. An x-ray was performed with Gastrografin contrast injected into the catheter. To my interpretation the tube appears to be in good position. The patient was instructed to give tube feedings and medications as previously prescribed through this tube. Patient will follow-up with her physician for further management. She will return to the ER for worsening of symptoms or any medical concerns. Patient seemed happy with the plan of care. Medication Reconcilliation Current Medication List: was personally reviewed by me Blood Pressure Screening Patient's blood pressure: Normal blood pressure Blood pressure disposition: Did not require urgent referral Impression Primary Impression: Encounter for feeding tube placement Additional Impression: Jejunostomy tube fell out Scribe Attestation The scribe's documentation has been prepared under my direction and personally reviewed by me in its entirety. I confirm that the note above accurately reflects all work, treatment, procedures, and medical decision making performed by me. Departure Information Dispostion Home / Self-Care Referrals Kenton Hernandez M.D. (PCP) Forms HOME CARE DOCUMENTATION FORM, IMPORTANT VISIT INFORMATION, WORK / SCHOOL INSTRUCTIONS Patient Instructions [facility] Additional Instructions Diagnosis: J-tube dislodgment, tube replacement Please use the catheter inserted as you would the feeding tube. Continue pain medications as prescribed. Follow-up with your physician for reevaluation if needed. Return to the ER for worsening of symptoms or any medical concerns. Problem Qualifiers
[2017-11-16] MEDS ORDERED: [UNRECOGNIZED DRUG - OTHER] IV (05:41)
[2017-11-16] MEDS ORDERED: NUTRLIQ JT (05:44)
[2017-11-16] MEDS ORDERED: NSS (05:45)
[2017-11-16] MEDS ORDERED: [UNRECOGNIZED DRUG - CODE] JT (05:48)
[2017-11-16] MEDS ORDERED: HYDROmorphone INJ 2 MG/ML SYR/VIAL IV STA (06:03)
[2017-11-16] MEDS ORDERED: OXYCODONE HCL SOLN 5 MG/5 ML UDC GT STA (06:04)
[2017-11-16 06:27] VITALS: BP 97/59; PULSE 75; O2SAT 99
--- NOTE | 2017-11-16 06:52 | DIAGNOSTIC IMAGING REPORT ---
KUB HISTORY: J-tube present with confirmation of placement. j tube replaced, placement, gastrografin COMPARISON: Acute abdominal series radiographs 11/29/2015, CT 08/28/2017 FINDINGS: 45 mL Optiray injected. J-tube projects over the left midabdomen. Contrast injection through the J-tube extends into a loop of jejunum without extravasation into the peritoneal cavity. The opacified loops appears normal in caliber. Surgical clips are seen within the left midabdomen. Bowel gas pattern is nonobstructive. No urolith, organomegaly, pneumoperitoneum or pneumatosis identified. Degenerative changes are noted within the pubic symphysis and lower lumbar spine. . IMPRESSION: 1. J-tube present within a loop of nondilated jejunum. No extravasation of contrast identified. 2. Nonobstructive bowel gas pattern. Electronically signed by: Matt Escalante M.D. 11/16/2017 6:50 AM Dictated Date/Time: 11/16/2017 6:48 AM
== END 2017-11-16 06:47 | disposition home or self-care (01) ==
LOC: EDBD 04:11 → C.EDA 04:14
DX: Z43.1 Encounter for attention to gastrostomy (principal); R52 Pain, unspecified; K56.699 Other intestinal obstruction unspecified as to partial versus complete obstruction; J45.909 Unspecified asthma, uncomplicated; Z79.891 Long term (current) use of opiate analgesic

== ENCOUNTER 2017-11-16 15:01 | Emergency (ER) | payer OTHER ==
[~2017-11-16] VITALS: Ht 160 cm; Wt 60.0 kg
[~2017-11-16 15:01] MED LIST changes: +AMLO-110 JT; +DLD25PCA; +METO25TA56 JT; +NSS; +NUTRLIQ JT; +RXCS JT; +[UNRECOGNIZED DRUG - CODE] JT; +[UNRECOGNIZED DRUG - OTHER] IV
[2017-11-16 15:17] VITALS: Ht 160 cm; Wt 60.0 kg
--- NOTE | 2017-11-16 16:14 | EMERGENCY ROOM VISIT NOTE ---
ED Visit Note First contact with patient: 15:11 CHIEF COMPLAINT: J-tube problem HISTORY OF PRESENTING ILLNESS: This is a 52-year-old female who presents to the emergency department with complaint of J-tube problem. Patient states that she came in early this morning because her J-tube had fallen out, they put in a temporary Guzman catheter, and she is concerned because it is leaking a lot around the catheter. Patient is on hospice for pancreatic cancer, and the J- tube is used to give her medications and nutritional supplements. She states the hospice nurses were concerned about giving medications through the tube with it leaking as much as it was. She states that she had her original tube placed in September by surgical oncology fever/chills or feeling ill at [facility]. She denies any, headaches, chest pain, shortness of breath, dizziness or syncope, abdominal pain, back pain, nausea or vomiting, diarrhea, urinary symptoms, or rash. REVIEW OF SYSTEMS: A complete 10 point review of systems was reviewed with the patient with pertinent positives and negatives as per history of present illness. All else were negative. PAST MEDICAL HISTORY: Reviewed in chart SOCIAL HISTORY: On hospice. Denies tobacco use, alcohol use, recreational drug use. ALLERGIES: No known allergies. PHYSICAL EXAM: CONSTITUTIONAL: Pleasant and cooperative. No acute distress. Frail and cachectic appearing, but otherwise appears well. Well-hydrated. HEENT: Normocephalic, atraumatic. Pupils equal, round and reactive to light, EOMI. TMs normal. Pharynx normal. Moist mucous membranes. NECK: Supple, full active range of motion without discomfort. RESPIRATORY: Clear to auscultation bilaterally with no wheezing, crackles, rhonchi or stridor. Equal expansion bilaterally. CARDIOVASCULAR: Regular rate and rhythm with no murmurs, rubs or gallops. Normal peripheral perfusion. No edema. GASTROINTESTINAL: Soft, nontender, nondistended. No palpable masses or HSM. Bowel sounds present in all quadrants. G-tube and J-tube sites noted to left upper quadrant abdomen. There is a moderate amount of light yellow watery discharge around the J-tube opening. No excoriation or tenderness. MUSCULOSKELETAL: Full range of motion of all joints without discomfort. INTEGUMENTARY: No rash or other significant dermatologic conditions noted. NEUROLOGIC: Alert and oriented X 4 with normal affect. No focal neurologic deficits noted. Normal speech. ED COURSE AND MEDICAL DECISION MAKING: CC: Patient presenting with complaint of J-tube leaking DIFFERENTIAL DIAGNOSIS: Includes, but not limited to improper tube size, and proper placement of tube, outlet obstruction, among others. IMAGING: KUB CLINICAL HISTORY: J-TUBE PLACEMENT CHECK WITH OPTIRAY tube position COMPARISON STUDY: No previous studies for comparison. FINDINGS: Contrast is identified within the bowel. There is no direct contrast overlying the tip of the catheter, although this is seen on later images although there is no evidence for extraluminal contrast. Appears be a similar location to the prior exam. IMPRESSION: Administered contrast appears be localized within the small bowel. No evidence for contrast extravasation. Tip of the catheter with an inflated balloon is within the lumen of the small bowel. MEDICATION RECONCILIATION: I attest that I have personally reviewed the patient 's current medication list. INITIAL VITAL SIGNS REVIEW: I reviewed the patient's initial vital signs and interpret them as follows: T: Afebrile; BP: Hypertensive (baseline per patient) ; HR: Within normal limits; RR: Within normal limits; Pulse Ox: Within normal limits on room air. Blood pressure screening: The patient was found to have normal blood pressure on screening and does not require follow-up for repeat blood pressure check. SUMMARY: Patient was evaluated at bedside, history and physical exam performed. Patient is alert and oriented, in no acute distress, resting calmly in the stretcher. Evaluation of the J-tube site noting leakage of fluid around the inserted catheter. No excoriation, abnormal discharge, or tenderness to concern for skin breakdown or infection. Patient brought in her previous J-tube, it is noted that this is a 16 Cambodian tube with a proximal balloon, and the Guzman catheter placed this morning is a 14 Cambodian tube with a distal balloon. Patient discussed with Dr. Ruff, who agrees with my assessment and plan. I discussed with the charge nurse regarding availability of 16 Cambodian J-tube. She states that gastroenterology is available for possible consult. Dr. Tavera with gastroenterology agreed to consult for the patient. We do not have the correct J-tube on supply. He placed a 16 Cambodian Guzman catheter in the patient's J-tube site and inflated the balloon with 5 cc of sterile water. Placement of the Guzman catheter was confirmed with KUB series. Patient reassessed multiple times throughout ED stay, she continues to experience significant leakage from the J-tube site, and does not feel comfortable being discharged home. I discussed at length with the patient and her , they would like to be transferred to [facility] for definitive management of her J-tube. I spoke on the phone with Dr. Toure, ED physician at [facility], who accepts the patient as an ED to ED transfer. Patient prefers to be sent by private vehicle, I believe this is a reasonable plan. She has a functioning Dilaudid [employer]EL[employer] pump for pain management en route. Patient was stable at time of discharge for transfer. Problem List Medical Problems: (1) Abdominal pain Status: Resolved (2) Asthma, Unspecified Status: Chronic (3) Depressive Disorder Nec Status: Chronic (4) Hand laceration Status: Resolved (5) Hemoperitoneum Status: Resolved (6) Ileus Status: Resolved (7) Ileus Status: Resolved (8) Ovarian cyst Status: Resolved (9) Renal cyst Status: Resolved (10) Small bowel obstruction Status: Resolved (11) Syncope Status: Resolved Surgical Problems: (1) History of appendectomy Status: Resolved (2) S/P tubal ligation Status: Resolved (3) Status post endometrial ablation Status: Resolved Current/Historical Medications Scheduled Amlodipine (Norvasc), 5 MG JT QAM Docusate Sodium (Docusate Sodium), 100 MG JT BID Escitalopram Oxalate (Escitalopram Oxalate), 10 MG JT QAM Fentanyl (Fentanyl), 50 MCG TD Q3D@1030 Hydromorphone HCl (Hydromorphone HCl), UD Metoclopramide HCl (Metoclopramide HCl), 10 MG JT QID Metoprolol Tartrate (Lopressor) (Lopressor), 25 MG JT BID Nutritional Supplements (Replete), JT UD Pantoprazole (Protonix), 40 MG PO QAM [nss 0.9%], IV CONTINOUS [nss], BID Scheduled PRN Acetaminophen (Acetaminophen Extra Stren), 1,000 MG JT Q8 PRN for Pain or Fever Haloperidol (Haloperidol), 1 MG JT Q4 PRN for Nausea or Vomiting Lorazepam (Ativan), 0.5 MG JT TID PRN for Anxiety Ondasetron Odt (Zofran Odt), 4 MG SL Q6H PRN for Nausea or Vomiting Oxycodone HCl (Oxycodone HCl), 20 MG JT Q6 PRN for Moderate Pain Oxycodone HCl (Oxycodone HCl), 40 MG JT Q6 PRN for Severe Pain Allergies Coded Allergies: No Known Allergies (Unverified , 11/16/17) Vital Signs Date Time Temp Pulse Resp B/P (MAP) Pulse Ox O2 Delivery O2 Flow Rate FiO2 11/16/17 21:19 36.8 75 18 90/56 98 11/16/17 19:10 75 18 92/48 98 Room Air 11/16/17 17:56 70 19 98/72 98 Room Air 11/16/17 15:17 36.8 74 20 97/61 92 Room Air Departure Information Impression Primary Impression: Jejunostomy tube leak Dispostion Transfer Acute Care Facility (discharged, going by private vehicle) Condition GOOD Referrals Tiffani Gabriel MD (PCP) Patient Instructions My [facility] Additional Instructions You are being discharged with plans to transfer to [facility] emergency department. Go directly to the emergency department and you will be evaluated from there.
--- NOTE | 2017-11-16 18:06 | DIAGNOSTIC IMAGING REPORT ---
KUB CLINICAL HISTORY: J-TUBE PLACEMENT CHECK WITH OPTIRAY tube position COMPARISON STUDY: No previous studies for comparison. FINDINGS: Contrast is identified within the bowel. There is no direct contrast overlying the tip of the catheter, although this is seen on later images although there is no evidence for extraluminal contrast. Appears be a similar location to the prior exam. IMPRESSION: Administered contrast appears be localized within the small bowel. No evidence for contrast extravasation. Tip of the catheter with an inflated balloon is within the lumen of the small bowel. The above report was generated using voice recognition software. It may contain grammatical, syntax or spelling errors. Electronically signed by: Agusto Gonzalez M.D. 11/16/2017 6:05 PM Dictated Date/Time: 11/16/2017 6:02 PM
--- NOTE | 2017-11-16 18:19 | GASTROINTESTINAL CONSULTATION ---
DATE OF CONSULTATION: 11/16/2017 CONSULTING PROVIDER: Emergency Room. DICTATION ENDS HERE Please see dictation of several minutes later. This call was terminated. LORA
--- NOTE | 2017-11-16 18:29 | GASTROINTESTINAL CONSULTATION ---
DATE OF CONSULTATION: 11/16/2017 CHIEF COMPLAINT: Dislodged jejunal tube leaking. HISTORY OF PRESENT ILLNESS: Mrs. Guy is a 52-year-old white female known to me for pancreatic cancer, who underwent surgery and chemotherapy and is now currently on hospice at a custodial. The patient had had surgery with revision and ultimately with a gastrojejunostomy, Edgar-en-Y limb. The patient earlier this morning was seen in the Emergency Room for a tube that had dislodged from the jejunostomy site. In the ER, the physician had replaced the 16-American jejunostomy tube with a 14-American Simon catheter and expanded the balloon to 10 mL. A contrast study through the tube showed placement in the small bowel. The balloon could be visualized. The patient went home, but returned as there was food material leaking from the jejunostomy site. The patient also has an indwelling gastrostomy tube for venting purposes. The patient does eat for a pleasure, but has at times clamped the tube off hoping that nutrition from what she takes in can be assimilated. The also commented that after jejunostomy tube replacement today that some of her tube feeds and colored medication seemed to come back out along side of the tube. PAST MEDICAL HISTORY: Significant for the pancreatic cancer. Includes appendectomy, tubal ligation, endometrial ablation, small-bowel obstruction, ovarian cyst, hand laceration, asthma. ALLERGIES: She has no known drug allergies. MEDICATIONS: The patient's medication list is included in the chart and was reviewed. REVIEW OF SYSTEMS: Otherwise noncontributory. MEDICATIONS: Included amlodipine, docusate, escitalopram, fentanyl, hydromorphone, metoclopramide, metoprolol, and pantoprazole. PHYSICAL EXAMINATION: VITAL SIGNS: Temperature at the present time 36.8, heart rate 74, respirations 20, blood pressure 97/61, 92% on room air. GENERAL: The patient is lethargic but did easily arouse and is oriented to person, place and time and recognizes this provider. The patient is accompanied by her . HEENT: The sclerae are anicteric. Conjunctivae are moist. Oral mucosa is parched. HEART: Normal S1, S2. LUNGS: Clear to auscultation overall. ABDOMEN: Soft, nontender, nondistended with positive bowel sounds. There is a G-tube site draining gastric contents and meal eaten earlier today. The jejunostomy site has a stoma adhesive applied circumferentially around the 14-American Simon catheter that was placed earlier this morning. There is no blood from area. This material was removed and the site is oval intact without significant ulceration, induration, erythema or excoriation. EXTREMITIES: Without edema. The previously placed Simon tube was removed by me by deflating the balloon which had approximately 10-12 mL of fluid and was extracted without difficulty. A replacement Simon catheter of 16-American was advanced without difficulty and irrigated well with water. The balloon was only partially filled with 5 mL; however, with inspection, there was a small amount of the water irrigant that was emanating from the jejunostomy stomal opening. Therefore, the balloon was let down. I proceeded to the xray dept to have a contrast study to help localize the tube within the bowel firstly and to gauge the distance of insertion from the stoma to the tip of the catheter. the tube was repositioned in radiology and seems to be in good working order and location. gthe tube was fixed to the abdominal wall with a adhesive simon device. LABORATORY DATA: There are no labs during this ER visit. IMPRESSION: The patient had a 16-American jejunostomy tube with an external bumper and an internal balloon that captured this tube and fixed its position with the abdominal wall. Unfortunately, the hospital does not have this type of jejunostomy tube and would need to be ordered. It is hopeful that the replaced Simon catheter, a 16-American into the small bowel is in proper location and may suffice temporarily until a more suitable and appropriate tube can be either obtained locally or alternatively replaced at [place] by the surgical oncology/IR. However, I did recommend, in addition to watching the output from the jejunostomy site, that the patient not clamp the gastric tube after any oral ingestion in order to try and decompress the stomach. I suspect that some of the food is still making it through into the small bowel and was hitting the balloon that was expanded earlier today having had back flow across the jejunostomy site. Hopefully, without the balloon inflated and a 16-American size will minimize any leakage. Nevertheless, I believe that the purpose of the G-tube for decompression should be kept open to gravity at all times and that ingested food should be for pleasure only without an expectation of any consistent nutritional benefit. If gastric outputs are high , then this should be compensated for by jejunal feeds to offset fluid losses. Depending on the success of this tube, a proper jejunostomy tube 16-American, if it can be obtained through the hospital would be the best solution to reduce leakage and permit its jejunal feeding and medicine administration. All questions answered for pt/. Addendum: I called with the patient the next morning and she had continued leaking after D /C from [facility] ER. She went to [facility] and had a J tube replaced and sutured in place. All questions answered. dominick PAULINO
[2017-11-16 21:19] VITALS: BP 90/56; PULSE 75; TEMP 36.8; O2SAT 98
== END 2017-11-16 21:20 | disposition short-term general hospital (02) ==
LOC: EDBD 15:04 → C.EDB 15:06
DX: K94.23 Gastrostomy malfunction (principal); Z51.5 Encounter for palliative care; C25.9 Malignant neoplasm of pancreas, unspecified; J45.909 Unspecified asthma, uncomplicated; F32.9 Major depressive disorder, single episode, unspecified; Z98.51 Tubal ligation status; Z79.899 Other long term (current) drug therapy